=== PATIENT | female | born 1985 | race Caucasian/White ===

== ENCOUNTER 2021-02-06 12:02 | Outpatient (REF) | payer MEDICARE, SELFPAY ==
[2021-02-06 13:44] LABS: MANUAL DIFF FLAG NO
[2021-02-06 13:58] LABS: Basophils Absolute Auto 0.1 X10*3/uL (0.0-0.2); Basophils Percent Auto 0.7 % (0-2); Eosinophils Absolute Auto 0.1 X10*3/uL (0.0-0.4); Eosinophils Percent Auto 1.9 % (0-4); Hematocrit 29.6 % (37-47); Hemoglobin 8.5 g/dl (12.0-16.0); Imm Gran Abs Auto 0.01 X10*3/uL (0.00-0.03); Imm Gran Pct Auto 0.1 % (0.0-0.4); Lymphocytes Absolute Auto 1.8 X10*3/uL (1.2-4.9); Lymphocytes Percent Auto 26.2 % (20-40); Mean Corpuscular HGB Conc 28.7 g/dl (31.0-35.0); Mean Corpuscular Hemoglobin 19.5 pg (27.0-33.0); Mean Platelet Volume 10.1 fL (9.4-12.3); Monocytes Absolute Auto 0.6 X10*3/uL (0.1-1.2); Monocytes Percent Auto 8.4 % (2-11); Neutrophils Absolute Auto 4.2 X10*3/uL (2.0-8.3); Neutrophils Percent Auto 62.7 % (45-73); Platelet Count 289 X10*3/uL (160-400); Red Blood Count 4.35 X10*6/uL (4.20-5.50); Red Cell Distribution Width 17.2 % (11.0-16.0); White Blood Count 6.7 X10*3/uL (4.8-10.8)
[2021-02-06 14:09] LABS: Alanine Aminotransferase 13 U/L (0-31); Albumin Level 3.9 g/dL (3.5-5.0); Alkaline Phosphatase 87 U/L (39-117); Anion Gap 12 (12-20); Aspartate Amino Transferase 14 U/L (5-31); Bilirubin Total 0.4 mg/dL (0.0-1.0); Blood Urea Nitrogen 6 mg/dL (9-16); C Reactive Protein 0.17 mg/dL (< or = 0.50); Calcium 8.8 mg/dL (8.4-10.2); Carbon Dioxide 24 mmol/L (22-29); Chloride 104 mmol/L (96-108); Cholesterol 143 mg/dL; Estimated Glomerular Filt Rate > 60; Glucose Fasting 83 mg/dL (60-99); HDL Cholesterol 55 mg/dL; Iron 21 mcg/dL (30-160); LDL Cholesterol Calculated 78 mg/dl; Magnesium 1.9 mg/dL (1.6-2.6); Percent Iron Saturation 4 % (15-50); Potassium 3.9 mmol/L (3.3-5.1); Sodium 136 mmol/L (135-145); Total Iron Binding Capacity 487 mcg/dL (228-428); Total Protein 6.3 g/dL (6.5-8.0); Triglycerides 53 mg/dL; Unsaturated Iron Binding 466 ug/dL
[2021-02-06 14:33] LABS: Free T4 (Free Thyroxine) 1.03 ng/dL (0.71-1.85); Thyroid Stimulating Hormone 1.56 uIU/mL (0.32-4.0); Vitamin D 25-OH Total 15.2 ng/mL (>30)
[2021-02-06 14:50] LABS: Vitamin B12 < 146 pg/mL (200-900)
[2021-02-07 09:07] LABS: Follicle Stimulating Hormone 5.5 mIU/mL; Lutenizing Hormone 15.2 mIU/mL
== END 2021-02-06 12:03 | disposition home or self-care (01) ==
LOC: HO.10HDL 12:02
PROVIDERS: Visit Provider Internal Medicine
DX: Z00.00 Encounter for general adult medical examination without abnormal findings (principal); E55.9 Vitamin D deficiency, unspecified; D64.9 Anemia, unspecified; D51.9 Vitamin B12 deficiency anemia, unspecified
CPT/HCPCS: 36415; 80053; 80061; 82306; 82607; 83001; 83002; 83540; 83735; 84439; 84443; 85025; 86140

== ENCOUNTER 2021-07-24 14:56 | Outpatient (REF) | payer MEDICARE, SELFPAY ==
--- NOTE | ~2021-07-24 | CT_ITS ---
EXAMINATION: CT ABDOMEN AND PELVIS WITHOUT CONTRAST CLINICAL INFORMATION: Generalized abdominal pain. COMPARISON: CT abdomen and pelvis 07/04/2019 TECHNIQUE: Multidetector volumetric imaging was performed from the superior aspect of the liver through the pubic symphysis. Sagittal and coronal reformatted images were obtained on the technologist's workstation. This CT examination was performed using dose optimization techniques as appropriate, variously including the following: *Automated exposure control *Adjustment of mA and/or kV according to patient size (this includes techniques or standardized protocols for targeted exams where dose is matched to indication/reason for exam; i.e. extremities or head) *Use of iterative reconstruction technique DLP: DLP: 615 mGy-cm FINDINGS: LUNG BASES: There is ill-defined subpleural opacity of the left lung base likely scarring versus atelectasis. LIVER, GALLBLADDER, AND BILIARY TREE: The liver is normal in size, shape, and attenuation. No focal hepatic lesion or biliary ductal dilatation is present. The gallbladder is unremarkable with no evidence of radiopaque gallstones, gallbladder wall thickening, or obvious pericholecystic inflammatory changes. PANCREAS: Unremarkable. SPLEEN: There is a tiny accessory splenule. ADRENAL GLANDS: There is a 1.9 x 1.5 cm left adrenal nodule measuring 30 Hounsfield units. The right adrenal gland is normal.. KIDNEYS AND URETERS: Both kidneys are normal in size, contour and shape. No radiopaque renal calculi or hydronephrosis seen. There is no perinephric stranding. BLADDER: Unremarkable. GASTROINTESTINAL TRACT: There is moderate scattered stool in the colon without any significant distention. The small bowel loops are of normal caliber. The appendix is not visualized with certainty. No free air or free fluid is seen. The stomach is nondistended. ABDOMINAL WALL: No significant hernia is appreciated. LYMPH NODES: No abnormal sized lymph nodes are seen. VASCULAR: Unremarkable. PELVIC VISCERA: The uterus is anteverted with scattered calcifications in the right uterus likely fibroid disease. There is a López catheter within the bladder. There is no free fluid in the cul-de-sac. OSSEOUS STRUCTURES: There are moderate bridging osteophytes throughout the lumbar spine. No lytic or sclerotic process seen. CT/CT abdomen pelvis wo con IMPRESSION: Left adrenal mass measuring 1.9 x 1.5 cm. Previously it measured 1.8 x 1.9 x 1.10 cm. It is not a simple adenoma. Recommend further evaluation with MRI abdomen without and with contrast. Calcified lesion right uterus likely fibroid disease. Significant degenerative disease throughout the lumbar spine. Overall no change compared to last CT abdomen exam 07/04/2019.
== END 2021-07-24 14:57 | disposition home or self-care (01) ==
LOC: HO.CT 14:56
PROVIDERS: PCP Internal Medicine; Visit Provider Internal Medicine
DX: R10.84 Generalized abdominal pain (principal)
CPT/HCPCS: 74176

== ENCOUNTER 2021-11-16 11:50 | Inpatient (IN) | payer MEDICARE, SELFPAY ==
--- NOTE | ~2021-11-16 | CT_ITS ---
EXAMINATION: CT PELVIS WITH CONTRAST CLINICAL INFORMATION: Buttock wound COMPARISON: None TECHNIQUE: Helical scanning was performed with submillimeter collimation through the pelvis with the use of oral contrast and during bolus intravenous injection of 85 mL of Omnipaque 350 intravenous contrast. Sagittal and coronal multiplanar 2-D reconstructions were obtained. This CT examination was performed using dose optimization techniques as appropriate, variously including the following: *Automated exposure control *Adjustment of mA and/or kV according to patient size (this includes techniques or standardized protocols for targeted exams where dose is matched to indication/reason for exam; i.e. extremities or head) *Use of iterative reconstruction technique DLP: 315 mGy-cm FINDINGS: PELVIS: There is disc cubital ulcer along the posterior left upper thigh with underlying subcutaneous abscess measures 5 x 5.3 cm, the abscess is abutting the left ischio bone without CT evidence of bone destruction. The fluid does not involve the deep pelvic musculature or intrapelvic organs. There is a López catheter in the urinary bladder. There are uterine masses likely fibroids one of which is partially calcified. Included bowels unremarkable. No adenopathy. No free air or fluid in the pelvis. OSSEOUS STRUCTURES: There are degenerative osteoarthritic changes of hip joints and spine. No destructive bony changes. CT/CT pelvis w con IMPRESSION: *Left posterior upper thigh decubital ulcer with subcutaneous abscess directly open to the ulcer extends deep abutting the pelvic bone without CT evidence of bone destruction to suggest osteomyelitis at this time. *López catheter in place in the bladder. *There are uterine masses likely fibroids. *Arthritis.
--- NOTE | 2021-11-16 11:57 | ED_ITS ---
HPI - General Adult General Chief complaint: Wound/Laceration Stated complaint: L BUTTOCK WOUND PER EMS Time Seen by Provider: 11/16/21 11:52 Source: patient, family and EMS Mode of arrival: EMS Limitations: no limitations History of Present Illness HPI narrative: 36 yo female with history of spinal cord injury (subsequent para) here with complaints of buttocks wound noted to the left buttocks x 1 month. Initially during a transfer she had a abrasion described as rug burn which occurred one month ago, worsening over the last week. Seen by PCP yesterday and referred in to the ER for further eval. No fevers, chills. +nausea, diarrhea. Related Data Home Medications Medication Instructions Recorded Confirmed baclofen 20 mg tablet 1 tab PO BID 11/16/21 11/16/21 darifenacin 7.5 mg tablet,extended 1 tab PO DAILY 11/16/21 11/16/21 release 24 hr docusate sodium 100 mg capsule 100 mg PO DAILY 11/16/21 11/16/21 (Colace) gabapentin 300 mg capsule 1 cap PO TID 11/16/21 11/16/21 multivitamin 1 tab PO DAILY 11/16/21 11/16/21 sertraline 100 mg tablet 1.5 tab PO DAILY 11/16/21 11/16/21 Allergies Allergy/AdvReac Type Severity Reaction Status Date / Time cashew nut [CASHEW NUT] Allergy Unknown VOMITING Unverified 04/26/20 16:32 Iodinated Contrast Media Allergy Unknown HIVES Unverified 04/26/20 16:32 [IV CONTRAST] latex [LATEX] Allergy Unknown RASH Unverified 04/26/20 16:32 latix Allergy Unknown rash Uncoded 11/02/19 00:00 Review of Systems Review of Systems: Yes all other systems are reviewed and are negative Constitutional: Constitutional: Reports no additional constitutional complaints, Denies body ache(s), Denies chills, Denies fever(s), Denies headache(s) and Denies weakness Eyes: Eyes: Reports no additional eye complaints and Denies change in vision ENT: Reports system reviewed and no additional complaints, except as documented, Denies dizziness, Denies headache(s), Denies nasal congestion, Denies nasal discharge and Denies neck pain Cardiovascular: Cardiovascular: Reports no additional cardiovascular complaints, Denies chest pain, Denies leg edema and Denies dyspnea Respiratory: Respiratory: Reports no additional respiratory complaints, Denies cough and Denies dyspnea Gastrointestinal: Gastrointestinal: Reports no additional gastrointestinal complaints, Denies abdominal pain, Reports diarrhea, Reports nausea and Denies vomiting Genitourinary: Genitourinary: Reports no additional female genitourinary complaints and Denies urinary incontinence Musculoskeletal: Musculoskeletal: Reports no additional musculoskeletal complaints, Denies back pain, Denies arthralgias, Denies joint swelling, Denies neck pain, Denies numbness and Denies tingling Integumentary/Breasts: Skin/Breast: Reports system reviewed and no additional complaints, except as docu, Denies rash and Reports wounds Neurologic: Reports system reviewed and no additional complaints, except as documented, Denies dizziness, Denies headache(s), Denies numbness, Denies tingling and Denies weakness PMFSH Past Medical History Attestation statement: The following information was validated with the patient. Source: old records reviewed and nursing notes reviewed Medical History Hx of neck injury Spinal cord injury, C5-C7 Social History Social History Patient Tobacco Use Status: Never used Tobacco Use of substances other than those prescribed or required for medical reasons: No Advance Directives: No Advance Directives Information Provided: No Physical Exam ED Vital Signs: Vital Signs - 24 hr 11/16/21 11:58 11/16/21 14:40 Temperature 99.0 F Pulse Rate 84 89 Respiratory Rate 18 18 Blood Pressure 105/58 L 126/75 Pulse Oximetry 98 98 BMI result Body Mass Index 23.6 Const General: cooperative Orientation/consciousness: patient oriented x3 Limitations: wheelchair HENMT Head: Yes normal to inspection Ears: hearing grossly normal bilaterally and TM's normal bilaterally General nose exam: Normal external nose present Face and sinus: Yes normal facial exam Mouth: Normal oral and palatal mucosa present Throat: Yes posterior oropharynx normal, Yes tonsils normal and Yes uvula midline Eyes General: appearance normal, both eyes and all related structures Pupils: Equal, round and reactive pupils present Neck Neck: Yes normal visual inspection Chest Chest palpation & inspection: normal inspection of the chest Resp Effort & Inspection: normal respiratory effort Auscultation: clear to auscultation bilaterally Cardio Rate: regular rate Rhythm: regular rhythm Peripheral pulses: Peripheral pulses 2+ throughout GI Inspection: Yes normal to inspection Back/Spine/Pelvis Other: Neuro General: patient oriented x3 Cranial nerves: Yes Equal, round and reactive pupils present Course Course Course Narrative: 36 yo female here with wound to left buttocks x 1 month worsened over last week. Will need labs including blood cultures, lactic acid, CT w/ contrast (needs pre- medication with benadryl d/t having a single lesion on cheek from previous CT thought to be allergic reaction), COVID testing, urine . At this time i nfection is suspected. Antibiotics ordered. 1500-Labs show microcytic anemia (patient tells me she has BRITT and Vit B12 deficiency but has been noncompliant with medications)-denies current bleeding, elevated inflammatory markers. CT shows ulcer with SQ abscess extending to the pelvic bone with no evidence of osteomyelitis. I anticipate the wound will need debridement with surgical consult. Will admit to medicine d/t underlying medical conditions. 1550-Spoke to Dr Keller who will admit patient. Medical Decision Making Medical Records Medical records reviewed: Yes I reviewed the patient's medical records. Lab Data Lab results reviewed: Yes I reviewed the patient's lab results. Result diagrams: 11/16/21 12:46 11/16/21 12:46 Labs: Lab Results 11/16/21 11/16/21 11/16/21 Range/Units 12:46 12:46 12:46 WBC 7.3 (4.8-10.8) X10*3/uL RBC 4.17 L (4.20-5.50) X10*6/uL Hgb 7.8 L (12.0-16.0) g/dl Hct 27.4 L (37.0-47.0) % MCV 65.7 L (80.0-98.0) fL MCH 18.7 L (27.0-33.0) pg MCHC 28.5 L (31.0-35.0) g/dl RDW 17.5 H (11.0-16.0) % Plt Count 388 (160-400) X10*3/uL MPV 8.9 L (9.4-12.3) fL Immature Gran % (Auto) 0.3 (0.0-0.4) % Neut % (Auto) 62.7 (45-73) % Lymph % (Auto) 22.3 (20-40) % Schuyler % (Auto) 11.7 H (2-11) % Eos % (Auto) 2.2 (0-4) % Baso % (Auto) 0.8 (0-2) % Lymph # (Auto) 1.6 (1.2-4.9) X10*3/uL [place]uyler # (Auto) 0.9 (0.1-1.2) X10*3/uL Eos # (Auto) 0.2 (0.0-0.4) X10*3/uL Baso # (Auto) 0.1 (0.0-0.2) X10*3/uL Abs Immat Gran (auto) 0.02 (0.00-0.03) X10*3/uL Absolute Neuts (auto) 4.6 (2.0-8.3) x10*3/uL Absolute Nucleated RBC 0.000 (0.0-0.012) X10*3/uL Nucleated RBC % (auto) 0.0 (0.0-0.2) /100WBC ESR 20 (0-20) MM/HR Sodium 135 (135-145) mmol/L Potassium 4.3 (3.3-5.1) mmol/L Chloride 104 (96-108) mmol/L Carbon Dioxide 18 L (22-29) mmol/L Anion Gap 17 (12-20) BUN 5 L (9-16) mg/dL Creatinine 0.44 L (0.5-1.4) mg/dL Estim Creat Clear Calc 182.9 Estimated GFR > 60 Random Glucose 86 (60-115) mg/dL Lactic Acid (0.5-2.0) mmol/L Calcium 8.6 (8.4-10.2) mg/dL Total Bilirubin 0.3 (0.0-1.0) mg/dL Direct Bilirubin < 0.2 (0.0-0.5) mg/dL AST 24 D (5-31) U/L ALT 14 (0-31) U/L Alkaline Phosphatase 82 (39-117) U/L C-Reactive Protein 3.05 H (< or = 0.50) mg/dL Total Protein 6.0 L (6.5-8.0) g/dL Albumin 3.3 L (3.5-5.0) g/dL Urine Test (NEGATIVE) COVID-19 (KARYNA) (Negative) COVID-19 Clin Com 11/16/21 11/16/21 11/16/21 Range/Units 12:46 12:58 13:14 WBC (4.8-10.8) X10*3/uL RBC (4.20-5.50) X10*6/uL Hgb (12.0-16.0) g/dl Hct (37.0-47.0) % MCV (80.0-98.0) fL MCH (27.0-33.0) pg MCHC (31.0-35.0) g/dl RDW (11.0-16.0) % Plt Count (160-400) X10*3/uL MPV (9.4-12.3) fL Immature Gran % (Auto) (0.0-0.4) % Neut % (Auto) (45-73) % Lymph % (Auto) (20-40) % Schuyler % (Auto) (2-11) % Eos % (Auto) (0-4) % Baso % (Auto) (0-2) % Lymph # (Auto) (1.2-4.9) X10*3/uL Schuyler # (Auto) (0.1-1.2) X10*3/uL Eos # (Auto) (0.0-0.4) X10*3/uL Baso # (Auto) (0.0-0.2) X10*3/uL Abs Immat Gran (auto) (0.00-0.03) X10*3/uL Absolute Neuts (auto) (2.0-8.3) x10*3/uL Absolute Nucleated RBC (0.0-0.012) X10*3/uL Nucleated RBC % (auto) (0.0-0.2) /100WBC ESR (0-20) MM/HR Sodium (135-145) mmol/L Potassium (3.3-5.1) mmol/L Chloride (96-108) mmol/L Carbon Dioxide (22-29) mmol/L Anion Gap (12-20) BUN (9-16) mg/dL Creatinine (0.5-1.4) mg/dL Estim Creat Clear Calc Estimated GFR Random Glucose (60-115) mg/dL Lactic Acid 0.9 (0.5-2.0) mmol/L Calcium (8.4-10.2) mg/dL Total Bilirubin (0.0-1.0) mg/dL Direct Bilirubin (0.0-0.5) mg/dL AST (5-31) U/L ALT (0-31) U/L Alkaline Phosphatase (39-117) U/L C-Reactive Protein (< or = 0.50) mg/dL Total Protein (6.5-8.0) g/dL Albumin (3.5-5.0) g/dL Urine Test NEGATIVE (NEGATIVE) COVID-19 (KARYNA) Negative (Negative) COVID-19 Clin Com See Note Imaging Data CT pelvis w/ contrast: Attestation: I personally reviewed and interpreted this imaging study as follows: Radiologist's impression: FINDINGS: PELVIS: There is disc cubital ulcer along the posterior left upper thigh with underlying subcutaneous abscess measures 5 x 5.3 cm, the abscess is abutting the left ischio bone without CT evidence of bone destruction. The fluid does not involve the deep pelvic musculature or intrapelvic organs. There is a López catheter in the urinary bladder. There are uterine masses likely fibroids one of which is partially calcified. Included bowels unremarkable. No adenopathy. No free air or fluid in the pelvis. OSSEOUS STRUCTURES: There are degenerative osteoarthritic changes of hip joints and spine. No destructive bony changes.? CT/CT pelvis w con IMPRESSION: *Left posterior upper thigh decubital ulcer with subcutaneous abscess directly open to the ulcer extends deep abutting the pelvic bone without CT evidence of bone destruction to suggest osteomyelitis at this time. ? *López catheter in place in the bladder. ? Discharge Plan Discharge Clinical Impression: Abscess, Anemia Patient Disposition: Admitted As Inpatient
[2021-11-16 11:58] VITALS: BP 105/58; BP 98/60; PULSE 84; PULSE 88; RESP 18; TEMP 37.2; O2SAT 98; O2SAT 99; BMI 23.6
--- NOTE | 2021-11-16 12:25 | PC.NURSE ---
pt has a medium size wound on her left mid coccyx area, wound is open with possible tunneling/some slothing with yellowing and black areas with some foul odder present
[2021-11-16 12:53] LABS: MANUAL DIFF FLAG NO
[2021-11-16 13:03] LABS: Basophils Absolute Auto 0.1 X10*3/uL (0.0-0.2); Basophils Percent Auto 0.8 % (0-2); Eosinophils Absolute Auto 0.2 X10*3/uL (0.0-0.4); Eosinophils Percent Auto 2.2 % (0-4); Hematocrit 27.4 % (37.0-47.0); Hemoglobin 7.8 g/dl (12.0-16.0); Imm Gran Abs Auto 0.02 X10*3/uL (0.00-0.03); Imm Gran Pct Auto 0.3 % (0.0-0.4); Lymphocytes Absolute Auto 1.6 X10*3/uL (1.2-4.9); Lymphocytes Percent Auto 22.3 % (20-40); Mean Corpuscular HGB Conc 28.5 g/dl (31.0-35.0); Mean Corpuscular Hemoglobin 18.7 pg (27.0-33.0); Mean Corpuscular Volume 65.7 fL (80.0-98.0); Mean Platelet Volume 8.9 fL (9.4-12.3); Monocytes Absolute Auto 0.9 X10*3/uL (0.1-1.2); Monocytes Percent Auto 11.7 % (2-11); Neutrophils Absolute Auto 4.6 x10*3/uL (2.0-8.3); Neutrophils Percent Auto 62.7 % (45-73); Platelet Count 388 X10*3/uL (160-400); Red Blood Count 4.17 X10*6/uL (4.20-5.50); Red Cell Distribution Width 17.5 % (11.0-16.0); White Blood Count 7.3 X10*3/uL (4.8-10.8)
[2021-11-16 13:05] LABS: Lactic Acid 0.9 mmol/L (0.5-2.0)
[2021-11-16] MEDS: Ketorolac Tromethamine 30 MG/ML VIAL IVPUSH (13:15)
[2021-11-16] MEDS: Piperacillin Sodium/Tazobactam 3.375 GM in 0.9 % Sodium Chloride 50 ML IV (13:16)
[2021-11-16] MEDS: diphenhydrAMINE HCL 50 MG/ML VIAL IVPUSH (13:16)
[2021-11-16 13:18] LABS: Alanine Aminotransferase 14 U/L (0-31); Albumin Level 3.3 g/dL (3.5-5.0); Alkaline Phosphatase 82 U/L (39-117); Anion Gap 17 (12-20); Aspartate Amino Transferase 24 U/L (5-31); Bilirubin Direct < 0.2 mg/dL (0.0-0.5); Bilirubin Total 0.3 mg/dL (0.0-1.0); Blood Urea Nitrogen 5 mg/dL (9-16); C Reactive Protein 3.05 mg/dL (< or = 0.50); Calcium 8.6 mg/dL (8.4-10.2); Carbon Dioxide 18 mmol/L (22-29); Chloride 104 mmol/L (96-108); Creatinine Clr Calc Pharmacy 182.9; Estimated Glomerular Filt Rate > 60; Glucose Random 86 mg/dL (60-115); Potassium 4.3 mmol/L (3.3-5.1); Sodium 135 mmol/L (135-145)
[2021-11-16 13:18] LABS: COVID-19 Test Negative (Negative); IDNOW Serial# 16C4AD1C
--- NOTE | 2021-11-16 13:26 | PHA.MEDREC ---
Pharmacy Consult ? Medication Reconciliation Pharmacy has completed the medication reconciliation. Patient states that the baclofen dose decreased to 20mg BID. Gabapentin was increased to QID very recently, but patient is still doing TID. Thanks Ezequiel
[2021-11-16 13:38] LABS: UPreg QC Valid YES; Urine Pregnancy NEGATIVE (NEGATIVE)
[2021-11-16 13:45] LABS: Erythrocyte Sedimentation Rate 20 MM/HR (0-20)
[2021-11-16] MEDS: iohexoL 350 MG/ML 100 ML INFUS..BTL IV (14:22)
[2021-11-16 14:40] VITALS: BP 126/75; PULSE 89; RESP 18; O2SAT 98
[2021-11-16] MEDS: vancomycin HCL 1,500 MG in 0.9 % Sodium Chloride 500 ML 333.33 MG IV (14:42)
[2021-11-16 16:06] VITALS: BP 119/69; PULSE 83; RESP 16; O2SAT 98
--- NOTE | 2021-11-16 16:29 | P.HPHOSP_ITS ---
History of Present Illness Date of Service: 11/16/21 Chief Complaint: gluteal decubitus 36-year-old female with history of spinal cord injury at the age of 18 and subsequent paraplegia presents with a left buttock cheek decubitus. She was seen by her PCP yesterday and he felt that she should seek IV antibiotics/ER evaluation. When queried patient states about a month ago she developed an abrasion from a slide board. She states over the last week it has been worsening and now is painful. She denies fever and chills. She denies other injuries. In the ER, CT scan of the pelvis demonstrated a left posterior upper thigh decubital ulcer with subcutaneous abscess directly open to the ulcer extends deep to the buttock and pelvic bone without evidence of destruction to suggest osteomyelitis. She will be admitted for IV antibiotics and surgical consultation Review of Systems Review of Systems: Denies chest pain Denies shortness of breath Denies nausea vomiting diarrhea Denies fever chills PMFSH Medical History Hx of neck injury Spinal cord injury, C5-C7 Social History Patient Tobacco Use Status: Never used Tobacco Use of substances other than those prescribed or required for medical reasons: No Advance Directives: No Advance Directives Information Provided: No Meds Allergies Allergy/AdvReac Type Severity Reaction Status Date / Time cashew nut [CASHEW NUT] Allergy Unknown VOMITING Unverified 04/26/20 16:32 Iodinated Contrast Media Allergy Unknown HIVES Unverified 04/26/20 16:32 [IV CONTRAST] latex [LATEX] Allergy Unknown RASH Unverified 04/26/20 16:32 latix Allergy Unknown rash Uncoded 11/02/19 00:00 Active Medications: Current Medications Baclofen (Baclofen 20 Mg Tablet) 20 mg PO BID LYRIC Docusate Sodium (Docusate Sodium 100 Mg Capsule) 100 mg PO DAILY L[facility]IC Gabapentin (Gabapentin 300 Mg Capsule) 300 mg PO TID LYRIC Piperacillin Sod/Tazobactam (Sod 4.5 gm/ Sodium Chloride) 100 mls @ 200 mls/hr IV Q6H LYRIC Lorazepam (Lorazepam 0.5 Mg Tablet) 0.5 mg PO Q6H PRN PRN Reason: Anxiety Multivitamins/Vitamin C (Multivitamin Tablet) 1 tab PO DAILY [facility] Non-Formulary Medication (Darifenacin) 1 tab PO DAILY [facility] Oxycodone HCl (Oxycodone Hcl Immed Release 5 Mg Tablet) 5 mg PO Q6H PRN PRN Reason: Pain, Moderate (Pain Scale 4-6 Pharmacy Consult (Consult Rx Perform Med Rec) 1 each MISCELLANE ONCE PRN PRN Reason: Consult order Pharmacy Consult (Consult Rx Vancomycin Dosing) 1 each MISCELLANE DAILY PRN PRN Reason: Consult order Sertraline HCl (Sertraline Hcl 50 Mg Tablet) 150 mg PO DAILY [facility] Home Medications Medication Instructions Recorded Confirmed Last Taken Type baclofen 20 mg tablet 1 tab PO BID 11/16/21 11/16/21 11/16/21 History darifenacin 7.5 mg tablet,extended 1 tab PO DAILY 11/16/21 11/16/21 11/16/21 History release 24 hr docusate sodium 100 mg capsule 100 mg PO DAILY 11/16/21 11/16/21 11/16/21 History (Colace) gabapentin 300 mg capsule 1 cap PO TID 11/16/21 11/16/21 11/16/21 History multivitamin 1 tab PO DAILY 11/16/21 11/16/21 11/16/21 History sertraline 100 mg tablet 1.5 tab PO DAILY 11/16/21 11/16/21 11/16/21 History Physical Exam Vital Signs and Narrative: Vital Signs: Last Vital Signs Temp 99.0 F 11/16/21 11:58 Pulse 83 11/16/21 16:06 Resp 16 11/16/21 16:06 BP 119/69 11/16/21 16:06 Pulse Ox 98 11/16/21 16:06 BMI result Body Mass Index 23.6 Const: Other: Awake alert oriented x3 no acute distress Resp: Other: Clear to auscultation bilaterally no rales rhonchi or wheezes Cardio: Other: No S4; positive S1-S2; no S3 murmurs or gallops GI: Other: Soft nontender nondistended with normoactive bowel sounds Neuro: Other: C5 through C7 paraplegia; cranial nerves 2-12 grossly intact as tested. Cognition appropriate Extrem: Other: No edema bilaterally Results Labs CBC and Chem 7: 11/16/21 12:46 11/16/21 12:46 Labs: Laboratory Results - last 24 hr 11/16/21 11/16/21 11/16/21 12:46 12:46 12:46 MCV 65.7 L MCH 18.7 L MCHC 28.5 L RDW 17.5 H Plt Count 388 MPV 8.9 L Immature Gran % (Auto) 0.3 Neut % (Auto) 62.7 Lymph % (Auto) 22.3 [place] % (Auto) 11.7 H Eos % (Auto) 2.2 Baso % (Auto) 0.8 Lymph # (Auto) 1.6 [place] # (Auto) 0.9 Eos # (Auto) 0.2 Baso # (Auto) 0.1 Abs Immat Gran (auto) 0.02 Absolute Neuts (auto) 4.6 Absolute Nucleated RBC 0.000 Nucleated RBC % (auto) 0.0 ESR 20 Anion Gap 17 Estim Creat Clear Calc 182.9 Estimated GFR > 60 Random Glucose 86 Lactic Acid Calcium 8.6 Total Bilirubin 0.3 Direct Bilirubin < 0.2 AST 24 D ALT 14 Alkaline Phosphatase 82 C-Reactive Protein 3.05 H Total Protein 6.0 L Albumin 3.3 L Urine Test COVID-19 (KARYNA) COVID-19 [employer] Com 11/16/21 11/16/21 11/16/21 12:46 12:58 13:14 MCV MCH MCHC RDW Plt Count MPV Immature Gran % (Auto) Neut % (Auto) Lymph % (Auto) [place] % (Auto) Eos % (Auto) Baso % (Auto) Lymph # (Auto) [place] # (Auto) Eos # (Auto) Baso # (Auto) Abs Immat Gran (auto) Absolute Neuts (auto) Absolute Nucleated RBC Nucleated RBC % (auto) ESR Anion Gap Estim Creat Clear Calc Estimated GFR Random Glucose Lactic Acid 0.9 Calcium Total Bilirubin Direct Bilirubin AST ALT Alkaline Phosphatase C-Reactive Protein Total Protein Albumin Urine Test NEGATIVE COVID-19 (KARYNA) Negative COVID-19 Clin Com See Note Imaging Radiologist's Impressions: Impressions Pelvis CT 11/16/21 14:19 IMPRESSION: *Left posterior upper thigh decubital ulcer with subcutaneous abscess directly open to the ulcer extends deep abutting the pelvic bone without CT evidence of bone destruction to suggest osteomyelitis at this time. *López catheter in place in the bladder. *There are uterine masses likely fibroids. *Arthritis. Assessment and Plan (1) Paraplegia: Status: Acute (2) Abscess: Status: Acute (3) Stage IV decubitus ulcer: Status: Acute Plan 36-year-old female with cervical fracture and subsequent paraplegia presents with stage IV gluteal decubitus on left buttocks. Was seen by PCP and advised admission. She denies fever chills. She states this painful and has been worsening. 1. Decubitus ulcer left gluteus -IV vancomycin and Zosyn -pain management with oxycodone -blood cultures pending -surgical consult for possible debridement/drainage of abscess -continue all outpatient therapy 2. Anxiety -continue sertraline -p.r.n. Ativan Full code Lovenox Anticipated least 2 midnights going forward for surgical debridement and IV antibiotic therapy Quality Stroke Does the patient have a stroke diagnosis?: No VTE Prior VTE?: No VTE Risk Level:: Medical - moderate - high VTE Device Contraindication: Treatment Not Indicated VTE Drug Contraindication: N/A - Med Ordered
[2021-11-16] MEDS: Enoxaparin Sodium 40 MG/0.4 ML SYRINGE SUBCUT (18:08)
[2021-11-16] MEDS: Piperacillin Sodium/Tazobactam 4.5 GM in 0.9 % Sodium Chloride 100 ML IV (19:14)
[2021-11-16] MEDS: oxyCODONE HCl Immed Release 5 MG TABLET PO (19:41)
[2021-11-16] MEDS: Gabapentin 300 MG CAPSULE PO (22:05)
[2021-11-16] MEDS: Baclofen 20 MG TABLET PO (22:05)
[2021-11-17] MEDS: Piperacillin Sodium/Tazobactam 4.5 GM in 0.9 % Sodium Chloride 100 ML IV ×4 (01:06→18:44)
[2021-11-17 01:46] VITALS: BP 119/77; PULSE 87; RESP 16; TEMP 36.7; O2SAT 98
[2021-11-17] MEDS: vancomycin HCL 1,250 MG in 0.9 % Sodium Chloride 250 ML 166.67 MG IV ×2 (02:20→16:01)
[2021-11-17] MEDS: LORazepam 0.5 MG TABLET PO ×2 (02:21→19:36)
[2021-11-17 04:11] LABS: MANUAL DIFF FLAG NO
[2021-11-17 04:21] LABS: Basophils Percent Auto 0.6 % (0-2); Eosinophils Absolute Auto 0.2 X10*3/uL (0.0-0.4); Eosinophils Percent Auto 2.9 % (0-4); Hematocrit 27.5 % (37.0-47.0); Hemoglobin 7.8 g/dl (12.0-16.0); Imm Gran Abs Auto 0.02 X10*3/uL (0.00-0.03); Imm Gran Pct Auto 0.3 % (0.0-0.4); Lymphocytes Absolute Auto 1.7 X10*3/uL (1.2-4.9); Lymphocytes Percent Auto 26.5 % (20-40); Mean Corpuscular HGB Conc 28.4 g/dl (31.0-35.0); Mean Corpuscular Hemoglobin 18.9 pg (27.0-33.0); Mean Corpuscular Volume 66.7 fL (80.0-98.0); Mean Platelet Volume 9.4 fL (9.4-12.3); Monocytes Absolute Auto 0.8 X10*3/uL (0.1-1.2); Monocytes Percent Auto 12.5 % (2-11); Neutrophils Absolute Auto 3.7 x10*3/uL (2.0-8.3); Neutrophils Percent Auto 57.2 % (45-73); Platelet Count 413 X10*3/uL (160-400); Red Blood Count 4.12 X10*6/uL (4.20-5.50); Red Cell Distribution Width 17.6 % (11.0-16.0); White Blood Count 6.5 X10*3/uL (4.8-10.8)
[2021-11-17 04:55] LABS: Anion Gap 15 (12-20); Blood Urea Nitrogen 5 mg/dL (9-16); Calcium 8.7 mg/dL (8.4-10.2); Carbon Dioxide 19 mmol/L (22-29); Chloride 106 mmol/L (96-108); Creatinine Clr Calc Pharmacy 182.9; Estimated Glomerular Filt Rate > 60; Glucose Random 79 mg/dL (60-115); Potassium 3.9 mmol/L (3.3-5.1); Sodium 136 mmol/L (135-145)
--- NOTE | 2021-11-17 06:24 | PC.NURSE ---
Pt sleeping, chest rise and fall observed, Pt given Ativan for rest,Pt remained complaint free throughout the night, safety maintained, call light in reach, this RN continues to monitor.
[2021-11-17] MEDS: 0.9 % Sodium Chloride Flush 3 ML SYRINGE IVFLUSH ×3 (07:30→21:08)
[2021-11-17] MEDS: Baclofen 20 MG TABLET PO ×2 (09:54→21:08)
[2021-11-17] MEDS: Docusate Sodium 100 MG CAPSULE PO (09:55)
[2021-11-17] MEDS: Sertraline HCL 50 MG TABLET 150 MG PO (09:55)
[2021-11-17] MEDS: Gabapentin 300 MG CAPSULE PO ×3 (09:55→21:08)
[2021-11-17] MEDS: oxyCODONE HCl Immed Release 5 MG TABLET PO (09:55)
[2021-11-17 11:26] VITALS: BP 132/73; PULSE 87; TEMP 36.6; O2SAT 98
--- NOTE | 2021-11-17 14:00 | MHC.CM.PN ---
IMM 11/17/21 FEMALE 36 DX ULCER SHE LIVES ALONE WITH PAID HELP. PRIVATE DUTY AMATA 5-9 AND 10-6AM. SHE STATES THAT SHE MAY NEED MORE HOURS. VAX X3 PFIZER. REQUESTED A COPY OF THE PTS HCP. PREFERENCES FOR FACILITIES AND HOME CARE AGENCIES, WERE NOT OBTAINED. THE PT WANTS TO PLAN AFTER THE WOUND DEBRIDEMENT. SHE DECLINED DC PLANNING AT THIS TIME. DP HOME WITH SERVICES FOR WOUND CARE AND ASSESSMENT. SHE WILL NEED BLS R/T STAGE 4 PRESSURE ULCER.
--- NOTE | 2021-11-17 15:42 | PM.HPGS ---
History of Present Illness History of Present Illness Date of Service: 11/17/21 Chief complaint: ulcer Narrative: Day Vazquez is a 36 year old female PARAPLEGIC FOR 25 YRS NOW WITH FIRST DECUBITUS ULCER - has progressed over the last month adn now sent to [facility] ER and CT schowing deeper wound near ischial bone but no evidence of osteo. surgical consult obtained Review of Systems Review of Systems: Yes all other systems are reviewed and are negative PMFSH Past Medical History Medical History Hx of neck injury Spinal cord injury, C5-C7 Social History Social History Patient Tobacco Use Status: Never used Tobacco Use of substances other than those prescribed or required for medical reasons: No Advance Directives: No Advance Directives Information Provided: No service: No Current occupational status: disabled Meds Allergies Allergy/AdvReac Type Severity Reaction Status Date / Time cashew nut [CASHEW NUT] Allergy Unknown VOMITING Unverified 04/26/20 16:32 Iodinated Contrast Media Allergy Unknown HIVES Unverified 04/26/20 16:32 [IV CONTRAST] latex [LATEX] Allergy Unknown RASH Unverified 04/26/20 16:32 latix Allergy Unknown rash Uncoded 11/02/19 00:00 Active Medications: Current Medications Baclofen (Baclofen 20 Mg Tablet) 20 mg PO BID [facility] Last Admin: 11/17/21 09:54 Dose: 20 mg Documented by: Docusate Sodium (Docusate Sodium 100 Mg Capsule) 100 mg PO DAILY [facility] Last Admin: 11/17/21 09:55 Dose: 100 mg Documented by: Enoxaparin Sodium (Enoxaparin Sodium 40 Mg/0.4 Ml Syringe) 40 mg SUBCUT Q24H [facility] Last Admin: 11/16/21 18:08 Dose: 40 mg Documented by: Gabapentin (Gabapentin 300 Mg Capsule) 300 mg PO TID [facility] Last Admin: 11/17/21 09:55 Dose: 300 mg Documented by: Piperacillin Sod/Tazobactam (Sod 4.5 gm/ Sodium Chloride) 100 mls @ 200 mls/hr IV Q6H [facility] Last Infusion: 11/17/21 14:37 Dose: Infused Documented by: Vancomycin HCl 1,250 mg/ (Sodium Chloride) 250 mls @ 166.667 mls/hr IV Q12H [facility] Last Infusion: 11/17/21 03:50 Dose: Infused Documented by: Lorazepam (Lorazepam 0.5 Mg Tablet) 0.5 mg PO Q6H PRN PRN Reason: Anxiety Last Admin: 11/17/21 02:21 Dose: 0.5 mg Documented by: Multivitamins/Vitamin C (Multivitamin Tablet) 1 tab PO DAILY [facility] Last Admin: 11/17/21 09:56 Dose: Not Given Documented by: Non-Formulary Medication (Darifenacin) 1 tab PO DAILY [facility] Oxycodone HCl (Oxycodone Hcl Immed Release 5 Mg Tablet) 5 mg PO Q6H PRN PRN Reason: Pain, Moderate (Pain Scale 4-6 Last Admin: 11/17/21 09:55 Dose: 5 mg Documented by: Pharmacy Consult (Consult Rx Perform Med Rec) 1 each MISCELLANE ONCE PRN PRN Reason: Consult order Pharmacy Consult (Consult Rx Vancomycin Dosing) 1 each MISCELLANE DAILY PRN PRN Reason: Consult order Sertraline HCl (Sertraline Hcl 50 Mg Tablet) 150 mg PO DAILY [facility] Last Admin: 11/17/21 09:55 Dose: 150 mg Documented by: Sodium Chloride (0.9 % Sodium Chloride Flush 3 Ml Syringe) 3 ml IVFLUSH QSHIFT [facility] Last Admin: 11/17/21 07:30 Dose: 3 ml Documented by: Home Medications Medication Instructions Recorded Confirmed Last Taken Type baclofen 20 mg tablet 1 tab PO BID 11/16/21 11/16/21 11/16/21 History darifenacin 7.5 mg tablet,extended 1 tab PO DAILY 11/16/21 11/16/21 11/16/21 History release 24 hr docusate sodium 100 mg capsule 100 mg PO DAILY 11/16/21 11/16/21 11/16/21 History (Colace) gabapentin 300 mg capsule 1 cap PO TID 11/16/21 11/16/21 11/16/21 History multivitamin 1 tab PO DAILY 11/16/21 11/16/21 11/16/21 History sertraline 100 mg tablet 1.5 tab PO DAILY 11/16/21 11/16/21 11/16/21 History Physical Exam Vital Signs: Vital Signs: Last Vital Signs Temp 97.8 F 11/17/21 11:26 Pulse 87 11/17/21 11:26 Resp 16 11/17/21 01:46 BP 132/73 11/17/21 11:26 Pulse Ox 98 11/17/21 11:26 BMI result Body Mass Index 23.6 Skin: Other: large left ischial wound with necrotic gangrenous fat tissue debrided at bedside and probes deep to near bone but not directly exposed. murky fluid but no undrained pus . Results Results Labs: Short CBC 11/17/21 Range/Units 03:46 WBC 6.5 (4.8-10.8) X10*3/uL Hgb 7.8 L (12.0-16.0) g/dl Hct 27.5 L (37.0-47.0) % Plt Count 413 H (160-400) X10*3/uL BMP 11/17/21 03:46 Sodium 136 Potassium 3.9 Chloride 106 Carbon Dioxide 19 L BUN 5 L Creatinine 0.44 L Calcium 8.7 Urine 11/16/21 Range/Units 13:14 Urine Test NEGATIVE (NEGATIVE) Assessment and Plan (1) Stage IV decubitus ulcer: Status: Acute Plan stage 4 decubitus ulcer - debrided and cleaned plan -bid saline dressings and then get a wound vac in. she can eventually be followed in wound care with vna to do the vac dressing other days - tid. iv antibx for now - if no osteo wont need [facility] antibiotics nutrition consult - to increase protein intake for wound healing offload - pt is pretty good with shifting and moving and goal to stay off wound - this location is probably due to sitting pressure on ischial bones vs lying in bed. Quality Stroke Does the patient have a stroke diagnosis?: No VTE Prior VTE?: No VTE Risk Level:: Medical - moderate - high VTE Device Contraindication: Treatment Not Indicated VTE Drug Contraindication: N/A - Med Ordered Procedures Date of Service Date of Service: 11/17/21
[2021-11-17] MEDS: Ibuprofen 600 MG TABLET PO (16:02)
--- NOTE | 2021-11-17 16:52 | P.PNIM_ITS ---
Subjective Subjective Date of Service: 11/17/21 Interval History: No acute issues overnight remains afebrile Review of Systems Denies chest pain Denies shortness of breath Denies nausea vomiting diarrhea Denies fever chills Physical Exam Vital Signs: Vital Signs: Last Vital Signs Temp 97.8 F 11/17/21 11:26 Pulse 87 11/17/21 11:26 Resp 16 11/17/21 01:46 BP 132/73 11/17/21 11:26 Pulse Ox 98 11/17/21 11:26 BMI result Body Mass Index 23.6 Const: Other: Awake alert oriented x3 no acute distress Resp: Other: Clear to auscultation bilaterally no rales rhonchi or wheezes Cardio: Other: No S4; positive S1-S2; no S3 murmurs or gallops GI: Other: Soft nontender nondistended with normoactive bowel sounds Neuro: Other: C5 through C7 paraplegia; cranial nerves 2-12 grossly intact as tested. Cognition appropriate Extrem: Other: No edema bilaterally Objective Data Active Medications Baclofen (Baclofen 20 Mg Tablet) 20 mg PO BID [facility] Last Admin: 11/17/21 09:54 Dose: 20 mg Documented by: FRANCES Docusate Sodium (Docusate Sodium 100 Mg Capsule) 100 mg PO DAILY [facility] Last Admin: 11/17/21 09:55 Dose: 100 mg Documented by: FRANCES Enoxaparin Sodium (Enoxaparin Sodium 40 Mg/0.4 Ml Syringe) 40 mg SUBCUT Q24H [facility] Last Admin: 11/16/21 18:08 Dose: 40 mg Documented by: BARRY Gabapentin (Gabapentin 300 Mg Capsule) 300 mg PO TID [facility] Last Admin: 11/17/21 16:01 Dose: 300 mg Documented by: FRANCES Piperacillin Sod/Tazobactam (Sod 4.5 gm/ Sodium Chloride) 100 mls @ 200 mls/hr IV Q6H [facility] Last Infusion: 11/17/21 14:37 Dose: 0 mls/hr Documented by: FRANCES Vancomycin HCl 1,250 mg/ (Sodium Chloride) 250 mls @ 166.667 mls/hr IV Q12H [facility] Last Admin: 11/17/21 16:01 Dose: 166.67 mls/hr Documented by: FRANCES Lorazepam (Lorazepam 0.5 Mg Tablet) 0.5 mg PO Q6H PRN PRN Reason: Anxiety Last Admin: 11/17/21 02:21 Dose: 0.5 mg Documented by: CARLO Multivitamins/Vitamin C (Multivitamin Tablet) 1 tab PO DAILY [facility] Last Admin: 11/17/21 09:56 Dose: Not Given Documented by: FRANCES Non-Admin Reason: Patient Refused Non-Formulary Medication (Darifenacin) 1 tab PO DAILY [facility] Oxycodone HCl (Oxycodone Hcl Immed Release 5 Mg Tablet) 5 mg PO Q6H PRN PRN Reason: Pain, Moderate (Pain Scale 4-6 Last Admin: 11/17/21 09:55 Dose: 5 mg Documented by: FRANCES Pharmacy Consult (Consult Rx Perform Med Rec) 1 each MISCELLANE ONCE PRN PRN Reason: Consult order Pharmacy Consult (Consult Rx Vancomycin Dosing) 1 each MISCELLANE DAILY PRN PRN Reason: Consult order Sertraline HCl (Sertraline Hcl 50 Mg Tablet) 150 mg PO DAILY [facility] Last Admin: 11/17/21 09:55 Dose: 150 mg Documented by: FRANCES Sodium Chloride (0.9 % Sodium Chloride Flush 3 Ml Syringe) 3 ml IVFLUSH QSHIFT [facility] Last Admin: 11/17/21 16:05 Dose: 3 ml Documented by: FRANCES Labs CBC & Chem 7: 11/17/21 03:46 11/17/21 03:46 Labs: Laboratory Results - last 24 hr 11/17/21 11/17/21 03:46 03:46 MCV 66.7 L MCH 18.9 L MCHC 28.4 L RDW 17.6 H Plt Count 413 H MPV 9.4 Immature Gran % (Auto) 0.3 Neut % (Auto) 57.2 Lymph % (Auto) 26.5 [place] % (Auto) 12.5 H Eos % (Auto) 2.9 Baso % (Auto) 0.6 Lymph # (Auto) 1.7 [place] # (Auto) 0.8 Eos # (Auto) 0.2 Baso # (Auto) 0.0 Abs Immat Gran (auto) 0.02 Absolute Neuts (auto) 3.7 Absolute Nucleated RBC 0.000 Nucleated RBC % (auto) 0.0 Anion Gap 15 Estim Creat Clear Calc 182.9 Estimated GFR > 60 Random Glucose 79 Calcium 8.7 Microbiology Microbiology Results: Microbiology 11/16/21 12:58 Blood Culture - Preliminary Blood - Venous No growth after 24 hours. 11/16/21 12:46 Blood Culture - Preliminary Blood - Venous No growth after 24 hours. Assessment and Plan (1) Stage IV decubitus ulcer: Status: Acute (2) Abscess: Status: Acute Plan 36-year-old female with cervical fracture and subsequent paraplegia presents with stage IV gluteal decubitus on left buttocks. Was seen by PCP and advised admission. She denies fever chills. She states this painful and has been worsening. 1. Decubitus ulcer left gluteus -IV vancomycin and Zosyn -pain management with oxycodone -blood cultures negative thus far -debrided by surgery 2. Anxiety -continue sertraline -p.r.n. Ativan Full code Lovenox Anticipated least 2 midnights going forward for surgical debridement and IV antibiotic therapy Quality Stroke Does the patient have a stroke diagnosis?: No VTE Prior VTE?: No VTE Risk Level:: Medical - moderate - high VTE Device Contraindication: Treatment Not Indicated VTE Drug Contraindication: N/A - Med Ordered
[2021-11-17 17:16] VITALS: BP 127/88; PULSE 85; O2SAT 99
[2021-11-17 17:33] VITALS: BP 136/88; PULSE 84; RESP 18; TEMP 36.7; O2SAT 98
[2021-11-17] MEDS: Enoxaparin Sodium 40 MG/0.4 ML SYRINGE SUBCUT (18:08)
[2021-11-17 23:39] VITALS: BP 133/83; PULSE 90; RESP 18; TEMP 36.6; O2SAT 97
[2021-11-18 00:45] LABS: Vancomycin Trough 19.1 mcg/mL (10.0-20.0)
[2021-11-18] MEDS: Piperacillin Sodium/Tazobactam 4.5 GM in 0.9 % Sodium Chloride 100 ML IV ×4 (01:12→18:25)
--- NOTE | 2021-11-18 02:22 | PC.NURSE ---
Vanco trough 19.1 notified.ordered to hold 0200 dose.
[2021-11-18 03:27] VITALS: BP 119/76; PULSE 85; RESP 18; TEMP 36.3; O2SAT 98
--- NOTE | 2021-11-18 05:51 | PC.NURSE ---
Left buttock dsg changed for moderate amt of serosanguineous drainage.Wound packed with NS wet to dry dsg.pt tolerate well.Repositioned to right side.
[2021-11-18 07:37] VITALS: BP 124/80; PULSE 78; RESP 19; TEMP 37.3; O2SAT 98
--- NOTE | 2021-11-18 08:06 | HE.PHANOTE ---
vancomycin addendum: level after 3 doses was 19.1, 2 am dose was not given, restarted at 1 gram q12 hours, this morning at 8 am, will get another level after 3 more doses
--- NOTE | 2021-11-18 08:42 | MHC.CM.PN ---
CM met with Patient at bedside and addressed IMM with her, providing her with the original and placing a copy on the chart. Patient lives alone in a house and is independent most of the time (paraplegia)but does have a [employer] N[employer]SE that assist with dinner prep, showering and some overnights. Patient indicates that she may require a wound vac and/or LT IVABT, that she does not feel she could manage at home. Home with new [facility]NA VS STR is the goal and CM has initiated and will follow for dc planning. Patient has received [employer] vax X3 and PCP is Dr. Sherman Marquez.
[2021-11-18 08:44] LABS: Creatinine Clr Calc Pharmacy 110.2; Estimated Glomerular Filt Rate > 60
[2021-11-18] MEDS: Gabapentin 300 MG CAPSULE PO ×3 (09:31→21:43)
[2021-11-18] MEDS: Baclofen 20 MG TABLET PO ×2 (09:31→21:43)
[2021-11-18] MEDS: vancomycin HCL 1,000 MG in 0.9 % Sodium Chloride 250 ML 270 MG IV ×2 (09:31→19:49)
[2021-11-18] MEDS: Sertraline HCL 50 MG TABLET 150 MG PO (09:31)
[2021-11-18] MEDS: Docusate Sodium 100 MG CAPSULE PO (09:31)
[2021-11-18] MEDS: 0.9 % Sodium Chloride Flush 3 ML SYRINGE IVFLUSH ×3 (09:32→21:43)
[2021-11-18 11:22] VITALS: BP 125/83; PULSE 88; RESP 17; TEMP 37.6; O2SAT 98
--- NOTE | 2021-11-18 13:51 | MHC.CLN ---
NUTRITION PATIENT WITH STAGE IV PRESSURE INJURY TO LEFT BUTTOCKS. AWARE OF INCREASED PROTEIN NEEDS FOR WOUND HEALING. DISCUSSED WITH PATIENT AND ORDERING ENSURE MAX PROTEIN TID (450 KCAL, 90 G PROTEIN). REPORTS GOOD APPETITE AND INTAKE. FOLLOW FOR WOUND HEALING AND INTAKE.
[2021-11-18 13:56] VITALS: BMI 23.6
--- NOTE | 2021-11-18 14:59 | P.PNIM_ITS ---
Subjective Subjective Date of Service: 11/18/21 Interval History: No acute issues overnight remains afebrile Review of Systems Denies chest pain Denies shortness of breath Denies nausea vomiting diarrhea Denies fever chills Physical Exam Vital Signs: Vital Signs: Last Vital Signs Temp 99.7 F 11/18/21 11:22 Pulse 88 11/18/21 11:22 Resp 17 11/18/21 11:22 BP 125/83 11/18/21 11:22 Pulse Ox 98 11/18/21 11:22 BMI result Body Mass Index 23.6 Const: Other: Awake alert oriented x3 no acute distress Resp: Other: Clear to auscultation bilaterally no rales rhonchi or wheezes Cardio: Other: No S4; positive S1-S2; no S3 murmurs or gallops GI: Other: Soft nontender nondistended with normoactive bowel sounds Neuro: Other: C5 through C7 paraplegia; cranial nerves 2-12 grossly intact as tested. Cognition appropriate Extrem: Other: No edema bilaterally Objective Data Active Medications Baclofen (Baclofen 20 Mg Tablet) 20 mg PO BID [facility] Last Admin: 11/18/21 09:31 Dose: 20 mg Documented by: LEROY Docusate Sodium (Docusate Sodium 100 Mg Capsule) 100 mg PO DAILY [facility] Last Admin: 11/18/21 09:31 Dose: 100 mg Documented by: LEROY Enoxaparin Sodium (Enoxaparin Sodium 40 Mg/0.4 Ml Syringe) 40 mg SUBCUT Q24H [facility] Last Admin: 11/17/21 18:08 Dose: 40 mg Documented by: JUANCARLOS Gabapentin (Gabapentin 300 Mg Capsule) 300 mg PO TID [facility] Last Admin: 11/18/21 13:55 Dose: 300 mg Documented by: LEROY Piperacillin Sod/Tazobactam (Sod 4.5 gm/ Sodium Chloride) 100 mls @ 200 mls/hr IV Q6H [facility] Last Admin: 11/18/21 13:56 Dose: 200 mls/hr Documented by: LEROY Vancomycin HCl 1,000 mg/ (Sodium Chloride) 270 mls @ 270 mls/hr IV Q12H [facility] Last Infusion: 11/18/21 10:44 Dose: 0 mls/hr Documented by: LEROY Lorazepam (Lorazepam 0.5 Mg Tablet) 0.5 mg PO Q6H PRN PRN Reason: Anxiety Last Admin: 11/17/21 19:36 Dose: 0.5 mg Documented by: DELILAH Multivitamins/Vitamin C (Multivitamin Tablet) 1 tab PO DAILY [facility] Last Admin: 11/18/21 09:32 Dose: Not Given Documented by: LEROY Non-Admin Reason: Patient Refused Non-Formulary Medication (Darifenacin) 1 tab PO DAILY [facility] Oxycodone HCl (Oxycodone Hcl Immed Release 5 Mg Tablet) 5 mg PO Q6H PRN PRN Reason: Pain, Moderate (Pain Scale 4-6 Last Admin: 11/17/21 09:55 Dose: 5 mg Documented by: FRANCES Pharmacy Consult (Consult Rx Perform Med Rec) 1 each MISCELLANE ONCE PRN PRN Reason: Consult order Pharmacy Consult (Consult Rx Vancomycin Dosing) 1 each MISCELLANE DAILY PRN PRN Reason: Consult order Sertraline HCl (Sertraline Hcl 50 Mg Tablet) 150 mg PO DAILY [facility] Last Admin: 11/18/21 09:31 Dose: 150 mg Documented by: LEROY Sodium Chloride (0.9 % Sodium Chloride Flush 3 Ml Syringe) 3 ml IVFLUSH QSHIFT [facility] Last Admin: 11/18/21 13:56 Dose: 3 ml Documented by: LEROY Labs CBC & Chem 7: 11/17/21 03:46 11/18/21 08:20 Labs: Laboratory Results - last 24 hr 11/18/21 11/18/21 00:14 08:20 Estim Creat Clear Calc 110.2 Estimated GFR > 60 Vancomycin Trough 19.1 Microbiology Microbiology Results: Microbiology 11/16/21 12:46 Blood Culture - Preliminary Blood - Venous No growth after 48 hours. 11/16/21 12:58 Blood Culture - Preliminary Blood - Venous No growth after 24 hours. Assessment and Plan (1) Stage IV decubitus ulcer: Status: Acute (2) Abscess: Status: Acute (3) Anemia: Status: Acute Plan 36-year-old female with cervical fracture and subsequent paraplegia presents with stage IV gluteal decubitus on left buttocks. Was seen by PCP and advised admission. She denies fever chills. She states this painful and has been worsening. 1. Decubitus ulcer left gluteus -IV vancomycin and Zosyn -pain management with oxycodone -blood cultures negative thus far -question placement -ID consult 2. Anxiety -continue sertraline -p.r.n. Ativan Full code Lovenox Anticipated least 2 midnights going forward for surgical debridement and IV an tibiotic therapy Quality Stroke Does the patient have a stroke diagnosis?: No VTE Prior VTE?: No VTE Risk Level:: Medical - moderate - high VTE Device Contraindication: Treatment Not Indicated VTE Drug Contraindication: N/A - Med Ordered
[2021-11-18 15:45] VITALS: BP 125/81; PULSE 91; RESP 18; TEMP 37.1; O2SAT 98
[2021-11-18] MEDS: Enoxaparin Sodium 40 MG/0.4 ML SYRINGE SUBCUT (18:24)
[2021-11-18 19:41] VITALS: BP 128/88; PULSE 91; RESP 18; TEMP 37; O2SAT 97
[2021-11-18 23:22] VITALS: BP 122/85; PULSE 90; RESP 18; TEMP 37; O2SAT 97
[2021-11-19] MEDS: Piperacillin Sodium/Tazobactam 4.5 GM in 0.9 % Sodium Chloride 100 ML IV ×4 (00:43→18:31)
[2021-11-19 04:00] VITALS: BP 124/90; PULSE 83; RESP 18; TEMP 37.2; O2SAT 97
[2021-11-19 07:33] VITALS: BP 115/65; PULSE 80; RESP 20; TEMP 36.4; O2SAT 100
[2021-11-19] MEDS: vancomycin HCL 1,000 MG in 0.9 % Sodium Chloride 250 ML 270 MG IV (09:03)
[2021-11-19] MEDS: 0.9 % Sodium Chloride Flush 3 ML SYRINGE IVFLUSH ×3 (09:04→20:41)
[2021-11-19] MEDS: Baclofen 20 MG TABLET PO ×2 (09:14→20:40)
[2021-11-19] MEDS: Docusate Sodium 100 MG CAPSULE PO (09:16)
[2021-11-19] MEDS: Gabapentin 300 MG CAPSULE PO ×3 (09:16→20:40)
[2021-11-19] MEDS: Sertraline HCL 50 MG TABLET 150 MG PO (09:16)
[2021-11-19] MEDS: Multivitamin TABLET 1 TAB PO (09:23)
--- NOTE | 2021-11-19 10:10 | HE.PHANOTE ---
Addendum entered by Toan Seals [facility] 11/19/21 19:19: Vanco trough 25.7. Vanco held and d/c'd to prevent 8pm dose from being given. New random level added for 11/20/2021@0600. Original Note: Vancomycin Dosing Addendum Vancomycin trough and Cr ordered for 1800. Continue with current regimen for now.
[2021-11-19 11:06] VITALS: BP 137/67; PULSE 80; RESP 20; TEMP 37.3; O2SAT 98
--- NOTE | 2021-11-19 12:42 | P.PNGS_ITS ---
Subjective Subjective Date of Service: 11/19/21 Interval history: denies new complaints denies pain on ulcer says she feels well Physical Exam Vital Signs: Vital Signs: Last Vital Signs Temp 99.2 F 11/19/21 11:06 Pulse 80 11/19/21 11:06 Resp 20 11/19/21 11:06 BP 137/67 11/19/21 11:06 Pulse Ox 98 11/19/21 11:06 BMI result Body Mass Index 23.6 Const: General: comfortable and no acute distress Resp: Effort & Inspection: normal respiratory effort Cardio: Rate: regular rate GI: Palpation (GI): Soft to palpation Back/Spine/Pelvis: Other: large left gluteal ulcer, [id number] cm, extending deep into muscular layer abotu 3.5 cm deep, thick fibrinous tissue in base otherwise rest of wound appears to have good granulation tisse Objective Data Active Medications Baclofen (Baclofen 20 Mg Tablet) 20 mg PO BID [facility] Last Admin: 11/19/21 09:14 Dose: 20 mg Documented by: TWAN Docusate Sodium (Docusate Sodium 100 Mg Capsule) 100 mg PO DAILY [facility] Last Admin: 11/19/21 09:16 Dose: 100 mg Documented by: TWAN Enoxaparin Sodium (Enoxaparin Sodium 40 Mg/0.4 Ml Syringe) 40 mg SUBCUT Q24H [facility] Last Admin: 11/18/21 18:24 Dose: 40 mg Documented by: LEROY Gabapentin (Gabapentin 300 Mg Capsule) 300 mg PO TID [facility] Last Admin: 11/19/21 09:16 Dose: 300 mg Documented by: TWAN Piperacillin Sod/Tazobactam (Sod 4.5 gm/ Sodium Chloride) 100 mls @ 200 mls/hr IV Q6H [facility] Last Infusion: 11/19/21 07:18 Dose: 0 mls/hr Documented by: LEROY Vancomycin HCl 1,000 mg/ (Sodium Chloride) 270 mls @ 270 mls/hr IV Q12H [facility] Last Infusion: 11/19/21 10:45 Dose: 0 mls/hr Documented by: LEROY Lorazepam (Lorazepam 0.5 Mg Tablet) 0.5 mg PO Q6H PRN PRN Reason: Anxiety Last Admin: 11/17/21 19:36 Dose: 0.5 mg Documented by: DELILAH Multivitamins/Vitamin C (Multivitamin Tablet) 1 tab PO DAILY [facility] Last Admin: 11/19/21 09:23 Dose: 1 tab Documented by: TWAN Non-Formulary Medication (Darifenacin) 1 tab PO DAILY [facility] Oxycodone HCl (Oxycodone Hcl Immed Release 5 Mg Tablet) 5 mg PO Q6H PRN PRN Reason: Pain, Moderate (Pain Scale 4-6 Last Admin: 11/17/21 09:55 Dose: 5 mg Documented by: FRANCES Pharmacy Consult (Consult Rx Perform Med Rec) 1 each MISCELLANE ONCE PRN PRN Reason: Consult order Pharmacy Consult (Consult Rx Vancomycin Dosing) 1 each MISCELLANE DAILY PRN PRN Reason: Consult order Sertraline HCl (Sertraline Hcl 50 Mg Tablet) 150 mg PO DAILY [facility] Last Admin: 11/19/21 09:16 Dose: 150 mg Documented by: TWAN Sodium Chloride (0.9 % Sodium Chloride Flush 3 Ml Syringe) 3 ml IVFLUSH QSHIFT [facility] Last Admin: 11/19/21 09:04 Dose: 3 ml Documented by: TWAN Labs CBC & Chem 7: 11/17/21 03:46 11/18/21 08:20 Microbiology Microbiology Results: Microbiology 11/16/21 12:58 Blood Culture - Preliminary Blood - Venous No growth after 48 hours. 11/16/21 12:46 Blood Culture - Preliminary Blood - Venous No growth after 48 hours. Procedures Date of Service Date of Service: 11/19/21 Progress Note: A&P Assessment and plan (1) Stage IV decubitus ulcer: Status: Acute Assessment and Plan: I did sharp excisional debridement of the ulcer at bedside she was in right laeral decub position sharp debridement done using scissors to remove nonviable tissue at base wet to dry dressing applied may be ready for woundvac tomorrow will reevaluate with Niyah Dalal of Wound Care tomorrow Fall Risk Details Current Medications: Current Medications Baclofen (Baclofen 20 Mg Tablet) 20 mg PO BID [facility] Last Admin: 11/19/21 09:14 Dose: 20 mg Documented by: Docusate Sodium (Docusate Sodium 100 Mg Capsule) 100 mg PO DAILY [facility] Last Admin: 11/19/21 09:16 Dose: 100 mg Documented by: Enoxaparin Sodium (Enoxaparin Sodium 40 Mg/0.4 Ml Syringe) 40 mg SUBCUT Q24H [facility] Last Admin: 11/18/21 18:24 Dose: 40 mg Documented by: Gabapentin (Gabapentin 300 Mg Capsule) 300 mg PO TID [facility] Last Admin: 11/19/21 09:16 Dose: 300 mg Documented by: Piperacillin Sod/Tazobactam (Sod 4.5 gm/ Sodium Chloride) 100 mls @ 200 mls/hr IV Q6H [facility] Last Infusion: 11/19/21 07:18 Dose: Infused Documented by: Vancomycin HCl 1,000 mg/ (Sodium Chloride) 270 mls @ 270 mls/hr IV Q12H [facility] Last Infusion: 11/19/21 10:45 Dose: Infused Documented by: Lorazepam (Lorazepam 0.5 Mg Tablet) 0.5 mg PO Q6H PRN PRN Reason: Anxiety Last Admin: 11/17/21 19:36 Dose: 0.5 mg Documented by: Multivitamins/Vitamin C (Multivitamin Tablet) 1 tab PO DAILY [facility] Last Admin: 11/19/21 09:23 Dose: 1 tab Documented by: Non-Formulary Medication (Darifenacin) 1 tab PO DAILY [facility] Oxycodone HCl (Oxycodone Hcl Immed Release 5 Mg Tablet) 5 mg PO Q6H PRN PRN Reason: Pain, Moderate (Pain Scale 4-6 Last Admin: 11/17/21 09:55 Dose: 5 mg Documented by: Pharmacy Consult (Consult Rx Perform Med Rec) 1 each MISCELLANE ONCE PRN PRN Reason: Consult order Pharmacy Consult (Consult Rx Vancomycin Dosing) 1 each MISCELLANE DAILY PRN PRN Reason: Consult order Sertraline HCl (Sertraline Hcl 50 Mg Tablet) 150 mg PO DAILY [facility] Last Admin: 11/19/21 09:16 Dose: 150 mg Documented by: Sodium Chloride (0.9 % Sodium Chloride Flush 3 Ml Syringe) 3 ml IVFLUSH QSHIFT [facility] Last Admin: 11/19/21 09:04 Dose: 3 ml Documented by: Time Spent With Patient Time: Total time spent is greater than 50% in coordination of care (as documented) at patient's floor/unit and/or counseling patient: Quality Stroke Does the patient have a stroke diagnosis?: No VTE Prior VTE?: No VTE Risk Level:: Medical - moderate - high VTE Device Contraindication: Treatment Not Indicated VTE Drug Contraindication: N/A - Med Ordered
[2021-11-19] MEDS: Ibuprofen 600 MG TABLET PO (13:46)
--- NOTE | 2021-11-19 14:30 | MHC.CM.PN ---
Goal for dc has been SNF for wound care with wound vac (to be applied 11/20/21). MD feels that Patient may be able to go home with wound vac and VNA for weekly wound vac changes. CM will continue to follow.
--- NOTE | 2021-11-19 14:58 | HO.PM.IMPN ---
Subjective Subjective Date of Service: 11/19/21 Interval History: No acute issues overnight remains afebrile Review of Systems Denies chest pain Denies shortness of breath Denies nausea vomiting diarrhea Denies fever chills Physical Exam Vital Signs: Vital Signs: Last Vital Signs Temp 99.2 F 11/19/21 11:06 Pulse 80 11/19/21 11:06 Resp 20 11/19/21 11:06 BP 137/67 11/19/21 11:06 Pulse Ox 98 11/19/21 11:06 BMI result Body Mass Index 23.6 Const: Other: Awake alert oriented x3 no acute distress Resp: Other: Clear to auscultation bilaterally no rales rhonchi or wheezes Cardio: Other: No S4; positive S1-S2; no S3 murmurs or gallops GI: Other: Soft nontender nondistended with normoactive bowel sounds Neuro: Other: C5 through C7 paraplegia; cranial nerves 2-12 grossly intact as tested. Cognition appropriate Extrem: Other: No edema bilaterally Objective Data Active Medications Baclofen (Baclofen 20 Mg Tablet) 20 mg PO BID [facility] Last Admin: 11/19/21 09:14 Dose: 20 mg Documented by: TWAN Docusate Sodium (Docusate Sodium 100 Mg Capsule) 100 mg PO DAILY [facility] Last Admin: 11/19/21 09:16 Dose: 100 mg Documented by: TWAN Enoxaparin Sodium (Enoxaparin Sodium 40 Mg/0.4 Ml Syringe) 40 mg SUBCUT Q24H [facility] Last Admin: 11/18/21 18:24 Dose: 40 mg Documented by: LEROY Gabapentin (Gabapentin 300 Mg Capsule) 300 mg PO TID [facility] Last Admin: 11/19/21 13:46 Dose: 300 mg Documented by: LEROY Piperacillin Sod/Tazobactam (Sod 4.5 gm/ Sodium Chloride) 100 mls @ 200 mls/hr IV Q6H [facility] Last Infusion: 11/19/21 14:30 Dose: 0 mls/hr Documented by: LEROY Vancomycin HCl 1,000 mg/ (Sodium Chloride) 270 mls @ 270 mls/hr IV Q12H [facility] Last Infusion: 11/19/21 10:45 Dose: 0 mls/hr Documented by: LEROY Ibuprofen (Ibuprofen 600 Mg Tablet) 600 mg PO Q6H PRN PRN Reason: Pain, Moderate (Pain Scale 4-6 Last Admin: 11/19/21 13:46 Dose: 600 mg Documented by: LEROY Lorazepam (Lorazepam 0.5 Mg Tablet) 0.5 mg PO Q6H PRN PRN Reason: Anxiety Last Admin: 11/17/21 19:36 Dose: 0.5 mg Documented by: DELILAH Multivitamins/Vitamin C (Multivitamin Tablet) 1 tab PO DAILY [facility] Last Admin: 11/19/21 09:23 Dose: 1 tab Documented by: TWAN Non-Formulary Medication (Darifenacin) 1 tab PO DAILY [facility] Oxycodone HCl (Oxycodone Hcl Immed Release 5 Mg Tablet) 5 mg PO Q6H PRN PRN Reason: Pain, Moderate (Pain Scale 4-6 Last Admin: 11/17/21 09:55 Dose: 5 mg Documented by: FRANCES Pharmacy Consult (Consult Rx Perform Med Rec) 1 each MISCELLANE ONCE PRN PRN Reason: Consult order Pharmacy Consult (Consult Rx Vancomycin Dosing) 1 each MISCELLANE DAILY PRN PRN Reason: Consult order Sertraline HCl (Sertraline Hcl 50 Mg Tablet) 150 mg PO DAILY [facility] Last Admin: 11/19/21 09:16 Dose: 150 mg Documented by: TWAN Sodium Chloride (0.9 % Sodium Chloride Flush 3 Ml Syringe) 3 ml IVFLUSH QSHIFT [facility] Last Admin: 11/19/21 13:47 Dose: 3 ml Documented by: LEROY Labs CBC & Chem 7: 11/17/21 03:46 11/18/21 08:20 Microbiology Microbiology Results: Microbiology 11/16/21 12:58 Blood Culture - Preliminary Blood - Venous No growth after 48 hours. 11/16/21 12:46 Blood Culture - Preliminary Blood - Venous No growth after 48 hours. Assessment and Plan (1) Stage IV decubitus ulcer: Status: Acute (2) Anxiety: Status: Acute Plan 36-year-old female with cervical fracture and subsequent paraplegia presents with stage IV gluteal decubitus on left buttocks. Was seen by PCP and advised admission. She denies fever chills. She states this painful and has been worsening. 1. Decubitus ulcer left gluteus -IV vancomycin(3)/Zosyn(3) -pain management with oxycodone -blood cultures negative thus far -Likely wound vac in am -wishes home with services 2. Anxiety -continue sertraline -p.r.n. Ativan Full code Lovenox Anticipated least 2 midnights going forward for surgical debridement and IV antibiotic therapy and wound vac application Quality Stroke Does the patient have a stroke diagnosis?: No VTE Prior VTE?: No VTE Risk Level:: Medical - moderate - high VTE Device Contraindication: Treatment Not Indicated VTE Drug Contraindication: N/A - Med Ordered
[2021-11-19 15:23] VITALS: BP 136/77; PULSE 88; RESP 17; TEMP 36.7; O2SAT 98
[2021-11-19] MEDS: Enoxaparin Sodium 40 MG/0.4 ML SYRINGE SUBCUT (18:31)
[2021-11-19] MEDS: ondansetron HCL 4 MG/2 ML VIAL IVPUSH (18:31)
[2021-11-19 18:35] LABS: Creatinine Clr Calc Pharmacy 95.8; Estimated Glomerular Filt Rate > 60
[2021-11-19 19:01] LABS: Vancomycin Trough 25.7 mcg/mL (10.0-20.0)
[2021-11-19 19:42] VITALS: BP 138/86; PULSE 82; RESP 18; TEMP 37.2; O2SAT 97
[2021-11-19 23:50] VITALS: BP 132/89; PULSE 77; RESP 18; TEMP 36.9; O2SAT 98
[2021-11-20] MEDS: Piperacillin Sodium/Tazobactam 4.5 GM in 0.9 % Sodium Chloride 100 ML IV ×3 (02:32→13:38)
[2021-11-20 03:20] VITALS: BP 118/79; PULSE 75; RESP 18; TEMP 36.9; O2SAT 98
[2021-11-20 06:00] LABS: MANUAL DIFF FLAG NO
[2021-11-20 06:06] LABS: Basophils Percent Auto 0.5 % (0-2); Eosinophils Absolute Auto 0.3 X10*3/uL (0.0-0.4); Hematocrit 27.1 % (37.0-47.0); Hemoglobin 7.5 g/dl (12.0-16.0); Imm Gran Abs Auto 0.02 X10*3/uL (0.00-0.03); Imm Gran Pct Auto 0.3 % (0.0-0.4); Lymphocytes Absolute Auto 1.1 X10*3/uL (1.2-4.9); Mean Corpuscular HGB Conc 27.7 g/dl (31.0-35.0); Mean Corpuscular Hemoglobin 18.7 pg (27.0-33.0); Mean Corpuscular Volume 67.4 fL (80.0-98.0); Mean Platelet Volume 9.3 fL (9.4-12.3); Monocytes Absolute Auto 0.6 X10*3/uL (0.1-1.2); Monocytes Percent Auto 10.2 % (2-11); Neutrophils Absolute Auto 4.1 x10*3/uL (2.0-8.3); Platelet Count 356 X10*3/uL (160-400); Red Blood Count 4.02 X10*6/uL (4.20-5.50); Red Cell Distribution Width 18.3 % (11.0-16.0); White Blood Count 6.2 X10*3/uL (4.8-10.8)
[2021-11-20 06:28] LABS: Alanine Aminotransferase 227 U/L (0-31); Alkaline Phosphatase 243 U/L (39-117); Anion Gap 13 (12-20); Aspartate Amino Transferase 296 U/L (5-31); Bilirubin Total 0.3 mg/dL (0.0-1.0); Blood Urea Nitrogen 8 mg/dL (9-16); Calcium 8.9 mg/dL (8.4-10.2); Carbon Dioxide 21 mmol/L (22-29); Chloride 113 mmol/L (96-108); Creatinine Clr Calc Pharmacy 101.8; Estimated Glomerular Filt Rate > 60; Glucose Fasting 97 mg/dL (60-99); Potassium 3.2 mmol/L (3.3-5.1); Sodium 144 mmol/L (135-145); Total Protein 5.5 g/dL (6.5-8.0)
[2021-11-20 07:16] VITALS: BP 115/80; PULSE 73; RESP 16; TEMP 36.7; O2SAT 99
--- NOTE | 2021-11-20 08:52 | HE.PHANOTE ---
Vancomycin Dosing Addendum Vancomycin Course: 11/16 1500 x 1 dose Cr:0.44 11/17 1250 q12h Cr 0.44 11/18 decreased to 1000 q12h even with Jump in SCR to 0.73 and trough 19.1 11/19 follow up trough ordered as well as SCR in evening. dose was already given in AM . follow up trough 25.7 and cr 0.84 and vancomycin dc'ed 11/[address] Gunn to see if she wanted Vancomycin continued and she said the patient will transistion to PO later today and will discuss with surgery.
[2021-11-20] MEDS: Docusate Sodium 100 MG CAPSULE PO (09:32)
[2021-11-20] MEDS: Baclofen 20 MG TABLET PO ×2 (09:32→20:20)
[2021-11-20] MEDS: Gabapentin 300 MG CAPSULE PO ×3 (09:32→20:20)
[2021-11-20] MEDS: Sertraline HCL 50 MG TABLET 150 MG PO (09:32)
[2021-11-20] MEDS: Multivitamin TABLET 1 TAB PO (09:32)
[2021-11-20 11:38] VITALS: BP 105/66; PULSE 80; RESP 17; TEMP 36.6; O2SAT 96
--- NOTE | 2021-11-20 12:29 | MHC.CLN ---
F/U PATIENT TAKING AND LIKES ENSURE MAX PROTEIN. TID PROVIDES 450 KCAL, 90 G PROTEIN. PATIENT WITH STAGE IV PRESSURE INJURY TO LEFT BUTTOCKS. AWARE OF INCREASED PROTEIN NEEDS FOR WOUND HEALING. CONTINUES WITH GOOD APPETITE AND INTAKE. FOLLOW FOR WOUND HEALING AND INTAKE.
--- NOTE | 2021-11-20 12:54 | MHC.CM.PN ---
Per ROUNDS discussion, Wound vac is being placed today. Home with services VS SNF with vac is the goal for dc and CM will continue to follow .CM has been inn touch with [facility]) for vac.
--- NOTE | 2021-11-20 13:23 | PM.PNGS ---
Subjective Subjective Date of Service: 11/20/21 Interval history: Denies any complaints Feels well Physical Exam Vital Signs: Vital Signs: Last Vital Signs Temp 97.8 F 11/20/21 11:38 Pulse 80 11/20/21 11:38 Resp 17 11/20/21 11:38 BP 105/66 11/20/21 11:38 Pulse Ox 96 11/20/21 11:38 BMI result Body Mass Index 23.6 Const: General: comfortable and no acute distress Resp: Effort & Inspection: normal respiratory effort GI: Palpation (GI): Soft to palpation and nontender Back/Spine/Pelvis: Other: Large this ulcer, left buttock, deep, with good granulation tissue now, debridement was done yesterday at bedside, no pus, no cellulitis Objective Data Active Medications Baclofen (Baclofen 20 Mg Tablet) 20 mg PO BID [facility] Last Admin: 11/20/21 09:32 Dose: 20 mg Documented by: TWAN Docusate Sodium (Docusate Sodium 100 Mg Capsule) 100 mg PO DAILY [facility] Last Admin: 11/20/21 09:32 Dose: 100 mg Documented by: TWAN Enoxaparin Sodium (Enoxaparin Sodium 40 Mg/0.4 Ml Syringe) 40 mg SUBCUT Q24H [facility] Last Admin: 11/19/21 18:31 Dose: 40 mg Documented by: LEROY Gabapentin (Gabapentin 300 Mg Capsule) 300 mg PO TID [facility] Last Admin: 11/20/21 09:32 Dose: 300 mg Documented by: TWAN Piperacillin Sod/Tazobactam (Sod 4.5 gm/ Sodium Chloride) 100 mls @ 200 mls/hr IV Q6H [facility] Last Infusion: 11/20/21 07:00 Dose: 0 mls/hr Documented by: DOUGLAS Ibuprofen (Ibuprofen 600 Mg Tablet) 600 mg PO Q6H PRN PRN Reason: Pain, Moderate (Pain Scale 4-6 Last Admin: 11/19/21 13:46 Dose: 600 mg Documented by: LEROY Lorazepam (Lorazepam 0.5 Mg Tablet) 0.5 mg PO Q6H PRN PRN Reason: Anxiety Last Admin: 11/17/21 19:36 Dose: 0.5 mg Documented by: DELILAH Multivitamins/Vitamin C (Multivitamin Tablet) 1 tab PO DAILY [facility] Last Admin: 11/20/21 09:32 Dose: 1 tab Documented by: TWAN Non-Formulary Medication (Darifenacin) 1 tab PO DAILY [facility] Ondansetron HCl (Ondansetron Hcl 4 Mg/2 Ml Vial) 4 mg IVPUSH Q8H PRN PRN Reason: Nausea Last Admin: 11/19/21 18:31 Dose: 4 mg Documented by: LEROY Oxycodone HCl (Oxycodone Hcl Immed Release 5 Mg Tablet) 5 mg PO Q6H PRN PRN Reason: Pain, Moderate (Pain Scale 4-6 Last Admin: 11/17/21 09:55 Dose: 5 mg Documented by: FRANCES Pharmacy Consult (Consult Rx Perform Med Rec) 1 each MISCELLANE ONCE PRN PRN Reason: Consult order Pharmacy Consult (Consult Rx Vancomycin Dosing) 1 each MISCELLANE DAILY PRN PRN Reason: Consult order Sertraline HCl (Sertraline Hcl 50 Mg Tablet) 150 mg PO DAILY [facility] Last Admin: 11/20/21 09:32 Dose: 150 mg Documented by: TWAN Sodium Chloride (0.9 % Sodium Chloride Flush 3 Ml Syringe) 3 ml IVFLUSH QSHIFT [facility] Last Admin: 11/20/21 09:10 Dose: Not Given Documented by: LEROY Non-Admin Reason: flushed with med earlier Labs CBC & Chem 7: 11/20/21 05:48 11/20/21 05:48 Labs: Laboratory Results - last 24 hr 11/19/21 11/19/21 11/20/21 17:59 17:59 05:48 MCV MCH MCHC RDW Plt Count MPV Immature Gran % (Auto) Neut % (Auto) Lymph % (Auto) [place] % (Auto) Eos % (Auto) Baso % (Auto) Lymph # (Auto) [place] # (Auto) Eos # (Auto) Baso # (Auto) Abs Immat Gran (auto) Absolute Neuts (auto) Absolute Nucleated RBC Nucleated RBC % (auto) Anion Gap Estim Creat Clear Calc 95.8 Estimated GFR > 60 Fasting Glucose Calcium Total Bilirubin AST ALT Alkaline Phosphatase Total Protein Albumin Vancomycin Trough 25.7 H* Random Vancomycin 16.0 11/20/21 11/20/21 05:48 05:48 MCV 67.4 L MCH 18.7 L MCHC 27.7 L RDW 18.3 H Plt Count 356 MPV 9.3 L Immature Gran % (Auto) 0.3 Neut % (Auto) 67.0 Lymph % (Auto) 18.0 L [place] % (Auto) 10.2 Eos % (Auto) 4.0 Baso % (Auto) 0.5 Lymph # (Auto) 1.1 L [place] # (Auto) 0.6 Eos # (Auto) 0.3 Baso # (Auto) 0.0 Abs Immat Gran (auto) 0.02 Absolute Neuts (auto) 4.1 Absolute Nucleated RBC 0.000 Nucleated RBC % (auto) 0.0 Anion Gap 13 Estim Creat Clear Calc 101.8 Estimated GFR > 60 Fasting Glucose 97 Calcium 8.9 Total Bilirubin 0.3 AST 296 H ALT 227 H Alkaline Phosphatase 243 H D Total Protein 5.5 L Albumin 3.0 L Vancomycin Trough Random Vancomycin Procedures Date of Service Date of Service: 11/20/21 Progress Note: A&P Assessment and plan (1) Stage IV decubitus ulcer: Status: Acute Assessment and Plan: I changed her dressings and applied to dry packing The ulcer looks clean with good granulation tissue She may be ready for wound VAC Plan to apply the wound VAC tomorrow She understands the plan Fall Risk Details Current Medications: Current Medications Baclofen (Baclofen 20 Mg Tablet) 20 mg PO BID [facility] Last Admin: 11/20/21 09:32 Dose: 20 mg Documented by: Docusate Sodium (Docusate Sodium 100 Mg Capsule) 100 mg PO DAILY [facility] Last Admin: 11/20/21 09:32 Dose: 100 mg Documented by: Enoxaparin Sodium (Enoxaparin Sodium 40 Mg/0.4 Ml Syringe) 40 mg SUBCUT Q24H [facility] Last Admin: 11/19/21 18:31 Dose: 40 mg Documented by: Gabapentin (Gabapentin 300 Mg Capsule) 300 mg PO TID [facility] Last Admin: 11/20/21 09:32 Dose: 300 mg Documented by: Piperacillin Sod/Tazobactam (Sod 4.5 gm/ Sodium Chloride) 100 mls @ 200 mls/hr IV Q6H [facility] Last Infusion: 11/20/21 07:00 Dose: Infused Documented by: Ibuprofen (Ibuprofen 600 Mg Tablet) 600 mg PO Q6H PRN PRN Reason: Pain, Moderate (Pain Scale 4-6 Last Admin: 11/19/21 13:46 Dose: 600 mg Documented by: Lorazepam (Lorazepam 0.5 Mg Tablet) 0.5 mg PO Q6H PRN PRN Reason: Anxiety Last Admin: 11/17/21 19:36 Dose: 0.5 mg Documented by: Multivitamins/Vitamin C (Multivitamin Tablet) 1 tab PO DAILY [facility] Last Admin: 11/20/21 09:32 Dose: 1 tab Documented by: Non-Formulary Medication (Darifenacin) 1 tab PO DAILY [facility] Ondansetron HCl (Ondansetron Hcl 4 Mg/2 Ml Vial) 4 mg IVPUSH Q8H PRN PRN Reason: Nausea Last Admin: 11/19/21 18:31 Dose: 4 mg Documented by: Oxycodone HCl (Oxycodone Hcl Immed Release 5 Mg Tablet) 5 mg PO Q6H PRN PRN Reason: Pain, Moderate (Pain Scale 4-6 Last Admin: 11/17/21 09:55 Dose: 5 mg Documented by: Pharmacy Consult (Consult Rx Perform Med Rec) 1 each MISCELLANE ONCE PRN PRN Reason: Consult order Pharmacy Consult (Consult Rx Vancomycin Dosing) 1 each MISCELLANE DAILY PRN PRN Reason: Consult order Sertraline HCl (Sertraline Hcl 50 Mg Tablet) 150 mg PO DAILY [facility] Last Admin: 11/20/21 09:32 Dose: 150 mg Documented by: Sodium Chloride (0.9 % Sodium Chloride Flush 3 Ml Syringe) 3 ml IVFLUSH QSHIFT [facility] Last Admin: 11/20/21 09:10 Dose: Not Given Documented by: Time Spent With Patient Time: Total time spent is greater than 50% in coordination of care (as documented) at patient's floor/unit and/or counseling patient: Quality Stroke Does the patient have a stroke diagnosis?: No VTE Prior VTE?: No VTE Risk Level:: Medical - moderate - high VTE Device Contraindication: Treatment Not Indicated VTE Drug Contraindication: N/A - Med Ordered
[2021-11-20] MEDS: Ibuprofen 600 MG TABLET PO (13:38)
[2021-11-20] MEDS: 0.9 % Sodium Chloride Flush 3 ML SYRINGE IVFLUSH ×2 (13:39→20:21)
--- NOTE | 2021-11-20 14:16 | HO.PM.IMPN ---
Subjective Subjective Date of Service: 11/20/21 Interval History: denies left buttock pain while lying on the right side but complain of pain when she rest on left buttock, denies fever chills no other issues requesting for oxycodone upon discharge, denies nausea vomiting, use suppository every 3 days at home. Review of Systems [employer] no headache no dizziness CVS no chest pain, no palpitation GI no nausea no vomiting, no abdominal. Review of Systems: Yes all other systems are reviewed and are negative Physical Exam Vital Signs: Vital Signs: Last Vital Signs Temp 97.8 F 11/20/21 11:38 Pulse 80 11/20/21 11:38 Resp 17 11/20/21 11:38 BP 105/66 11/20/21 11:38 Pulse Ox 96 11/20/21 11:38 BMI result Body Mass Index 23.6 Const: Other: General resting comfortably ,no acute distress. Neck supple CVS regular rate rhythm, Respiratory lungs clear to auscultation, no respiratory distress, no wheeze, no rhonchi. Gastrointestinal abdomen soft, nontender, bowel sounds audible Extremities no edema. Neuro C5 through C7 paraplegia, speech clear. Skin large left buttock ulcer deep with good granulation tissue, no drainage no surrounding redness. Objective Data Active Medications Baclofen (Baclofen 20 Mg Tablet) 20 mg PO BID [facility] Last Admin: 11/20/21 09:32 Dose: 20 mg Documented by: TWAN Docusate Sodium (Docusate Sodium 100 Mg Capsule) 100 mg PO DAILY [facility] Last Admin: 11/20/21 09:32 Dose: 100 mg Documented by: TWAN Enoxaparin Sodium (Enoxaparin Sodium 40 Mg/0.4 Ml Syringe) 40 mg SUBCUT Q24H [facility] Last Admin: 11/19/21 18:31 Dose: 40 mg Documented by: LEROY Gabapentin (Gabapentin 300 Mg Capsule) 300 mg PO TID [facility] Last Admin: 11/20/21 13:38 Dose: 300 mg Documented by: LEROY Piperacillin Sod/Tazobactam (Sod 4.5 gm/ Sodium Chloride) 100 mls @ 200 mls/hr IV Q6H [facility] Last Admin: 11/20/21 13:38 Dose: 200 mls/hr Documented by: LEROY Ibuprofen (Ibuprofen 600 Mg Tablet) 600 mg PO Q6H PRN PRN Reason: Pain, Moderate (Pain Scale 4-6 Last Admin: 11/20/21 13:38 Dose: 600 mg Documented by: LEROY Lorazepam (Lorazepam 0.5 Mg Tablet) 0.5 mg PO Q6H PRN PRN Reason: Anxiety Last Admin: 11/17/21 19:36 Dose: 0.5 mg Documented by: DELILAH Multivitamins/Vitamin C (Multivitamin Tablet) 1 tab PO DAILY [facility] Last Admin: 11/20/21 09:32 Dose: 1 tab Documented by: TWAN Non-Formulary Medication (Darifenacin) 1 tab PO DAILY [facility] Ondansetron HCl (Ondansetron Hcl 4 Mg/2 Ml Vial) 4 mg IVPUSH Q8H PRN PRN Reason: Nausea Last Admin: 11/19/21 18:31 Dose: 4 mg Documented by: LEROY Oxycodone HCl (Oxycodone Hcl Immed Release 5 Mg Tablet) 5 mg PO Q6H PRN PRN Reason: Pain, Moderate (Pain Scale 4-6 Last Admin: 11/17/21 09:55 Dose: 5 mg Documented by: FRANCES Pharmacy Consult (Consult Rx Perform Med Rec) 1 each MISCELLANE ONCE PRN PRN Reason: Consult order Pharmacy Consult (Consult Rx Vancomycin Dosing) 1 each MISCELLANE DAILY PRN PRN Reason: Consult order Sertraline HCl (Sertraline Hcl 50 Mg Tablet) 150 mg PO DAILY [facility] Last Admin: 11/20/21 09:32 Dose: 150 mg Documented by: TWAN Sodium Chloride (0.9 % Sodium Chloride Flush 3 Ml Syringe) 3 ml IVFLUSH QSHIFT [facility] Last Admin: 11/20/21 13:39 Dose: 3 ml Documented by: LEROY Labs CBC & Chem 7: 11/20/21 05:48 11/20/21 05:48 Labs: Laboratory Results - last 24 hr 11/19/21 11/19/21 11/20/21 17:59 17:59 05:48 MCV MCH MCHC RDW Plt Count MPV Immature Gran % (Auto) Neut % (Auto) Lymph % (Auto) [place] % (Auto) Eos % (Auto) Baso % (Auto) Lymph # (Auto) [place] # (Auto) Eos # (Auto) Baso # (Auto) Abs Immat Gran (auto) Absolute Neuts (auto) Absolute Nucleated RBC Nucleated RBC % (auto) Anion Gap Estim Creat Clear Calc 95.8 Estimated GFR > 60 Fasting Glucose Calcium Total Bilirubin AST ALT Alkaline Phosphatase Total Protein Albumin Vancomycin Trough 25.7 H* Random Vancomycin 16.0 11/20/21 11/20/21 05:48 05:48 MCV 67.4 L MCH 18.7 L MCHC 27.7 L RDW 18.3 H Plt Count 356 MPV 9.3 L Immature Gran % (Auto) 0.3 Neut % (Auto) 67.0 Lymph % (Auto) 18.0 L [place] % (Auto) 10.2 Eos % (Auto) 4.0 Baso % (Auto) 0.5 Lymph # (Auto) 1.1 L [place] # (Auto) 0.6 Eos # (Auto) 0.3 Baso # (Auto) 0.0 Abs Immat Gran (auto) 0.02 Absolute Neuts (auto) 4.1 Absolute Nucleated RBC 0.000 Nucleated RBC % (auto) 0.0 Anion Gap 13 Estim Creat Clear Calc 101.8 Estimated GFR > 60 Fasting Glucose 97 Calcium 8.9 Total Bilirubin 0.3 AST 296 H ALT 227 H Alkaline Phosphatase 243 H D Total Protein 5.5 L Albumin 3.0 L Vancomycin Trough Random Vancomycin Assessment and Plan (1) Stage IV decubitus ulcer: Status: Acute (2) Anxiety: Status: Acute Plan 36-year-old female with cervical fracture and subsequent paraplegia presents with stage IV gluteal decubitus on left buttocks. Was seen by PCP and advised admission. She denies fever chills. She states this painful and has been worsening. 1. Decubitus ulcer left gluteus On IV vancomycin and iv Zosyn day 4, ulcer base and margins looks clear will DC IV antibiotics continue pain management with oxycodone blood cultures negative , being followed by General surgery underwent bedside debridement yesterday will have wound vac in am wishes home with services upon dc 2. Anxiety continue sertraline, p.r.n. Ativan Full code Lovenox will need continued inpatient hospitalization for wound VAC placement by General surgery at a.m. Quality Stroke Does the patient have a stroke diagnosis?: No VTE Prior VTE?: No VTE Risk Level:: Medical - moderate - high VTE Device Contraindication: Treatment Not Indicated VTE Drug Contraindication: N/A - Med Ordered
[2021-11-20 15:13] VITALS: BP 98/67; PULSE 82; RESP 18; TEMP 37.1; O2SAT 98
[2021-11-20] MEDS: Enoxaparin Sodium 40 MG/0.4 ML SYRINGE SUBCUT (18:12)
[2021-11-20] MEDS: Lactulose 20 GM/30 ML SOLUTION 10 GM PO (18:39)
[2021-11-20 19:25] VITALS: BP 112/79; PULSE 86; RESP 18; TEMP 36.9; O2SAT 99
[2021-11-20 23:19] VITALS: BP 117/72; PULSE 91; RESP 14; TEMP 37.2; O2SAT 97
[2021-11-21 03:49] VITALS: BP 132/91; PULSE 82; RESP 16; TEMP 37.6; O2SAT 97
[2021-11-21 06:06] LABS: MANUAL DIFF FLAG NO
[2021-11-21 06:15] LABS: Basophils Percent Auto 0.5 % (0-2); Eosinophils Absolute Auto 0.4 X10*3/uL (0.0-0.4); Eosinophils Percent Auto 4.9 % (0-4); Hematocrit 26.3 % (37.0-47.0); Hemoglobin 7.4 g/dl (12.0-16.0); Imm Gran Abs Auto 0.03 X10*3/uL (0.00-0.03); Imm Gran Pct Auto 0.4 % (0.0-0.4); Lymphocytes Absolute Auto 1.2 X10*3/uL (1.2-4.9); Lymphocytes Percent Auto 14.5 % (20-40); Mean Corpuscular HGB Conc 28.1 g/dl (31.0-35.0); Mean Corpuscular Hemoglobin 18.9 pg (27.0-33.0); Mean Corpuscular Volume 67.1 fL (80.0-98.0); Monocytes Absolute Auto 0.8 X10*3/uL (0.1-1.2); Monocytes Percent Auto 9.1 % (2-11); Neutrophils Absolute Auto 5.9 x10*3/uL (2.0-8.3); Neutrophils Percent Auto 70.6 % (45-73); Platelet Count 404 X10*3/uL (160-400); Red Blood Count 3.92 X10*6/uL (4.20-5.50); Red Cell Distribution Width 18.6 % (11.0-16.0); White Blood Count 8.4 X10*3/uL (4.8-10.8)
[2021-11-21 06:33] LABS: Alanine Aminotransferase 130 U/L (0-31); Albumin Level 3.1 g/dL (3.5-5.0); Alkaline Phosphatase 189 U/L (39-117); Anion Gap 14 (12-20); Aspartate Amino Transferase 61 U/L (5-31); Bilirubin Total 0.2 mg/dL (0.0-1.0); Blood Urea Nitrogen 10 mg/dL (9-16); Calcium 9.1 mg/dL (8.4-10.2); Carbon Dioxide 22 mmol/L (22-29); Chloride 110 mmol/L (96-108); Creatinine Clr Calc Pharmacy 113.3; Estimated Glomerular Filt Rate > 60; Glucose Fasting 93 mg/dL (60-99); Potassium 3.3 mmol/L (3.3-5.1); Sodium 143 mmol/L (135-145); Total Protein 5.5 g/dL (6.5-8.0)
[2021-11-21 07:39] VITALS: BP 137/96; PULSE 83; RESP 20; TEMP 36.6; O2SAT 98
[2021-11-21] MEDS: 0.9 % Sodium Chloride Flush 3 ML SYRINGE IVFLUSH ×3 (08:14→19:58)
--- NOTE | 2021-11-21 08:39 | PM.PNGS ---
Subjective Subjective Date of Service: 11/21/21 <Samantha Olson PA-C - Last Filed: 11/21/21 08:43> 11/21/21 <Sherman Lewis MD - Last Filed: 11/21/21 12:40> Interval history: Worried about pain with wound vac. <Samantha Olson PA-C - Last Filed: 11/21/21 08:43> Physical Exam Vital Signs: Vital Signs: Last Vital Signs Temp 97.9 F 11/21/21 07:39 Pulse 83 11/21/21 07:39 Resp 20 11/21/21 07:39 BP 137/96 H 11/21/21 07:39 Pulse Ox 98 11/21/21 07:39 BMI result Body Mass Index 23.6 <Samantha Olson PA-C - Last Filed: 11/21/21 08:43> Const: General: comfortable, no acute distress and alert <Samantha Olson PA-C - Last Filed: 11/21/21 08:43> Back/Spine/Pelvis: Other: sacral decubitus ulcer clean and base granulating well, wound vac placed <Samantha Olson PA-C - Last Filed: 11/21/21 08:43> Sacrum: no erythema and No sacral edema <Samantha Olson PA-C - Last Filed: 11/21/21 08:43> Skin: General skin exam: no rashes or lesions noted <Samantha Olson PA-C - Last Filed: 11/21/21 08:43> Objective Data Active Medications Baclofen (Baclofen 20 Mg Tablet) 20 mg PO BID [facility] Last Admin: 11/20/21 20:20 Dose: 20 mg Documented by: DOUGLAS Docusate Sodium (Docusate Sodium 100 Mg Capsule) 100 mg PO BID [facility] Enoxaparin Sodium (Enoxaparin Sodium 40 Mg/0.4 Ml Syringe) 40 mg SUBCUT Q24H [facility] Last Admin: 11/20/21 18:12 Dose: 40 mg Documented by: LEROY Gabapentin (Gabapentin 300 Mg Capsule) 300 mg PO TID [facility] Last Admin: 11/20/21 20:20 Dose: 300 mg Documented by: DOUGLAS Ibuprofen (Ibuprofen 600 Mg Tablet) 600 mg PO Q6H PRN PRN Reason: Pain, Moderate (Pain Scale 4-6 Last Admin: 11/20/21 13:38 Dose: 600 mg Documented by: LEROY Lactulose (Lactulose 20 Gm/30 Ml Solution) 20 gm PO BID [facility] Lorazepam (Lorazepam 0.5 Mg Tablet) 0.5 mg PO Q6H PRN PRN Reason: Anxiety Last Admin: 11/17/21 19:36 Dose: 0.5 mg Documented by: DELILAH Multivitamins/Vitamin C (Multivitamin Tablet) 1 tab PO DAILY [facility] Last Admin: 11/20/21 09:32 Dose: 1 tab Documented by: TWAN Non-Formulary Medication (Darifenacin) 1 tab PO DAILY [facility] Ondansetron HCl (Ondansetron Hcl 4 Mg/2 Ml Vial) 4 mg IVPUSH Q8H PRN PRN Reason: Nausea Last Admin: 11/19/21 18:31 Dose: 4 mg Documented by: LEROY Oxycodone HCl (Oxycodone Hcl Immed Release 5 Mg Tablet) 5 mg PO Q6H PRN PRN Reason: Pain, Moderate (Pain Scale 4-6 Last Admin: 11/17/21 09:55 Dose: 5 mg Documented by: FRANCES Pharmacy Consult (Consult Rx Perform Med Rec) 1 each MISCELLANE ONCE PRN PRN Reason: Consult order Pharmacy Consult (Consult Rx Vancomycin Dosing) 1 each MISCELLANE DAILY PRN PRN Reason: Consult order Polyethylene Glycol (Polyethylene Glycol 3350 17 Gm Powd.Pack) 17 gm PO DAILY [facility] Sertraline HCl (Sertraline Hcl 50 Mg Tablet) 150 mg PO DAILY [facility] Last Admin: 11/20/21 09:32 Dose: 150 mg Documented by: TWAN Sodium Chloride (0.9 % Sodium Chloride Flush 3 Ml Syringe) 3 ml IVFLUSH QSHIFT [facility] Last Admin: 11/21/21 08:14 Dose: 3 ml Documented by: CHARISSE <Samantha Olson PA-C - Last Filed: 11/21/21 08:43> Labs CBC & Chem 7: : 11/21/21 05:50 11/21/21 05:50 <Samantha Olson PA-C - Last Filed: 11/21/21 08:43> Labs: Laboratory Results - last 24 hr 11/21/21 11/21/21 05:50 05:50 MCV 67.1 L MCH 18.9 L MCHC 28.1 L RDW 18.6 H Plt Count 404 H MPV 10.0 Immature Gran % (Auto) 0.4 Neut % (Auto) 70.6 Lymph % (Auto) 14.5 L [place] % (Auto) 9.1 Eos % (Auto) 4.9 H Baso % (Auto) 0.5 Lymph # (Auto) 1.2 [place] # (Auto) 0.8 Eos # (Auto) 0.4 Baso # (Auto) 0.0 Abs Immat Gran (auto) 0.03 Absolute Neuts (auto) 5.9 Absolute Nucleated RBC 0.000 Nucleated RBC % (auto) 0.0 Anion Gap 14 Estim Creat Clear Calc 113.3 Estimated GFR > 60 Fasting Glucose 93 Calcium 9.1 Total Bilirubin 0.2 AST 61 H ALT 130 H Alkaline Phosphatase 189 H D Total Protein 5.5 L Albumin 3.1 L <Samantha Olson PA-C - Last Filed: 11/21/21 08:43> Procedures Date of Service Date of Service: 11/21/21 <Samantha Olson PA-C - Last Filed: 11/21/21 08:43> Progress Note: A&P Assessment and plan (1) Stage IV decubitus ulcer: Status: Acute <Samantha Olson PA-C - Last Filed: 11/21/21 08:43> Assessment and Plan: Left buttock ulcer looks clean Wound VAC applied without difficulty She can be discharged with VNA I can see her in the office for wound checks down the line Seen and examined with EDMUNDO Olson - agree with note <Sherman Lewis MD - Last Filed: 11/21/21 12:40> (2) Paraplegia: Status: Acute <Samantha Olson PA-C - Last Filed: 11/21/21 08:43> Plan 36 year old paraplegic female admitted with stage IV decubitus ulcer and abscess. Wound now clean and beginning to granulate well, measuring 5.5 x 4.5 x 3 cm. Small granuFOAM wound vac placed today, continuous suction. Patient tolerated this well. Ready for dc when wound vac secured for home, will need VNA services. Pain control as needed. <Samantha Olson PA-C - Last Filed: 11/21/21 08:43> Fall Risk Details Current Medications: Current Medications Baclofen (Baclofen 20 Mg Tablet) 20 mg PO BID [facility] Last Admin: 11/20/21 20:20 Dose: 20 mg Documented by: Docusate Sodium (Docusate Sodium 100 Mg Capsule) 100 mg PO BID [facility] Enoxaparin Sodium (Enoxaparin Sodium 40 Mg/0.4 Ml Syringe) 40 mg SUBCUT Q24H [facility] Last Admin: 11/20/21 18:12 Dose: 40 mg Documented by: Gabapentin (Gabapentin 300 Mg Capsule) 300 mg PO TID [facility] Last Admin: 11/20/21 20:20 Dose: 300 mg Documented by: Ibuprofen (Ibuprofen 600 Mg Tablet) 600 mg PO Q6H PRN PRN Reason: Pain, Moderate (Pain Scale 4-6 Last Admin: 11/20/21 13:38 Dose: 600 mg Documented by: Lactulose (Lactulose 20 Gm/30 Ml Solution) 20 gm PO BID [facility] Lorazepam (Lorazepam 0.5 Mg Tablet) 0.5 mg PO Q6H PRN PRN Reason: Anxiety Last Admin: 11/17/21 19:36 Dose: 0.5 mg Documented by: Multivitamins/Vitamin C (Multivitamin Tablet) 1 tab PO DAILY [facility] Last Admin: 11/20/21 09:32 Dose: 1 tab Documented by: Non-Formulary Medication (Darifenacin) 1 tab PO DAILY [facility] Ondansetron HCl (Ondansetron Hcl 4 Mg/2 Ml Vial) 4 mg IVPUSH Q8H PRN PRN Reason: Nausea Last Admin: 11/19/21 18:31 Dose: 4 mg Documented by: Oxycodone HCl (Oxycodone Hcl Immed Release 5 Mg Tablet) 5 mg PO Q6H PRN PRN Reason: Pain, Moderate (Pain Scale 4-6 Last Admin: 11/17/21 09:55 Dose: 5 mg Documented by: Pharmacy Consult (Consult Rx Perform Med Rec) 1 each MISCELLANE ONCE PRN PRN Reason: Consult order Pharmacy Consult (Consult Rx Vancomycin Dosing) 1 each MISCELLANE DAILY PRN PRN Reason: Consult order Polyethylene Glycol (Polyethylene Glycol 3350 17 Gm Powd.Pack) 17 gm PO DAILY [facility] Sertraline HCl (Sertraline Hcl 50 Mg Tablet) 150 mg PO DAILY [facility] Last Admin: 11/20/21 09:32 Dose: 150 mg Documented by: Sodium Chloride (0.9 % Sodium Chloride Flush 3 Ml Syringe) 3 ml IVFLUSH QSHIFT [facility] Last Admin: 11/21/21 08:14 Dose: 3 ml Documented by: <Samantha Olson PA-C - Last Filed: 11/21/21 08:43> Time Spent With Patient Time: Total time spent is greater than 50% in coordination of care (as documented) at patient's floor/unit and/or counseling patient: <Samantha Olson PA-C - Last Filed: 11/21/21 08:43> Quality Stroke Does the patient have a stroke diagnosis?: No <Samantha Olson PA-C - Last Filed: 11/21/21 08:43> VTE Prior VTE?: No <Samantha Olson PA-C - Last Filed: 11/21/21 08:43> VTE Risk Level:: Medical - moderate - high <Samantha Olson PA-C - Last Filed: 11/21/21 08:43> VTE Device Contraindication: Treatment Not Indicated <Samantha Olson PA-C - Last Filed: 11/21/21 08:43> VTE Drug Contraindication: N/A - Med Ordered <ANTHONY Abdi Last Filed: 11/21/21 08:43>
[2021-11-21] MEDS: Docusate Sodium 100 MG CAPSULE PO (08:52)
[2021-11-21] MEDS: Multivitamin TABLET 1 TAB PO (08:53)
[2021-11-21] MEDS: Gabapentin 300 MG CAPSULE PO ×3 (08:53→19:58)
[2021-11-21] MEDS: Baclofen 20 MG TABLET PO ×2 (08:53→19:58)
[2021-11-21] MEDS: Sertraline HCL 50 MG TABLET 150 MG PO (08:53)
[2021-11-21] MEDS: Ibuprofen 600 MG TABLET PO (08:53)
[2021-11-21] MEDS: Lactulose 20 GM/30 ML SOLUTION PO (08:59)
[2021-11-21] MEDS: polyethylene glycoL 3350 17 GM POWD.PACK PO (08:59)
[2021-11-21 12:00] VITALS: BP 126/76; PULSE 84; RESP 18; TEMP 36.4; O2SAT 98
[2021-11-21 15:52] VITALS: BP 121/80; PULSE 79; RESP 18; TEMP 37; O2SAT 96
--- NOTE | 2021-11-21 16:08 | P.PNIM_ITS ---
Subjective Subjective Date of Service: 11/21/21 Interval History: Offers no acute complaints, had no bowel movement in last several days, denies nausea, no abdominal pain, wound VAC placed by General surgery today patient is debating about going home versus going to rehab, no acute issues overnight. Review of Systems Review of Systems: Yes all other systems are reviewed and are negative Physical Exam Vital Signs: Vital Signs: Last Vital Signs Temp 98.6 F 11/21/21 15:52 Pulse 79 11/21/21 15:52 Resp 18 11/21/21 15:52 BP 121/80 11/21/21 15:52 Pulse Ox 96 11/21/21 15:52 BMI result Body Mass Index 23.6 Const: Other: General resting co mfortably ,no acut e distress.? Neck supple CVS? regula r rate rhythm, Res piratory lungs osvaldo ar to auscultation , no respiratory d istress, no wheeze , no rhonchi. Jamie rointestinal abdom en soft, nontender , bowel sounds aud ible Extremities n o edema. Neuro ? C 5 through C7 parap legia, speech grace r. Skin? large lef t buttock ulcer de ep with good granu lation tissue, no drainage no surrou nding redness. Objective Data Active Medications Baclofen (Baclofen 20 Mg Tablet) 20 mg PO BID [facility] Last Admin: 11/21/21 08:53 Dose: 20 mg Documented by: JOE Docusate Sodium (Docusate Sodium 100 Mg Capsule) 100 mg PO BID [facility] Last Admin: 11/21/21 08:52 Dose: 100 mg Documented by: JOE Enoxaparin Sodium (Enoxaparin Sodium 40 Mg/0.4 Ml Syringe) 40 mg SUBCUT Q24H [facility] Last Admin: 11/20/21 18:12 Dose: 40 mg Documented by: LEROY Gabapentin (Gabapentin 300 Mg Capsule) 300 mg PO TID [facility] Last Admin: 11/21/21 08:53 Dose: 300 mg Documented by: JOE Ibuprofen (Ibuprofen 600 Mg Tablet) 600 mg PO Q6H PRN PRN Reason: Pain, Moderate (Pain Scale 4-6 Last Admin: 11/21/21 08:53 Dose: 600 mg Documented by: JOE Lactulose (Lactulose 20 Gm/30 Ml Solution) 20 gm PO BID [facility] Last Admin: 11/21/21 08:59 Dose: 20 gm Documented by: JOE Lorazepam (Lorazepam 0.5 Mg Tablet) 0.5 mg PO Q6H PRN PRN Reason: Anxiety Last Admin: 11/17/21 19:36 Dose: 0.5 mg Documented by: DELILAH Multivitamins/Vitamin C (Multivitamin Tablet) 1 tab PO DAILY [facility] Last Admin: 11/21/21 08:53 Dose: 1 tab Documented by: JOE Non-Formulary Medication (Darifenacin) 1 tab PO DAILY [facility] Ondansetron HCl (Ondansetron Hcl 4 Mg/2 Ml Vial) 4 mg IVPUSH Q8H PRN PRN Reason: Nausea Last Admin: 11/19/21 18:31 Dose: 4 mg Documented by: LEROY Oxycodone HCl (Oxycodone Hcl Immed Release 5 Mg Tablet) 5 mg PO Q6H PRN PRN Reason: Pain, Moderate (Pain Scale 4-6 Last Admin: 11/17/21 09:55 Dose: 5 mg Documented by: FRANCES Pharmacy Consult (Consult Rx Perform Med Rec) 1 each MISCELLANE ONCE PRN PRN Reason: Consult order Pharmacy Consult (Consult Rx Vancomycin Dosing) 1 each MISCELLANE DAILY PRN PRN Reason: Consult order Polyethylene Glycol (Polyethylene Glycol 3350 17 Gm Powd.Pack) 17 gm PO DAILY [facility] Last Admin: 11/21/21 08:59 Dose: 17 gm Documented by: JOE Sertraline HCl (Sertraline Hcl 50 Mg Tablet) 150 mg PO DAILY [facility] Last Admin: 11/21/21 08:53 Dose: 150 mg Documented by: JOE Sodium Chloride (0.9 % Sodium Chloride Flush 3 Ml Syringe) 3 ml IVFLUSH QSHIFT [facility] Last Admin: 11/21/21 08:14 Dose: 3 ml Documented by: CHARISSE Labs CBC & Chem 7: 11/21/21 05:50 11/21/21 05:50 Labs: Laboratory Results - last 24 hr 11/21/21 11/21/21 05:50 05:50 MCV 67.1 L MCH 18.9 L MCHC 28.1 L RDW 18.6 H Plt Count 404 H MPV 10.0 Immature Gran % (Auto) 0.4 Neut % (Auto) 70.6 Lymph % (Auto) 14.5 L [place] % (Auto) 9.1 Eos % (Auto) 4.9 H Baso % (Auto) 0.5 Lymph # (Auto) 1.2 [place] # (Auto) 0.8 Eos # (Auto) 0.4 Baso # (Auto) 0.0 Abs Immat Gran (auto) 0.03 Absolute Neuts (auto) 5.9 Absolute Nucleated RBC 0.000 Nucleated RBC % (auto) 0.0 Anion Gap 14 Estim Creat Clear Calc 113.3 Estimated GFR > 60 Fasting Glucose 93 Calcium 9.1 Total Bilirubin 0.2 AST 61 H ALT 130 H Alkaline Phosphatase 189 H D Total Protein 5.5 L Albumin 3.1 L Microbiology Microbiology Results: Microbiology 11/16/21 12:58 Blood Culture - Final Blood - Venous No growth after 5 days. 11/16/21 12:46 Blood Culture - Final Blood - Venous No growth after 5 days. Assessment and Plan (1) Stage IV decubitus ulcer: Status: Acute (2) Anxiety: Status: Acute Plan 36-year-old female with cervical fracture and subsequent paraplegia presents with stage IV gluteal decubitus on left buttocks. Was seen by PCP and advised admission. She denies fever chills. She states this painful and has been worsening. 1. Decubitus ulcer left gluteus status post IV vancomycin and iv Zosyn x 4 days, antibiotic discontinued s ursula margins and base looks clear continue pain management with Motrin/oxycodone, encouraged to use Motrin blood cultures negative , being followed by General surgery underwent bedside debridement on 11/19 and wound vac placed today. 2. Anxiety continue sertraline, p.r.n. Ativan 3. Constipation given MiraLax, Colace and lactulose if no bowel movement will give enema. Full code Lovenox will need continued inpatient hospitalization since patient need safe discharge since to rehab since new to wound VAC/ CM looking for bed also patient with no bowel movement x6 days, given bowel regimen. Quality Stroke Does the patient have a stroke diagnosis?: No VTE Prior VTE?: No VTE Risk Level:: Medical - moderate - high VTE Device Contraindication: Treatment Not Indicated VTE Drug Contraindication: N/A - Med Ordered
[2021-11-21] MEDS: Enoxaparin Sodium 40 MG/0.4 ML SYRINGE SUBCUT (16:15)
[2021-11-21 23:30] VITALS: BP 140/93; PULSE 78; RESP 18; TEMP 36.4; O2SAT 98
[2021-11-22 04:00] VITALS: BP 130/88; PULSE 88; RESP 18; TEMP 36.4; O2SAT 96
[2021-11-22 06:23] LABS: MANUAL DIFF FLAG NO
[2021-11-22 06:28] LABS: Basophils Percent Auto 0.5 % (0-2); Eosinophils Absolute Auto 0.4 X10*3/uL (0.0-0.4); Eosinophils Percent Auto 4.7 % (0-4); Hematocrit 26.2 % (37.0-47.0); Hemoglobin 7.4 g/dl (12.0-16.0); Imm Gran Abs Auto 0.03 X10*3/uL (0.00-0.03); Imm Gran Pct Auto 0.4 % (0.0-0.4); Lymphocytes Absolute Auto 1.1 X10*3/uL (1.2-4.9); Lymphocytes Percent Auto 13.5 % (20-40); Mean Corpuscular HGB Conc 28.2 g/dl (31.0-35.0); Mean Corpuscular Volume 67.4 fL (80.0-98.0); Mean Platelet Volume 9.4 fL (9.4-12.3); Monocytes Absolute Auto 0.8 X10*3/uL (0.1-1.2); Monocytes Percent Auto 9.7 % (2-11); Neutrophils Percent Auto 71.2 % (45-73); Platelet Count 383 X10*3/uL (160-400); Red Blood Count 3.89 X10*6/uL (4.20-5.50); Red Cell Distribution Width 18.5 % (11.0-16.0); White Blood Count 8.5 X10*3/uL (4.8-10.8)
[2021-11-22 07:01] LABS: Alanine Aminotransferase 77 U/L (0-31); Albumin Level 3.1 g/dL (3.5-5.0); Alkaline Phosphatase 153 U/L (39-117); Anion Gap 12 (12-20); Aspartate Amino Transferase 23 U/L (5-31); Bilirubin Total < 0.2 mg/dL (0.0-1.0); Blood Urea Nitrogen 9 mg/dL (9-16); Calcium 9.4 mg/dL (8.4-10.2); Carbon Dioxide 25 mmol/L (22-29); Chloride 109 mmol/L (96-108); Creatinine Clr Calc Pharmacy 120.1; Estimated Glomerular Filt Rate > 60; Glucose Fasting 90 mg/dL (60-99); Potassium 3.3 mmol/L (3.3-5.1); Sodium 143 mmol/L (135-145); Total Protein 5.6 g/dL (6.5-8.0)
[2021-11-22 07:13] VITALS: BP 132/88; PULSE 76; RESP 18; TEMP 36.4; O2SAT 97
--- NOTE | 2021-11-22 07:54 | PM.PNGS ---
Subjective Subjective Date of Service: 11/22/21 Interval history: Says she is comfortable Wound VAC in place Physical Exam Vital Signs: Vital Signs: Last Vital Signs Temp 97.5 F 11/22/21 07:13 Pulse 76 11/22/21 07:13 Resp 18 11/22/21 07:13 BP 132/88 11/22/21 07:13 Pulse Ox 97 11/22/21 07:13 BMI result Body Mass Index 23.6 Const: General: comfortable and no acute distress Resp: Effort & Inspection: normal respiratory effort Back/Spine/Pelvis: Other: Wound VAC in place, functioning well, no leak Objective Data Active Medications Baclofen (Baclofen 20 Mg Tablet) 20 mg PO BID [facility] Last Admin: 11/21/21 19:58 Dose: 20 mg Documented by: TERRIE Docusate Sodium (Docusate Sodium 100 Mg Capsule) 100 mg PO BID [facility] Last Admin: 11/21/21 19:57 Dose: Not Given Documented by: TERRIE Non-Admin Reason: Loose stools Enoxaparin Sodium (Enoxaparin Sodium 40 Mg/0.4 Ml Syringe) 40 mg SUBCUT Q24H [facility] Last Admin: 11/21/21 16:15 Dose: 40 mg Documented by: CHARISSE Gabapentin (Gabapentin 300 Mg Capsule) 300 mg PO TID [facility] Last Admin: 11/21/21 19:58 Dose: 300 mg Documented by: TERRIE Ibuprofen (Ibuprofen 600 Mg Tablet) 600 mg PO Q6H PRN PRN Reason: Pain, Moderate (Pain Scale 4-6 Last Admin: 11/21/21 08:53 Dose: 600 mg Documented by: JOE Lactulose (Lactulose 20 Gm/30 Ml Solution) 20 gm PO BID [facility] Last Admin: 11/21/21 19:57 Dose: Not Given Documented by: ANTJENISE Non-Admin Reason: loose stools Multivitamins/Vitamin C (Multivitamin Tablet) 1 tab PO DAILY [facility] Last Admin: 11/21/21 08:53 Dose: 1 tab Documented by: JOE Non-Formulary Medication (Darifenacin) 1 tab PO DAILY [facility] Ondansetron HCl (Ondansetron Hcl 4 Mg/2 Ml Vial) 4 mg IVPUSH Q8H PRN PRN Reason: Nausea Last Admin: 11/19/21 18:31 Dose: 4 mg Documented by: LEROY Oxycodone HCl (Oxycodone Hcl Immed Release 5 Mg Tablet) 5 mg PO Q6H PRN PRN Reason: Pain, Moderate (Pain Scale 4-6 Last Admin: 11/17/21 09:55 Dose: 5 mg Documented by: FRANCES Pharmacy Consult (Consult Rx Perform Med Rec) 1 each MISCELLANE ONCE PRN PRN Reason: Consult order Pharmacy Consult (Consult Rx Vancomycin Dosing) 1 each MISCELLANE DAILY PRN PRN Reason: Consult order Polyethylene Glycol (Polyethylene Glycol 3350 17 Gm Powd.Pack) 17 gm PO DAILY [facility] Last Admin: 11/21/21 08:59 Dose: 17 gm Documented by: JOE Sertraline HCl (Sertraline Hcl 50 Mg Tablet) 150 mg PO DAILY [facility] Last Admin: 11/21/21 08:53 Dose: 150 mg Documented by: JOE Sodium Chloride (0.9 % Sodium Chloride Flush 3 Ml Syringe) 3 ml IVFLUSH QSHIFT [facility] Last Admin: 11/21/21 19:58 Dose: 3 ml Documented by: TERRIE Labs CBC & Chem 7: 11/22/21 06:05 11/22/21 06:05 Labs: Laboratory Results - last 24 hr 11/22/21 11/22/21 06:05 06:05 MCV 67.4 L MCH 19.0 L MCHC 28.2 L RDW 18.5 H Plt Count 383 MPV 9.4 Immature Gran % (Auto) 0.4 Neut % (Auto) 71.2 Lymph % (Auto) 13.5 L [place] % (Auto) 9.7 Eos % (Auto) 4.7 H Baso % (Auto) 0.5 Lymph # (Auto) 1.1 L [place] # (Auto) 0.8 Eos # (Auto) 0.4 Baso # (Auto) 0.0 Abs Immat Gran (auto) 0.03 Absolute Neuts (auto) 6.0 Absolute Nucleated RBC 0.000 Nucleated RBC % (auto) 0.0 Anion Gap 12 Estim Creat Clear Calc 120.1 Estimated GFR > 60 Fasting Glucose 90 Calcium 9.4 Total Bilirubin < 0.2 AST 23 D ALT 77 H Alkaline Phosphatase 153 H Total Protein 5.6 L Albumin 3.1 L Microbiology Microbiology Results: Microbiology 11/16/21 12:58 Blood Culture - Final Blood - Venous No growth after 5 days. 11/16/21 12:46 Blood Culture - Final Blood - Venous No growth after 5 days. Procedures Date of Service Date of Service: 11/22/21 Progress Note: A&P Assessment and plan (1) Stage IV decubitus ulcer: Status: Acute Assessment and Plan: Wound VAC placed yesterday functioning well Okay to DC with appropriate care for wound VAC Okay to see me in the office in next 2 weeks Fall Risk Details Current Medications: Current Medications Baclofen (Baclofen 20 Mg Tablet) 20 mg PO BID [facility] Last Admin: 11/21/21 19:58 Dose: 20 mg Documented by: Docusate Sodium (Docusate Sodium 100 Mg Capsule) 100 mg PO BID [facility] Last Admin: 11/21/21 19:57 Dose: Not Given Documented by: Enoxaparin Sodium (Enoxaparin Sodium 40 Mg/0.4 Ml Syringe) 40 mg SUBCUT Q24H [facility] Last Admin: 11/21/21 16:15 Dose: 40 mg Documented by: Gabapentin (Gabapentin 300 Mg Capsule) 300 mg PO TID [facility] Last Admin: 11/21/21 19:58 Dose: 300 mg Documented by: Ibuprofen (Ibuprofen 600 Mg Tablet) 600 mg PO Q6H PRN PRN Reason: Pain, Moderate (Pain Scale 4-6 Last Admin: 11/21/21 08:53 Dose: 600 mg Documented by: Lactulose (Lactulose 20 Gm/30 Ml Solution) 20 gm PO BID [facility] Last Admin: 11/21/21 19:57 Dose: Not Given Documented by: Multivitamins/Vitamin C (Multivitamin Tablet) 1 tab PO DAILY [facility] Last Admin: 11/21/21 08:53 Dose: 1 tab Documented by: Non-Formulary Medication (Darifenacin) 1 tab PO DAILY [facility] Ondansetron HCl (Ondansetron Hcl 4 Mg/2 Ml Vial) 4 mg IVPUSH Q8H PRN PRN Reason: Nausea Last Admin: 11/19/21 18:31 Dose: 4 mg Documented by: Oxycodone HCl (Oxycodone Hcl Immed Release 5 Mg Tablet) 5 mg PO Q6H PRN PRN Reason: Pain, Moderate (Pain Scale 4-6 Last Admin: 11/17/21 09:55 Dose: 5 mg Documented by: Pharmacy Consult (Consult Rx Perform Med Rec) 1 each MISCELLANE ONCE PRN PRN Reason: Consult order Pharmacy Consult (Consult Rx Vancomycin Dosing) 1 each MISCELLANE DAILY PRN PRN Reason: Consult order Polyethylene Glycol (Polyethylene Glycol 3350 17 Gm Powd.Pack) 17 gm PO DAILY [facility] Last Admin: 11/21/21 08:59 Dose: 17 gm Documented by: Sertraline HCl (Sertraline Hcl 50 Mg Tablet) 150 mg PO DAILY [facility] Last Admin: 11/21/21 08:53 Dose: 150 mg Documented by: Sodium Chloride (0.9 % Sodium Chloride Flush 3 Ml Syringe) 3 ml IVFLUSH QSHIFT [facility] Last Admin: 11/21/21 19:58 Dose: 3 ml Documented by: Time Spent With Patient Time: Total time spent is greater than 50% in coordination of care (as documented) at patient's floor/unit and/or counseling patient: Quality Stroke Does the patient have a stroke diagnosis?: No VTE Prior VTE?: No VTE Risk Level:: Medical - moderate - high VTE Device Contraindication: Treatment Not Indicated VTE Drug Contraindication: N/A - Med Ordered
[2021-11-22] MEDS: Multivitamin TABLET 1 TAB PO (08:30)
[2021-11-22] MEDS: Sertraline HCL 50 MG TABLET 150 MG PO (08:30)
[2021-11-22] MEDS: Gabapentin 300 MG CAPSULE PO ×3 (08:30→20:11)
[2021-11-22] MEDS: 0.9 % Sodium Chloride Flush 3 ML SYRINGE IVFLUSH ×3 (08:30→20:17)
[2021-11-22] MEDS: Docusate Sodium 100 MG CAPSULE PO ×2 (08:30→20:12)
[2021-11-22] MEDS: Baclofen 20 MG TABLET PO ×2 (08:30→20:11)
[2021-11-22 11:33] VITALS: BP 106/63; PULSE 81; RESP 18; TEMP 36.1; O2SAT 97
--- NOTE | 2021-11-22 12:38 | MHC.CLN ---
F/U DIET=REGULAR. PATIENT TAKING ENSURE MAX PROTEIN TID (450 KCAL, 90 G PROTEIN). PATIENT WITH STAGE IV PRESSURE INJURY TO LEFT BUTTOCKS. WOUND VAC OF 11/21. VARIABLE INTAKE, BUT USUALLY GOOD. FOLLOW FOR WOUND HEALING AND INTAKE.
--- NOTE | 2021-11-22 15:58 | P.PNIM_ITS ---
Subjective Subjective Date of Service: 11/22/21 Interval History: Offers no acute complaints, had a bowel movement, denies nausea vomiting abdominal pain, concern about going home and requesting for rehab for 1 week to get use to with wound VAC. Review of Systems General resting comfortably ,no acute distress.? Neck supple CVS? regular rate rhythm, Respiratory lungs clear to auscultation, no respiratory distress, no wheeze, no rhonchi. Gastrointestinal abdomen soft, nontender, bowel sounds audible Extremities no edema. Neuro ? C5 through C7 paraplegia, speech clear. Skin? large left buttock ulcer wound VAC in place Review of Systems: Yes all other systems are reviewed and are negative Physical Exam Vital Signs: Vital Signs: Last Vital Signs Temp 97.0 F 11/22/21 11:33 Pulse 81 11/22/21 11:33 Resp 18 11/22/21 11:33 BP 106/63 11/22/21 11:33 Pulse Ox 97 11/22/21 11:33 BMI result Body Mass Index 23.6 Objective Data Active Medications Baclofen (Baclofen 20 Mg Tablet) 20 mg PO BID [facility] Last Admin: 11/22/21 08:30 Dose: 20 mg Documented by: CLAY Docusate Sodium (Docusate Sodium 100 Mg Capsule) 100 mg PO BID [facility] Last Admin: 11/22/21 08:30 Dose: 100 mg Documented by: CLAY Enoxaparin Sodium (Enoxaparin Sodium 40 Mg/0.4 Ml Syringe) 40 mg SUBCUT Q24H [facility] Last Admin: 11/21/21 16:15 Dose: 40 mg Documented by: CHARISSE Gabapentin (Gabapentin 300 Mg Capsule) 300 mg PO TID [facility] Last Admin: 11/22/21 15:19 Dose: 300 mg Documented by: CLAY Ibuprofen (Ibuprofen 600 Mg Tablet) 600 mg PO Q6H PRN PRN Reason: Pain, Moderate (Pain Scale 4-6 Last Admin: 11/21/21 08:53 Dose: 600 mg Documented by: JOE Lactulose (Lactulose 20 Gm/30 Ml Solution) 20 gm PO BID [facility] Last Admin: 11/22/21 08:31 Dose: Not Given Documented by: CLAY Non-Admin Reason: Patient Refused Multivitamins/Vitamin C (Multivitamin Tablet) 1 tab PO DAILY [facility] Last Admin: 11/22/21 08:30 Dose: 1 tab Documented by: CLAY Ondansetron HCl (Ondansetron Hcl 4 Mg/2 Ml Vial) 4 mg IVPUSH Q8H PRN PRN Reason: Nausea Last Admin: 11/19/21 18:31 Dose: 4 mg Documented by: LEROY Oxycodone HCl (Oxycodone Hcl Immed Release 5 Mg Tablet) 5 mg PO Q6H PRN PRN Reason: Pain, Moderate (Pain Scale 4-6 Last Admin: 11/17/21 09:55 Dose: 5 mg Documented by: FRANCES Pharmacy Consult (Consult Rx Perform Med Rec) 1 each MISCELLANE ONCE PRN PRN Reason: Consult order Polyethylene Glycol (Polyethylene Glycol 3350 17 Gm Powd.Pack) 17 gm PO DAILY [facility] Last Admin: 11/22/21 08:31 Dose: Not Given Documented by: CLAY Non-Admin Reason: Patient Refused Sertraline HCl (Sertraline Hcl 50 Mg Tablet) 150 mg PO DAILY [facility] Last Admin: 11/22/21 08:30 Dose: 150 mg Documented by: CLAY Sodium Chloride (0.9 % Sodium Chloride Flush 3 Ml Syringe) 3 ml IVFLUSH QSHIFT [facility] Last Admin: 11/22/21 15:20 Dose: 3 ml Documented by: CLAY Labs CBC & Chem 7: 11/22/21 06:05 11/22/21 06:05 Labs: Laboratory Results - last 24 hr 11/22/21 11/22/21 06:05 06:05 MCV 67.4 L MCH 19.0 L MCHC 28.2 L RDW 18.5 H Plt Count 383 MPV 9.4 Immature Gran % (Auto) 0.4 Neut % (Auto) 71.2 Lymph % (Auto) 13.5 L [place] % (Auto) 9.7 Eos % (Auto) 4.7 H Baso % (Auto) 0.5 Lymph # (Auto) 1.1 L [place] # (Auto) 0.8 Eos # (Auto) 0.4 Baso # (Auto) 0.0 Abs Immat Gran (auto) 0.03 Absolute Neuts (auto) 6.0 Absolute Nucleated RBC 0.000 Nucleated RBC % (auto) 0.0 Anion Gap 12 Estim Creat Clear Calc 120.1 Estimated GFR > 60 Fasting Glucose 90 Calcium 9.4 Total Bilirubin < 0.2 AST 23 D ALT 77 H Alkaline Phosphatase 153 H Total Protein 5.6 L Albumin 3.1 L Microbiology Microbiology Results: Microbiology 11/16/21 12:58 Blood Culture - Final Blood - Venous No growth after 5 days. 11/16/21 12:46 Blood Culture - Final Blood - Venous No growth after 5 days. Assessment and Plan (1) Stage IV decubitus ulcer: Status: Acute (2) Anxiety: Status: Acute Plan 36-year-old female with cervical fracture and subsequent paraplegia presents with stage IV gluteal decubitus on left buttocks. Was seen by PCP and advised admission. She denies fever chills. She states this painful and has been worsening. 1. Decubitus ulcer left gluteus status post IV vancomycin and iv Zosyn x 4 days, antibiotic discontinued since margins and base looks clear continue pain management with Motrin/oxycodone, encouraged to use Motrin blood cultures negative , being followed by General surgery underwent bedside debridement on 11/19 and wound vac placed 11/21 2. Anxiety continue sertraline, p.r.n. Ativan 3. Constipation resolved 4. Elevated LFTs trending down likely due to antibiotics, no abdominal pain no nausea no vomiting. 5. Chronic microcytic anemia, hematocrit 26.2 with an MCV of [address] on iron supplement Full code Lovenox will need continued inpatient hospitalization since patient need safe discharge since new to wound VAC is paraplegic, insurance declined rehab bed, patient appealing insurance decision. Quality Stroke Does the patient have a stroke diagnosis?: No VTE Prior VTE?: No VTE Risk Level:: Medical - moderate - high VTE Device Contraindication: Treatment Not Indicated VTE Drug Contraindication: N/A - Med Ordered
[2021-11-22] MEDS: Potassium Chloride ER 20 MEQ TAB.ER.PRT 40 MEQ PO (17:11)
[2021-11-22] MEDS: Throat Lozenge, Medicated LOZENGE 1 LOZENGE MUCOUS MEM ×2 (17:12→23:46)
[2021-11-22] MEDS: Ferrous Sulfate 324 MG TABLET.DR PO (17:12)
[2021-11-22] MEDS: Enoxaparin Sodium 40 MG/0.4 ML SYRINGE SUBCUT (17:12)
[2021-11-22 20:00] VITALS: BP 136/84; PULSE 78; RESP 18; TEMP 36.6; O2SAT 97
[2021-11-22 23:22] VITALS: BP 121/78; PULSE 82; RESP 18; TEMP 36.9; O2SAT 97
[2021-11-22] MEDS: Ibuprofen 600 MG TABLET PO (23:49)
[2021-11-23 03:37] VITALS: BP 128/85; PULSE 71; RESP 18; TEMP 36.6; O2SAT 95
[2021-11-23 07:18] VITALS: BP 115/72; PULSE 85; RESP 18; TEMP 36.6; O2SAT 95
[2021-11-23] MEDS: 0.9 % Sodium Chloride Flush 3 ML SYRINGE IVFLUSH ×2 (07:49→15:19)
[2021-11-23] MEDS: Gabapentin 300 MG CAPSULE PO ×3 (07:50→20:34)
[2021-11-23] MEDS: Sertraline HCL 50 MG TABLET 150 MG PO (07:50)
[2021-11-23] MEDS: Docusate Sodium 100 MG CAPSULE PO ×2 (07:50→20:34)
[2021-11-23] MEDS: Multivitamin TABLET 1 TAB PO (07:51)
[2021-11-23] MEDS: Ferrous Sulfate 324 MG TABLET.DR PO (07:51)
[2021-11-23] MEDS: Baclofen 20 MG TABLET PO ×2 (07:52→20:34)
--- NOTE | 2021-11-23 10:18 | P.PNIM_ITS ---
Subjective Subjective Date of Service: 11/23/21 Interval History: No acute complaints, wants to know her lab work result, sore throat has improved, requesting for B12 short since has history of B12 deficiency and was receiving Q monthly injection. Review of Systems [employer] no headache no dizziness CVS no chest pain Respiratory no shortness of breath, no cough Review of Systems: Yes all other systems are reviewed and are negative Physical Exam Vital Signs: Vital Signs: Last Vital Signs Temp 97.9 F 11/23/21 07:18 Pulse 85 11/23/21 07:18 Resp 18 11/23/21 07:18 BP 115/72 11/23/21 07:18 Pulse Ox 95 11/23/21 07:18 BMI result Body Mass Index 23.6 Const: Other: General resting comfortably ,no acute distress.? Neck supple CVS? regular rate rhythm, Respiratory lungs clear to auscultation, no respiratory distress, no wheeze, no rhonchi. Gastrointestinal abdomen soft, nontender, bowel sounds audible Extremities no edema. Neuro ? C5 through C7 paraplegia, speech clear. Skin? large left buttock ulcer wound VAC in place with serosanguineous drainage small amount Objective Data Active Medications Baclofen (Baclofen 20 Mg Tablet) 20 mg PO BID [facility] Last Admin: 11/23/21 07:52 Dose: 20 mg Documented by: CLAY Benzocaine (Throat Lozenge, Medicated Lozenge) 1 lozenge MUCOUS MEM Q2H PRN PRN Reason: Sore Throat Last Admin: 11/22/21 23:46 Dose: 1 lozenge Documented by: PAULO Docusate Sodium (Docusate Sodium 100 Mg Capsule) 100 mg PO BID [facility] Last Admin: 11/23/21 07:50 Dose: 100 mg Documented by: CLAY Enoxaparin Sodium (Enoxaparin Sodium 40 Mg/0.4 Ml Syringe) 40 mg SUBCUT Q24H [facility] Last Admin: 11/22/21 17:12 Dose: 40 mg Documented by: CLAY Ferrous Sulfate (Ferrous Sulfate 324 Mg Tablet.) 324 mg PO BIDWM [facility] Last Admin: 11/23/21 07:51 Dose: 324 mg Documented by: CLAY Gabapentin (Gabapentin 300 Mg Capsule) 300 mg PO TID [facility] Last Admin: 11/23/21 07:50 Dose: 300 mg Documented by: CLAY Ibuprofen (Ibuprofen 600 Mg Tablet) 600 mg PO Q6H PRN PRN Reason: Pain, Moderate (Pain Scale 4-6 Last Admin: 11/22/21 23:49 Dose: 600 mg Documented by: PAULO Lactulose (Lactulose 20 Gm/30 Ml Solution) 20 gm PO BID [facility] Last Admin: 11/23/21 07:51 Dose: Not Given Documented by: CLAY Non-Admin Reason: Patient Refused Multivitamins/Vitamin C (Multivitamin Tablet) 1 tab PO DAILY [facility] Last Admin: 11/23/21 07:51 Dose: 1 tab Documented by: CLAY Ondansetron HCl (Ondansetron Hcl 4 Mg/2 Ml Vial) 4 mg IVPUSH Q8H PRN PRN Reason: Nausea Last Admin: 11/19/21 18:31 Dose: 4 mg Documented by: LEROY Oxycodone HCl (Oxycodone Hcl Immed Release 5 Mg Tablet) 5 mg PO Q6H PRN PRN Reason: Pain, Moderate (Pain Scale 4-6 Last Admin: 11/17/21 09:55 Dose: 5 mg Documented by: FRANCES Pharmacy Consult (Consult Rx Perform Med Rec) 1 each MISCELLANE ONCE PRN PRN Reason: Consult order Polyethylene Glycol (Polyethylene Glycol 3350 17 Gm Powd.Pack) 17 gm PO DAILY [facility] Last Admin: 11/23/21 07:51 Dose: Not Given Documented by: CLAY Non-Admin Reason: Patient Refused Sertraline HCl (Sertraline Hcl 50 Mg Tablet) 150 mg PO DAILY [facility] Last Admin: 11/23/21 07:50 Dose: 150 mg Documented by: CLAY Sodium Chloride (0.9 % Sodium Chloride Flush 3 Ml Syringe) 3 ml IVFLUSH QSHIFT [facility] Last Admin: 11/23/21 07:49 Dose: 3 ml Documented by: CLAY Labs CBC & Chem 7: 11/22/21 06:05 11/22/21 06:05 Assessment and Plan (1) Stage IV decubitus ulcer: Status: Acute (2) Anxiety: Status: Acute Plan 36-year-old female with cervical fracture and subsequent paraplegia presents with stage IV gluteal decubitus on left buttocks. Was seen by PCP and advised admission. She denies fever chills. She states this painful and has been worsening. 1. Decubitus ulcer left gluteus status post IV vancomycin and iv Zosyn x 4 days, antibiotic discontinued since margins and base looks clear, no need for further antibiotics. continue pain management with Motrin/oxycodone, encouraged to use Motrin blood cultures negative , being followed by General surgery underwent bedside debridement on 11/19 and wound vac placed 11/21 2. Anxiety continue sertraline, p.r.n. Ativan, no anxiety symptoms 3. Constipation resolved , continue stool softeners MiraLax Colace and lactulose 4. Elevated LFTs trending down likely due to antibiotics, no abdominal pain no nausea no vomiting, no further workup warranted 5. Chronic microcytic anemia, hematocrit 26.2 with an MCV of 67, history of significant iron deficiency anemia, will check iron profile, if loose saturation will give IV iron, not having periods using control pills, likely poor dietary intake, will check stool guaiac 6. History of B12 deficiency will check B12 level 7. Sore throat resolved continue as needed lozenges Full code Lovenox will need continued inpatient hospitalization since patient need safe discharge since new to wound VAC is paraplegic, insurance declined rehab bed, patient appealing insurance decision, cm following case. Quality Stroke Does the patient have a stroke diagnosis?: No VTE Prior VTE?: No VTE Risk Level:: Medical - moderate - high VTE Device Contraindication: Treatment Not Indicated VTE Drug Contraindication: N/A - Med Ordered
[2021-11-23 11:15] LABS: Iron 24 mcg/dL (30-160); Percent Iron Saturation 7 % (15-50); Total Iron Binding Capacity 341 mcg/dL (228-428); Unsaturated Iron Binding 317 ug/dL
[2021-11-23 11:28] VITALS: BP 148/96; PULSE 81; RESP 18; TEMP 36.8; O2SAT 96
--- NOTE | 2021-11-23 12:23 | MHC.CM.PN ---
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 PT EXPECTS TO DC HOME THURSDAY WHEN SHE WILL HAVE ASSISTANCE AT HOME. JOSE ANTONIO OWENS NOTIFIED
[2021-11-23] MEDS: Sodium Ferric Gluconat/Sucrose 125 MG in 0.9 % Sodium Chloride 100 ML 100 MG IV (15:18)
[2021-11-23 15:19] VITALS: BP 139/97; PULSE 81; RESP 18; TEMP 36.3; O2SAT 97
[2021-11-23] MEDS: Enoxaparin Sodium 40 MG/0.4 ML SYRINGE SUBCUT (17:48)
[2021-11-23] MEDS: Ibuprofen 600 MG TABLET PO (17:48)
[2021-11-23 19:43] VITALS: BP 134/84; PULSE 84; RESP 18; TEMP 37.3; O2SAT 97
[2021-11-23] MEDS: Lactulose 20 GM/30 ML SOLUTION PO (20:35)
[2021-11-24] VITALS (7 sets, daily range): BP systolic 105–149; BP diastolic 64–99; PULSE 72–85; RESP 17–18; TEMP 36.1–36.9; O2SAT 94–98
[2021-11-24] MEDS: 0.9 % Sodium Chloride Flush 3 ML SYRINGE IVFLUSH ×3 (01:22→15:54)
[2021-11-24] MEDS: Multivitamin TABLET 1 TAB PO (09:17)
[2021-11-24] MEDS: Gabapentin 300 MG CAPSULE PO ×3 (09:17→20:52)
[2021-11-24] MEDS: Sertraline HCL 50 MG TABLET 150 MG PO (09:17)
[2021-11-24] MEDS: Docusate Sodium 100 MG CAPSULE PO ×2 (09:17→20:52)
[2021-11-24] MEDS: Baclofen 20 MG TABLET PO ×2 (09:17→20:52)
[2021-11-24] MEDS: Sodium Ferric Gluconat/Sucrose 125 MG in 0.9 % Sodium Chloride 100 ML 100 MG IV (09:24)
--- NOTE | 2021-11-24 12:07 | P.PNIM_ITS ---
Subjective Subjective Date of Service: 11/24/21 Interval History: [place] a little anxious yesterday, today feeling better, denies pain, no fever, no chills, no acute issues overnight, tolerating IV iron infusion. Review of Systems Review of Systems: Yes all other systems are reviewed and are negative Physical Exam Vital Signs: Vital Signs: Last Vital Signs Temp 96.9 F 11/24/21 11:21 Pulse 80 11/24/21 11:21 Resp 18 11/24/21 11:21 BP 149/97 H 11/24/21 11:21 Pulse Ox 98 11/24/21 11:21 BMI result Body Mass Index 23.6 Const: Other: General resting co mfortably ,no acut e distress.? Neck supple CVS? regula r rate rhythm, Res piratory lungs osvaldo ar to auscultation , no respiratory d istress, no wheeze , no rhonchi. Jamie rointestinal abdom en soft, nontender , bowel sounds aud ible Extremities n o edema. Neuro ? C 5 through C7 parap legia, speech grace r. Skin?pallor/ le ft buttock wound V AC in place with s erosanguineous migdalia inage small amount Objective Data Active Medications Baclofen (Baclofen 20 Mg Tablet) 20 mg PO BID [facility] Last Admin: 11/24/21 09:17 Dose: 20 mg Documented by: CLAY Benzocaine (Throat Lozenge, Medicated Lozenge) 1 lozenge MUCOUS MEM Q2H PRN PRN Reason: Sore Throat Last Admin: 11/22/21 23:46 Dose: 1 lozenge Documented by: PAULO Docusate Sodium (Docusate Sodium 100 Mg Capsule) 100 mg PO BID [facility] Last Admin: 11/24/21 09:17 Dose: 100 mg Documented by: CLAY Enoxaparin Sodium (Enoxaparin Sodium 40 Mg/0.4 Ml Syringe) 40 mg SUBCUT Q24H [facility] Last Admin: 11/23/21 17:48 Dose: 40 mg Documented by: CLAY Gabapentin (Gabapentin 300 Mg Capsule) 300 mg PO TID [facility] Last Admin: 11/24/21 09:17 Dose: 300 mg Documented by: CLAY Ferric Sodium Gluconate Complex 125 mg/ Sodium Chloride 110 mls @ 100 mls/hr IV DAILY [facility] Stop: 11/25/21 10:05 Last Infusion: 11/24/21 10:38 Dose: 0 mls/hr Documented by: CLAY Ibuprofen (Ibuprofen 600 Mg Tablet) 600 mg PO Q6H PRN PRN Reason: Pain, Moderate (Pain Scale 4-6 Last Admin: 11/23/21 17:48 Dose: 600 mg Documented by: CLAY Lactulose (Lactulose 20 Gm/30 Ml Solution) 20 gm PO BID [facility] Last Admin: 11/24/21 11:34 Dose: Not Given Documented by: CLAY Non-Admin Reason: Patient Refused Multivitamins/Vitamin C (Multivitamin Tablet) 1 tab PO DAILY [facility] Last Admin: 11/24/21 09:17 Dose: 1 tab Documented by: CLAY Ondansetron HCl (Ondansetron Hcl 4 Mg/2 Ml Vial) 4 mg IVPUSH Q8H PRN PRN Reason: Nausea Last Admin: 11/19/21 18:31 Dose: 4 mg Documented by: LEROY Oxycodone HCl (Oxycodone Hcl Immed Release 5 Mg Tablet) 5 mg PO Q6H PRN PRN Reason: Pain, Moderate (Pain Scale 4-6 Last Admin: 11/17/21 09:55 Dose: 5 mg Documented by: FRANCES Pharmacy Consult (Consult Rx Perform Med Rec) 1 each MISCELLANE ONCE PRN PRN Reason: Consult order Polyethylene Glycol (Polyethylene Glycol 3350 17 Gm Powd.Pack) 17 gm PO DAILY [facility] Last Admin: 11/24/21 11:34 Dose: Not Given Documented by: CLAY Non-Admin Reason: Patient Refused Sertraline HCl (Sertraline Hcl 50 Mg Tablet) 150 mg PO DAILY [facility] Last Admin: 11/24/21 09:17 Dose: 150 mg Documented by: CLAY Sodium Chloride (0.9 % Sodium Chloride Flush 3 Ml Syringe) 3 ml IVFLUSH QSHIFT [facility] Last Admin: 11/24/21 09:16 Dose: 3 ml Documented by: CLAY Labs CBC & Chem 7: 11/22/21 06:05 11/22/21 06:05 Assessment and Plan (1) Stage IV decubitus ulcer: Status: Acute (2) Anxiety: Status: Acute Plan 36-year-old female with cervical fracture and subsequent paraplegia presents with stage IV gluteal decubitus on left buttocks. Was seen by PCP and advised admission. She denies fever chills. She states this painful and has been worsening. 1. Decubitus ulcer left gluteus status post IV vancomycin and iv Zosyn x 4 days, antibiotic discontinued since margins and base looks clear, no need for further antibiotics. continue pain management with Motrin/oxycodone blood cultures negative , being followed by General surgery underwent bedside debridement on 11/19 and wound vac placed 11/21 2. Anxiety continue sertraline, no anxiety symptoms today. 3. Constipation resolved , continue stool softeners MiraLax Colace and lactulose, had bowel movement last night 4. Elevated LFTs trending down likely due to antibiotics, no abdominal pain no nausea, no vomiting, no further workup warranted. 5. Chronic microcytic anemia, hematocrit 26.2 with an MCV of 67, history of si gnificant iron deficiency anemia, iron saturation 7 and total iron 24, receiving IV iron, not having periods using control pills, likely poor dietary intake, follow stool guaiac 6. History of B12 deficiency, B12 level pending 7. Sore throat resolved continue as needed lozenges Full code Lovenox will need continued inpatient hospitalization since patient need safe discharge since new to wound VAC is paraplegic, also receiving IV iron infusion, insurance declined rehab bed, patient appealing insurance decision, cm following case. Quality Stroke Does the patient have a stroke diagnosis?: No VTE Prior VTE?: No VTE Risk Level:: Medical - moderate - high VTE Device Contraindication: Treatment Not Indicated VTE Drug Contraindication: N/A - Med Ordered
[2021-11-24] MEDS: LORazepam 0.5 MG TABLET PO ×2 (14:39→22:29)
[2021-11-24] MEDS: Enoxaparin Sodium 40 MG/0.4 ML SYRINGE SUBCUT (17:37)
--- NOTE | 2021-11-24 18:32 | PC.NURSE ---
Surgery to change wound vac dressing. This RN messaged Dr Peraza about change. Dr Peraza responded stating that he didnt know the patient and he will see tomorrow.
[2021-11-24] MEDS: polyethylene glycoL 3350 17 GM POWD.PACK PO (22:29)
[2021-11-25] MEDS: 0.9 % Sodium Chloride Flush 3 ML SYRINGE IVFLUSH ×2 (00:43→08:15)
[2021-11-25 03:48] VITALS: BP 132/89; PULSE 76; RESP 18; TEMP 36.2; O2SAT 96
[2021-11-25 07:31] VITALS: BP 119/76; PULSE 79; RESP 18; TEMP 36.3; O2SAT 99
[2021-11-25 07:58] LABS: Vitamin B12 251 pg/mL (200-900)
[2021-11-25] MEDS: Sertraline HCL 50 MG TABLET 150 MG PO (08:13)
[2021-11-25] MEDS: Gabapentin 300 MG CAPSULE PO ×2 (08:14→14:40)
[2021-11-25] MEDS: Multivitamin TABLET 1 TAB PO (08:14)
[2021-11-25] MEDS: Ibuprofen 600 MG TABLET PO (08:14)
[2021-11-25] MEDS: Docusate Sodium 100 MG CAPSULE PO (08:14)
[2021-11-25] MEDS: Baclofen 20 MG TABLET PO (08:15)
--- NOTE | 2021-11-25 09:20 | PM.PNGS ---
Subjective Subjective Date of Service: 11/25/21 Interval history: Patient with no new complaints, looking for to being discharged to home. Physical Exam Vital Signs: Vital Signs: Last Vital Signs Temp 97.3 F 11/25/21 07:31 Pulse 79 11/25/21 07:31 Resp 18 11/25/21 07:31 BP 119/76 11/25/21 07:31 Pulse Ox 99 11/25/21 07:31 BMI result Body Mass Index 23.6 Const: General: comfortable and no acute distress Nutritional Appearance: well nourished Orientation/consciousness: patient oriented x3 Limitations: wheelchair Resp: Effort & Inspection: normal respiratory effort Skin: Other: Left buttock wound dressings changed. Current wound measures 3 x 1.5 x 1 cm deep. The base of the wound is granulating with no evidence of necrotic skin or tunneling. Edges of the wound are very shallow. Wound VAC replaced using a elliptical shaped 3 x 1.5 x 1 cm Granulex foam dressing. Patient tolerated the dressing very well. Outpatient VAC device applied. Full body images: 1. Site of wound in left buttock 3 x 1.5 x 1 cm deep, granulated base, no skin necrosis or new ulceration. Neuro: General: patient oriented x3 Objective Data Active Medications Baclofen (Baclofen 20 Mg Tablet) 20 mg PO BID ON LICENSE OF [facility] Last Admin: 11/25/21 08:15 Dose: 20 mg Documented by: MAXIMILIANO Benzocaine (Throat Lozenge, Medicated Lozenge) 1 lozenge MUCOUS MEM Q2H PRN PRN Reason: Sore Throat Last Admin: 11/22/21 23:46 Dose: 1 lozenge Documented by: PAULO Docusate Sodium (Docusate Sodium 100 Mg Capsule) 100 mg PO BID ON LICENSE OF [facility] Last Admin: 11/25/21 08:14 Dose: 100 mg Documented by: MAXIMILIANO Enoxaparin Sodium (Enoxaparin Sodium 40 Mg/0.4 Ml Syringe) 40 mg SUBCUT Q24H ON LICENSE OF [facility] Last Admin: 11/24/21 17:37 Dose: 40 mg Documented by: CLAY Gabapentin (Gabapentin 300 Mg Capsule) 300 mg PO TID ON LICENSE OF [facility] Last Admin: 11/25/21 08:14 Dose: 300 mg Documented by: MAXIMILIANO Ferric Sodium Gluconate Complex 125 mg/ Sodium Chloride 110 mls @ 100 mls/hr IV DAILY ON LICENSE OF [facility] Stop: 11/25/21 10:05 Last Infusion: 11/24/21 10:38 Dose: 0 mls/hr Documented by: CLAY Ibuprofen (Ibuprofen 600 Mg Tablet) 600 mg PO Q6H PRN PRN Reason: Pain, Moderate (Pain Scale 4-6 Last Admin: 11/25/21 08:14 Dose: 600 mg Documented by: MAXIMILIANO Lactulose (Lactulose 20 Gm/30 Ml Solution) 20 gm PO BID ON LICENSE OF [facility] Last Admin: 11/24/21 22:40 Dose: Not Given Documented by: PAULO Non-Admin Reason: Patient Refused Lorazepam (Lorazepam 0.5 Mg Tablet) 0.5 mg PO Q8H PRN PRN Reason: Anxiety Last Admin: 11/24/21 22:29 Dose: 0.5 mg Documented by: PAULO Multivitamins/Vitamin C (Multivitamin Tablet) 1 tab PO DAILY ON LICENSE OF [facility] Last Admin: 11/25/21 08:14 Dose: 1 tab Documented by: MAXIMILIANO Ondansetron HCl (Ondansetron Hcl 4 Mg/2 Ml Vial) 4 mg IVPUSH Q8H PRN PRN Reason: Nausea Last Admin: 11/19/21 18:31 Dose: 4 mg Documented by: LEROY Oxycodone HCl (Oxycodone Hcl Immed Release 5 Mg Tablet) 5 mg PO Q6H PRN PRN Reason: Pain, Moderate (Pain Scale 4-6 Last Admin: 11/17/21 09:55 Dose: 5 mg Documented by: FRANCES Pharmacy Consult (Consult Rx Perform Med Rec) 1 each MISCELLANE ONCE PRN PRN Reason: Consult order Polyethylene Glycol (Polyethylene Glycol 3350 17 Gm Powd.Pack) 17 gm PO DAILY ON LICENSE OF [facility] Last Admin: 11/24/21 22:29 Dose: 17 gm Documented by: PAULO Comments: pt requested med she didnt take in this morning Sertraline HCl (Sertraline Hcl 50 Mg Tablet) 150 mg PO DAILY ON LICENSE OF [facility] Last Admin: 11/25/21 08:13 Dose: 150 mg Documented by: MAXIMILIANO Sodium Chloride (0.9 % Sodium Chloride Flush 3 Ml Syringe) 3 ml IVFLUSH QSHIFT ON LICENSE OF [facility] Last Admin: 11/25/21 08:15 Dose: 3 ml Documented by: MAXIMILIANO Labs CBC & Chem 7: 11/22/21 06:05 11/22/21 06:05 Labs: Laboratory Results - last 24 hr 11/23/21 10:28 Vitamin B12 251 Procedures Date of Service Date of Service: 11/25/21 Progress Note: A&P Assessment and plan (1) Stage IV decubitus ulcer: Status: Acute Plan Wound VAC dressing applied today as noted above. Patient ready for discharge from surgical standpoint. She should follow up with Dr. Lewis in 1-2 weeks. Fall Risk Details Current Medications: Current Medications Baclofen (Baclofen 20 Mg Tablet) 20 mg PO BID ON LICENSE OF [facility] Last Admin: 11/25/21 08:15 Dose: 20 mg Documented by: Benzocaine (Throat Lozenge, Medicated Lozenge) 1 lozenge MUCOUS MEM Q2H PRN PRN Reason: Sore Throat Last Admin: 11/22/21 23:46 Dose: 1 lozenge Documented by: Docusate Sodium (Docusate Sodium 100 Mg Capsule) 100 mg PO BID ON LICENSE OF [facility] Last Admin: 11/25/21 08:14 Dose: 100 mg Documented by: Enoxaparin Sodium (Enoxaparin Sodium 40 Mg/0.4 Ml Syringe) 40 mg SUBCUT Q24H ON LICENSE OF [facility] Last Admin: 11/24/21 17:37 Dose: 40 mg Documented by: Gabapentin (Gabapentin 300 Mg Capsule) 300 mg PO TID ON LICENSE OF [facility] Last Admin: 11/25/21 08:14 Dose: 300 mg Documented by: Ferric Sodium Gluconate Complex 125 mg/ Sodium Chloride 110 mls @ 100 mls/hr IV DAILY ON LICENSE OF [facility] Stop: 11/25/21 10:05 Last Infusion: 11/24/21 10:38 Dose: Infused Documented by: Ibuprofen (Ibuprofen 600 Mg Tablet) 600 mg PO Q6H PRN PRN Reason: Pain, Moderate (Pain Scale 4-6 Last Admin: 11/25/21 08:14 Dose: 600 mg Documented by: Lactulose (Lactulose 20 Gm/30 Ml Solution) 20 gm PO BID ON LICENSE OF [facility] Last Admin: 11/24/21 22:40 Dose: Not Given Documented by: Lorazepam (Lorazepam 0.5 Mg Tablet) 0.5 mg PO Q8H PRN PRN Reason: Anxiety Last Admin: 11/24/21 22:29 Dose: 0.5 mg Documented by: Multivitamins/Vitamin C (Multivitamin Tablet) 1 tab PO DAILY ON LICENSE OF [facility] Last Admin: 11/25/21 08:14 Dose: 1 tab Documented by: Ondansetron HCl (Ondansetron Hcl 4 Mg/2 Ml Vial) 4 mg IVPUSH Q8H PRN PRN Reason: Nausea Last Admin: 11/19/21 18:31 Dose: 4 mg Documented by: Oxycodone HCl (Oxycodone Hcl Immed Release 5 Mg Tablet) 5 mg PO Q6H PRN PRN Reason: Pain, Moderate (Pain Scale 4-6 Last Admin: 11/17/21 09:55 Dose: 5 mg Documented by: Pharmacy Consult (Consult Rx Perform Med Rec) 1 each MISCELLANE ONCE PRN PRN Reason: Consult order Polyethylene Glycol (Polyethylene Glycol 3350 17 Gm Powd.Pack) 17 gm PO DAILY ON LICENSE OF [facility] Last Admin: 11/24/21 22:29 Dose: 17 gm Documented by: Sertraline HCl (Sertraline Hcl 50 Mg Tablet) 150 mg PO DAILY ON LICENSE OF [facility] Last Admin: 11/25/21 08:13 Dose: 150 mg Documented by: Sodium Chloride (0.9 % Sodium Chloride Flush 3 Ml Syringe) 3 ml IVFLUSH QSHIFT ON LICENSE OF [facility] Last Admin: 11/25/21 08:15 Dose: 3 ml Documented by: Time Spent With Patient Time: Total time spent is greater than 50% in coordination of care (as documented) at patient's floor/unit and/or counseling patient: No Severe Sepsis: No Severe Sepsis Quality Stroke Does the patient have a stroke diagnosis?: No VTE Prior VTE?: No VTE Risk Level:: Medical - moderate - high VTE Device Contraindication: Treatment Not Indicated VTE Drug Contraindication: N/A - Med Ordered
[2021-11-25] MEDS: Sodium Ferric Gluconat/Sucrose 125 MG in 0.9 % Sodium Chloride 100 ML 100 MG IV (09:31)
--- NOTE | 2021-11-25 10:02 | P.DS_ITS ---
DS: Providers Provider Date of Service: 11/25/21 Date of admission: 11/16/21 20:38 Primary care physician: Sherman Marquez MD Consults: 11/16/21 16:28 Consult to General Surgery Routine Consulting Provider: Glenda Jett Reason for consultation: gluteal decub Has provider been notified: No DS: Diagnosis Discharge Diagnosis (1) Stage IV decubitus ulcer: Status: Acute DS: Summary Hospital Course Hospital Course: Chief Complaint: gluteal decubitus 36-year-old female with history of spinal cord injury at the age of 18 and subsequent paraplegia presents with a left buttock cheek decubitus.? She was seen by her PCP yesterday and he felt that she should seek IV antibiotics/ER evaluation.? When queried patient states about a month ago she developed an abrasion from a slide board.? She states over the last week it has been worsening and now is painful.? She denies fever and chills.? She denies other injuries. In the ER, CT scan of the pelvis demonstrated a left posterior upper thigh decu bital ulcer with subcutaneous abscess directly open to the ulcer extends deep to the buttock and pelvic bone without evidence of destruction to suggest osteomyelitis.? She will be admitted for IV antibiotics and surgical consultation Hospital course 36-year-old female with cervical fracture and subsequent paraplegia presents with stage IV gluteal decubitus on left buttocks,was seen by PCP and advised admission, patient denied associated fever chills but complained of Worseing pain patient admitted to medical floor with a diagnosis of left gluteal stage IV decubiti ulcer patient was initially treated with IV vancomycin and iv Zosyn but antibiotic were discontinued since margins and base looked clear, therefore antibiotic discontinued after 4 days, blood cultures were negative, patient was seen by General surgery patient underwent bedside debridement on November 19 and a wound VAC was placed and 11/21, wound VAC is functioning well patient had a dressing change today prior to discharge and has been recommended dressing change Thursday and Thursday by VNA services and outpatient follow-up with Dr. Lewis in next 1-2 weeks For pain control patient has been given oxycodone 5 mg q.4 hours total lumbar 12 dispensed. ?? In regard to paraplegia with history of anxiety and constipation patient was continued on sertraline and due to significant constipation patient was placed on MiraLax, Colace and lactulose, with good result patient is now being discharged home with lactulose and MiraLax and has Colace at home. Transaminitis, LFTs trending down likely due to antibiotics, no abdominal pain no nausea, no vomiting, no further workup warranted. Acute on Chronic microcytic anemia, hematocrit 26.2 with an MCV of 67, history of significant iron deficiency anemia, iron? saturation 7 and total iron 24, received IV iron x3 days and has been recommended to continue iron supplement as outpatient , likely due to poor dietary intake, recommend to follow stool guaiac History of B12 deficiency, B12 level low normal recommend to continue B12 shots. Time Spent with Patient Time attestation: Total time spent providing and/or coordinating discharge services: Discharge coordination time: Greater than 30 minutes Quality: Safe Use of Opioids Does Pt have an Active Cancer Diagnosis on the Problem List?: No Quality: Stroke Does the patient have a stroke diagnosis?: No Physical Exam Vital Signs: Vital Signs: Last Vital Signs Temp 97.3 F 11/25/21 07:31 Pulse 79 11/25/21 07:31 Resp 18 11/25/21 07:31 BP 119/76 11/25/21 07:31 Pulse Ox 99 11/25/21 07:31 BMI result Body Mass Index 23.6 Const: Other: General resting co mfortably ,no acut e distress.? Neck supple CVS? regula r rate rhythm, Res piratory lungs osvaldo ar to auscultation , no respiratory d istress, no wheeze , no rhonchi. Jamie rointestinal abdom en soft, nontender , bowel sounds aud ible Extremities n o edema. Neuro ? C 5 through C7 parap legia, speech grace r. Skin? large lef t buttock ulcer wo und VAC in place w ith serosanguineou s drainage small a mount DS: Data Data Completed and Pending Labs on day of discharge: Laboratory Results - last 24 hr 11/23/21 10:28 Vitamin B12 251 Discharge Plan Discharge Patient Disposition: Home Health Service Discharge Diagnosis: Left gluteus decub ulcer Acute on chronic iron deficieny anemia Transaminitis Referrals: Richard OWENS [Outside] - 1 Day Sherman Marquez MD [Primary Care Provider] - 1 Week Glenda Jett MD [Physician] - 1 Week Discharge Medications: New polyethylene glycol 3350 17 gram Powder In Packet 17 g PO DAILY Qty: 30 0RF lactulose 20 gram/30 mL Solution 20 g PO BID Qty: 3000 0RF oxycodone 5 mg Tablet 5 mg PO Q6H PRN (Reason: Pain, Moderate (Pain Scale 4-6) Qty: 12 0RF Continued multivitamin Tablet 1 tab PO DAILY 0RF sertraline 100 mg tablet 1.5 tab PO DAILY 0RF baclofen 20 mg tablet 1 tab PO BID 0RF docusate sodium [Colace] 100 mg Capsule 100 mg PO DAILY 0RF gabapentin 300 mg capsule 1 cap PO TID 0RF darifenacin 7.5 mg tablet extended release 24 hr 1 tab PO DAILY 0RF Discharge Orders: Discharge Order (Routine); Ordered 11/25/21 Ordered By: Perry Gunn Diet: advance to usual diet Activity on Discharge: As tolerated Stand Alone Forms: Patient Portal Discharge page Activity Restrictions/Additional Instructions: GRANUFOAM Small sponge Wound vac 125mmHg continuous Change q3-4d and PRN F[facility] Care Plan Goals: Change wound VAC every Thursday and Thursday/take stool softeners to avoid constipation/use oxycodone for severe pain/take iron supplements for iron deficiency anemia and continue B12 shots Q monthly Health Concerns: Decubiti ulcer continue wound vac you are being discharged home with VNA services for wound VAC dressing change 3 times per week, follow-up with Dr. Lewis in 1-2 weeks Take pain medications as indicated Plan of Treatment: Outpatient follow-up with primary care physician call for an appointment Assessment: As per discharge summary
[2021-11-25] MEDS: Cyanocobalamin (Vitamin B-12) 1,000 MCG/ML VIAL 1000 MCG IM (10:31)
[2021-11-25 12:00] VITALS: BP 129/87; PULSE 79; RESP 18; TEMP 37.1; O2SAT 96
--- NOTE | 2021-11-25 12:01 | W.MHC.F2F ---
Service Date Service Date: 11/25/21 Encounter Date of encounter: 11/25/21 Reasons for Services Signs and symptoms assessed: Left gluteal ulcer/paraplegia/anemia Reason for chcf: wound care and medication treatment Reason for physical therapy: home safety and mobility Reason for occupational therapy: home safety and mobility Homebound: Leaving the home is medically contraindicated at this time without the asist of a device and/or another person due th the listed conditions above and below. Reason homebound: other Homebound supporting statement: Paraplegia/decub ulcer Certification: Based on the above findings, I certify that this patient is confined to the home and needs intermittent chcf care, physical therapy and/or speech therapy, or continues to need occupational therapy. The patient is under my care, and I have initiated the establishment of the plan of care. The patient will be followed by a physician who will periodically review the plan of care.
[2021-11-25 16:00] VITALS: BP 147/74; PULSE 75; RESP 18; TEMP 37; O2SAT 96
--- NOTE | 2021-12-04 06:47 | P.CDIR_ITS ---
Retrospective Query PHYSICIAN'S DOCUMENTATION REQUEST Date of Query: 12/04/21 0647 Patient Name: Day Vazquez Admit Date: 11/16/21 Dear Doctor, A review of the medical record indicates additional documentation may be needed. Please review below and update the documentation accordingly. Clinical Indicators: Risk Factors/Clinical Indicators/Treatments Per H&P 11/17/21: stage 4 decubitus ulcer debrided and cleaned large left ischial wound with necrotic gangrenous fat tissue debrided at bedside and probes deep to near bone but not directly exposed Could you provide further clarification regarding the debridement? Please specify the type of debridement performed: * Excisional debridement - defined as removal by excision of: devitalized tissue, necrosis, or slough * Non-excisional debridement - defined as removal of devitalized tissue, necrosis, or slough by such methods as: irrigation, brushing, scrubbing, or washing. If the debridement was excisional please also include: * Type of instrument used (#11 blade, #15 blade, etc.) Use of terms such as suspected, likely, concern for, or probable (associated with a specific diagnosis that is being evaluated, monitored, or treated as if it exists) are acceptable and can be coded in the inpatient setting, when documented at the time of discharge. Thank you, Isa Hensley RN Extension: [phone] Please use your independent medical judgment in providing your response. THIS QUERY IS PART OF THE PERMANENT MEDICAL RECORD
--- NOTE | 2021-12-04 06:55 | P.CDIR_ITS ---
Documented by User: Isa Hensley RN 12/04/21 07:00 Retrospective Query PHYSICIAN'S DOCUMENTATION REQUEST Date of Query: 12/04/21 0656 Patient Name: Day Vazquez Admit Date: 11/16/21 Dear Doctor, A review of the medical record indicates additional documentation may be needed. Please review below and update the documentation accordingly. Clinical Indicators: Risk Factors/Clinical Indicators/Treatments Per MD progress note 11/19/21: large gluteal ulcer, about 5 x 4 cm, extending deep into muscle layer about 3.5 cm deep, thick fibrinous tissue in base sharp excisional debridement of the ulcer at bedside sharp debridement done using scissors to remove nonviable tissue at base Could you provide further clarification regarding the debridement? For excisional please also include: * Depth of debridement (skin, subcutaneous tissue, muscle, fascia, bone, etc.) Use of terms such as suspected, likely, concern for, or probable (associated with a specific diagnosis that is being evaluated, monitored, or treated as if it exists) are acceptable and can be coded in the inpatient setting, when documented at the time of discharge. Thank you, Isa Hensley RN Extension: [phone] Please use your independent medical judgment in providing your response. THIS QUERY IS PART OF THE PERMANENT MEDICAL RECORD Documented by User: Sherman Lewis MD 12/04/21 13:43 Retrospective Query Provider Response: Other (debridement of skin, and subcutaneous fat done sharply at bedside)
== END 2021-11-25 18:47 | disposition home health service (06) | DRG 571 ==
LOC: HO.ED 15:05 → HO.EDOVER 20:48 → HO.S3 11-17 15:17
PROVIDERS: Hospitalist; Nurse Practitioner Family; Admitting Provider Internal Medicine; Emergency Provider Emergency Medicine; PCP Internal Medicine; Visit Provider Hospitalist
DX: L89.324 Pressure ulcer of left buttock, stage 4 (principal); G82.20 Paraplegia, unspecified; F41.9 Anxiety disorder, unspecified; E53.8 Deficiency of other specified B group vitamins; K59.00 Constipation, unspecified; D50.9 Iron deficiency anemia, unspecified; Z91.14 Patient's other noncompliance with medication regimen; Z20.822 Contact with and (suspected) exposure to COVID-19; Z91.041 Radiographic dye allergy status; Z91.040 Latex allergy status; Z79.899 Other long term (current) drug therapy
CPT/HCPCS: 36415; 72193; 80048; 80053; 80076; 80202; 81025; 82565; 82607; 83540; 83605; 85025; 85652; 86140; 87040; 87635; 96365; 96367; 96375; 99285; C1758; J1200; J1650; J1885; J2405; J2543; J2916; J3370; Q9967

== ENCOUNTER 2021-12-04 16:43 | Emergency (ER) | payer MEDICARE, SELFPAY ==
--- NOTE | ~2021-12-04 | CT_ITS ---
EXAMINATION: CT ABDOMEN AND PELVIS WITHOUT CONTRAST CLINICAL INFORMATION: Diffuse abdominal pain. COMPARISON: CT pelvis 11/16/[address] abdomen pelvis 07/24/2021 TECHNIQUE: Multidetector volumetric imaging was performed from the superior aspect of the liver through the pubic symphysis. Sagittal and coronal reformatted images were obtained on the technologist's workstation. This CT examination was performed using dose optimization techniques as appropriate, variously including the following: *Automated exposure control *Adjustment of mA and/or kV according to patient size (this includes techniques or standardized protocols for targeted exams where dose is matched to indication/reason for exam; i.e. extremities or head) *Use of iterative reconstruction technique DLP: 682 mGy-cm FINDINGS: LUNG BASES: There is minimal atelectatic changes left lung base with posterior basilar pleural thickening. The heart size is normal. LIVER, GALLBLADDER, AND BILIARY TREE: The liver is normal in size, shape, and attenuation. No focal hepatic lesion or biliary ductal dilatation is present. The gallbladder is unremarkable with no evidence of radiopaque gallstones, gallbladder wall thickening, or obvious pericholecystic inflammatory changes. PANCREAS: Unremarkable. SPLEEN: Unremarkable. ADRENAL GLANDS: Unremarkable. KIDNEYS AND URETERS: The kidneys are normal in size, shape, and attenuation. No hydronephrosis, hydroureter, or calculi seen. No perinephric stranding. BLADDER: There is a López's catheter in the empty bladder. GASTROINTESTINAL TRACT: There is scattered stool and gas seen throughout the colon consistent with severe constipation. The small bowel loops are normal caliber. Appendix is not visualized. There is no free air or free fluid seen. ABDOMINAL WALL: No significant hernia is appreciated. There is mild fat stranding right lateral abdomen with mild skin thickening likely low-grade inflammatory process. LYMPH NODES: Normal. VASCULAR: Unremarkable. PELVIC VISCERA: The uterus is anteverted with punctate circumferential calcifications likely fibroid.. No free fluid or free air seen. There is no abnormal pelvic or inguinal lymphadenopathy. The left buttock decubitus ulcer without air-fluid level. There is thick scar extending to the left ischium but no periosteal thickening or erosive changes to suspect any osteomyelitis. OSSEOUS STRUCTURES: There is moderate bridging osteophytes throughout lower dorsal and upper lumbar spine. No compressive fracture seen. There are small round lytic areas seen in mid L5 and L2 vertebra. Mild scoliosis lumbar spine. CT/CT abdomen pelvis wo con IMPRESSION: Moderate constipation without signs of obstruction. No free air or free fluid. There is a López's catheter in bladder. No radiopaque renal calculi or hydronephrosis. Left buttock decubitus scarred ulcer. Right lower lateral abdominal wall edema and fat stranding, nonspecific inflammatory process. Fleischner guidelines were followed.
[2021-12-04 16:50] VITALS: BP 131/60; PULSE 61; RESP 14; TEMP 37.1; O2SAT 96; BMI 23.0
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
[2021-12-04 17:44] LABS: MANUAL DIFF FLAG NO
[2021-12-04 17:46] LABS: Basophils Absolute Auto 0.1 X10*3/uL (0.0-0.2); Basophils Percent Auto 0.4 % (0-2); Eosinophils Absolute Auto 0.2 X10*3/uL (0.0-0.4); Eosinophils Percent Auto 1.5 % (0-4); Hematocrit 27.3 % (37.0-47.0); Hemoglobin 7.9 g/dl (12.0-16.0); Imm Gran Abs Auto 0.06 X10*3/uL (0.00-0.03); Imm Gran Pct Auto 0.5 % (0.0-0.4); Lymphocytes Percent Auto 7.9 % (20-40); Mean Corpuscular HGB Conc 28.9 g/dl (31.0-35.0); Mean Corpuscular Hemoglobin 20.2 pg (27.0-33.0); Mean Corpuscular Volume 69.6 fL (80.0-98.0); Mean Platelet Volume 9.8 fL (9.4-12.3); Monocytes Absolute Auto 0.9 X10*3/uL (0.1-1.2); Neutrophils Absolute Auto 10.5 x10*3/uL (2.0-8.3); Neutrophils Percent Auto 82.7 % (45-73); Platelet Count 451 X10*3/uL (160-400); Red Blood Count 3.92 X10*6/uL (4.20-5.50); Red Cell Distribution Width 21.8 % (11.0-16.0); White Blood Count 12.7 X10*3/uL (4.8-10.8)
[2021-12-04 18:02] LABS: Lactic Acid 0.7 mmol/L (0.5-2.0)
[2021-12-04 18:03] LABS: COVID-19 Test Negative (Negative); IDNOW Serial# 16C4AD1C; IDNOW Serial# 55D5AD1C; Influenza A Negative (Negative); Influenza B2 Negative (Negative)
[2021-12-04 18:08] LABS: Alanine Aminotransferase 28 U/L (0-31); Albumin Level 3.1 g/dL (3.5-5.0); Alkaline Phosphatase 118 U/L (39-117); Anion Gap 15 (12-20); Aspartate Amino Transferase 22 U/L (5-31); Bilirubin Direct < 0.2 mg/dL (0.0-0.5); Bilirubin Total 0.2 mg/dL (0.0-1.0); Blood Urea Nitrogen 8 mg/dL (9-16); Calcium 8.8 mg/dL (8.4-10.2); Carbon Dioxide 23 mmol/L (22-29); Chloride 100 mmol/L (96-108); Creatinine Clr Calc Pharmacy 171.2; Estimated Glomerular Filt Rate > 60; Glucose Random 81 mg/dL (60-115); Lipase 40 U/L (8-78); Potassium 3.4 mmol/L (3.3-5.1); Sodium 135 mmol/L (135-145); Total Protein 5.8 g/dL (6.5-8.0)
--- NOTE | 2021-12-04 18:57 | PC.NURSE ---
Addendum entered by Cecelia Ann 12/04/21 22:40: fleet enema given, pt tolerated it well Addendum entered by Cecelia Ann 12/04/21 19:22: pt alert and oriented. resting in bed. no signs of acute distress notice. breathing equally unlabored. denies any chest pain or sob. provider made aware of pt temp 100.4 Original Note: Report received from SHARLENE Lemon
[2021-12-04] MEDS: 0.9 % Sodium Chloride 1,000 ML 999 ML IVCONT (19:09)
[2021-12-04] MEDS: ondansetron HCL 4 MG/2 ML VIAL IVPUSH (19:09)
[2021-12-04 19:19] VITALS: BP 109/72; PULSE 96; RESP 16; TEMP 38; O2SAT 97
[2021-12-04] MEDS: Acetaminophen 325 MG TABLET 650 MG PO (19:30)
[2021-12-04] MEDS: LORazepam 2 MG/ML VIAL IVPUSH (19:30)
[2021-12-04 19:48] LABS: HCG Quantitative < 2 mIU/mL
[2021-12-04 21:25] VITALS: TEMP 37.4
[2021-12-04] MEDS: Sodium Phosphate,Mono-Dibasic 133 ML ENEMA PR (22:25)
[2021-12-04] MEDS: PEG 3350/Na Sulf,Bicarb,Cl/KCL 4,000 ML SOLN.RECON 4000 ML PO (23:23)
[2021-12-04 23:47] VITALS: BP 105/68; PULSE 100; RESP 20; TEMP 37.2; O2SAT 97
--- NOTE | 2021-12-05 00:09 | PC.NURSE ---
EMS at bedside for transport.
== END 2021-12-05 00:47 | disposition home or self-care (01) ==
PROVIDERS: Emergency Provider Emergency Medicine; PCP Internal Medicine
DX: K59.00 Constipation, unspecified (principal); L89.329 Pressure ulcer of left buttock, unspecified stage; T24.011D Burn of unspecified degree of right thigh, subsequent encounter; T31.0 Burns involving less than 10% of body surface; X15.8XXD Contact with other hot household appliances, subsequent encounter; G82.20 Paraplegia, unspecified; S14.105S Unspecified injury at C5 level of cervical spinal cord, sequela; X58.XXXS Exposure to other specified factors, sequela; Z96.0 Presence of urogenital implants; Z20.822 Contact with and (suspected) exposure to COVID-19
CPT/HCPCS: 36415; 74176; 80048; 80076; 83605; 83690; 84702; 85025; 87040; 87502; 87635; 96361; 96374; 96375; 99284; J2060; J2405

== ENCOUNTER 2022-01-12 14:50 | Outpatient (REF) | payer MEDICARE, SELFPAY | END 2022-01-12 14:51 | disposition home or self-care (01) | LOC: HO.HVNA 14:50 | PROVIDERS: PCP Internal Medicine; Visit Provider Internal Medicine | DX: B99.9 Unspecified infectious disease (principal) | CPT/HCPCS: 87071; 87205 ==

== ENCOUNTER → 2022-01-22 12:57 | Outpatient (BNVA) | payer MEDICARE, SELFPAY | PROVIDERS: PCP Internal Medicine; Referring Provider Internal Medicine; Visit Provider Surgery | DX: T21.32XD Burn of third degree of abdominal wall, subsequent encounter (principal); L89.94 Pressure ulcer of unspecified site, stage 4; G82.20 Paraplegia, unspecified; T14.8XXS Other injury of unspecified body region, sequela; Z99.3 Dependence on wheelchair | CPT/HCPCS: 99212 ==

== ENCOUNTER 2022-02-24 08:05 | Outpatient (RCR) | payer MEDICARE, SELFPAY | END 2022-05-23 14:25 | disposition home or self-care (01) | LOC: HO.WCC 08:05 | PROVIDERS: Visit Provider Surgery | DX: T21.22XD Burn of second degree of abdominal wall, subsequent encounter (principal); L89.123 Pressure ulcer of left upper back, stage 3; G82.54 Quadriplegia, C5-C7 incomplete; D50.9 Iron deficiency anemia, unspecified | CPT/HCPCS: 11042; 16030; 99213; 99215 ==

== ENCOUNTER 2022-07-31 12:37 | Outpatient (RCR) | payer MEDICARE, SELFPAY ==
--- NOTE | ~2022-07-31 | XR_ITS ---
EXAMINATION: XR PELVIS CLINICAL INFORMATION: Nonhealing wound; question abscess. COMPARISON: CT abdomen and pelvis dated 12/04/2021. TECHNIQUE: AP and lateral views of the pelvis are submitted. FINDINGS: There is bony demineralization. The soft tissue planes are unremarkable, without ectopic gas or foreign body. A calcified uterine fibroid is noted. There are pelvic phleboliths. There are moderate degenerative changes of the hips. The sacroiliac joints are symmetric and well-maintained. The pubic symphysis is intact. XR/XR pelvis min 3V IMPRESSION: 1. Soft tissues are unremarkable. 2. There are moderate degenerative changes of the hips. 3. A calcified uterine fibroid is noted.
== END 2023-06-05 14:40 | disposition home or self-care (01) ==
LOC: HO.WCC 12:37
PROVIDERS: Visit Provider Surgery
DX: L89.222 Pressure ulcer of left hip, stage 2 (principal); L03.113 Cellulitis of right upper limb; G82.52 Quadriplegia, C1-C4 incomplete; D51.9 Vitamin B12 deficiency anemia, unspecified; F10.90 Alcohol use, unspecified, uncomplicated; Z79.899 Other long term (current) drug therapy
CPT/HCPCS: 11042; 72190; 87070; 87073; 87077; 87186; 87205; 97597; 99212; 99213

== ENCOUNTER 2023-02-02 09:28 | Outpatient (REF) | payer MEDICARE, SELFPAY ==
[2023-02-02 10:25] LABS: MANUAL DIFF FLAG NO
[2023-02-02 10:31] LABS: Basophils Absolute Auto 0.1 X10*3/uL (0.0-0.2); Basophils Percent Auto 1.2 % (0-2); Eosinophils Absolute Auto 0.1 X10*3/uL (0.0-0.4); Eosinophils Percent Auto 2.2 % (0-4); Hematocrit 32.7 % (37.0-47.0); Hemoglobin 10.1 g/dl (12.0-16.0); Imm Gran Abs Auto 0.01 X10*3/uL (0.00-0.03); Imm Gran Pct Auto 0.2 % (0.0-0.4); Immature Retic Fraction 19.2 % (3.0-15.9); Lymphocytes Absolute Auto 2.3 X10*3/uL (1.2-4.9); Lymphocytes Percent Auto 39.6 % (20-40); Mean Corpuscular HGB Conc 30.9 g/dl (31.0-35.0); Mean Corpuscular Hemoglobin 23.6 pg (27.0-33.0); Mean Corpuscular Volume 76.4 fL (80.0-98.0); Mean Platelet Volume 10.2 fL (9.4-12.3); Monocytes Absolute Auto 0.6 X10*3/uL (0.1-1.2); Neutrophils Absolute Auto 2.8 x10*3/uL (2.0-8.3); Neutrophils Percent Auto 46.8 % (45-73); Platelet Count 298 X10*3/uL (160-400); Red Blood Count 4.28 X10*6/uL (4.20-5.50); Red Cell Distribution Width 15.8 % (11.0-16.0); Reticulocyte Percent 1.6 % (0.5-1.8); Reticulocytes Absolute 0.068 X10*6/uL (0.026-0.095); White Blood Count 5.9 X10*3/uL (4.8-10.8)
[2023-02-02 11:15] LABS: Estimated Average Glucose 82 mg/dL; Hemoglobin A1c % 4.5 %
[2023-02-02 11:18] LABS: Erythrocyte Sedimentation Rate 7 MM/HR (0-20)
[2023-02-02 12:46] LABS: Anion Gap 16 (12-20); Blood Urea Nitrogen 7 mg/dL (9-16); C Reactive Protein 0.17 mg/dL (< or = 0.50); Carbon Dioxide 18 mmol/L (22-29); Chloride 106 mmol/L (96-108); Estimated Glomerular Filt Rate > 60; Glucose Random 74 mg/dL (60-115); Iron 24 mcg/dL (30-160); Percent Iron Saturation 6 % (15-50); Potassium 3.5 mmol/L (3.3-5.1); Sodium 136 mmol/L (135-145); Total Iron Binding Capacity 397 mcg/dL (228-428); Unsaturated Iron Binding 373 ug/dL
[2023-02-02 13:04] LABS: Ferritin 10 ng/mL (10-122)
[2023-02-02 13:34] LABS: Folate 4.4 ng/mL (> or = 4.0); Vitamin B12 180 pg/mL (200-900)
== END 2023-02-02 09:29 | disposition home or self-care (01) ==
LOC: HO.10HDL 09:28
PROVIDERS: PCP Internal Medicine; Visit Provider Physician Assistant
DX: S71.002D Unspecified open wound, left hip, subsequent encounter (principal); D64.9 Anemia, unspecified; G82.50 Quadriplegia, unspecified
CPT/HCPCS: 36415; 80048; 82607; 82728; 82746; 83036; 83540; 84134; 85025; 85045; 85652; 86140

== ENCOUNTER 2023-12-23 14:08 | Outpatient (REF) | payer MEDICARE, SELFPAY ==
[2023-12-23 14:50] LABS: MANUAL DIFF FLAG NO
[2023-12-23 14:54] LABS: Basophils Absolute Auto 0.1 X10*3/uL (0.0-0.2); Basophils Percent Auto 1.3 % (0-2); Eosinophils Absolute Auto 0.2 X10*3/uL (0.0-0.4); Hematocrit 33.9 % (37.0-47.0); Hemoglobin 10.5 g/dl (12.0-16.0); Imm Gran Abs Auto 0.02 X10*3/uL (0.00-0.03); Imm Gran Pct Auto 0.4 % (0.0-0.4); Lymphocytes Absolute Auto 1.8 X10*3/uL (1.2-4.9); Lymphocytes Percent Auto 33.6 % (20-40); Mean Corpuscular Hemoglobin 24.3 pg (27.0-33.0); Mean Corpuscular Volume 78.5 fL (80.0-98.0); Mean Platelet Volume 9.2 fL (9.4-12.3); Monocytes Absolute Auto 0.4 X10*3/uL (0.1-1.2); Neutrophils Absolute Auto 2.9 x10*3/uL (2.0-8.3); Neutrophils Percent Auto 54.7 % (45-73); Platelet Count 385 X10*3/uL (160-400); Red Blood Count 4.32 X10*6/uL (4.20-5.50); Red Cell Distribution Width 16.2 % (11.0-16.0); White Blood Count 5.3 X10*3/uL (4.8-10.8)
[2023-12-23 15:46] LABS: Alanine Aminotransferase 13 U/L (0-31); Albumin Level 3.9 g/dL (3.5-5.0); Alkaline Phosphatase 77 U/L (39-117); Anion Gap 18 (12-20); Aspartate Amino Transferase 15 U/L (5-31); Bilirubin Total 0.2 mg/dL (0.0-1.0); Blood Urea Nitrogen 3 mg/dL (9-16); Calcium 8.8 mg/dL (8.4-10.2); Carbon Dioxide 18 mmol/L (22-29); Chloride 104 mmol/L (96-108); Cholesterol 149 mg/dL (<200); Estimated Glomerular Filt Rate > 60; Glucose Random 80 mg/dL (60-115); Sodium 136 mmol/L (135-145); Total Protein 6.7 g/dL (6.5-8.0)
[2023-12-23 16:01] LABS: Thyroid Stimulating Hormone 0.95 uIU/mL (0.32-4.0)
[2023-12-23 16:14] LABS: Folate 5.7 ng/mL (> or = 4.0); Vitamin B12 186 pg/mL (200-900)
== END 2023-12-23 14:09 | disposition home or self-care (01) ==
LOC: HO.LAB 14:08
PROVIDERS: PCP Internal Medicine; Visit Provider Internal Medicine
DX: M81.8 Other osteoporosis without current pathological fracture (principal); K59.00 Constipation, unspecified
CPT/HCPCS: 36415; 80053; 82306; 82465; 82607; 82746; 84443; 85025

== ENCOUNTER 2025-01-10 13:39 | Outpatient (AMB) | payer MEDICARE, SELFPAY ==
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
[2025-01-10 14:03] VITALS: BP 94/68; PULSE 87; RESP 14; TEMP 36.7; O2SAT 99; BMI 23.3
== END 2025-01-10 14:47 | disposition home or self-care (01) ==
LOC: HO.HMCHD 13:40
PROVIDERS: PCP Physician Assistant; Visit Provider Physician Assistant
DX: S14.105A Unspecified injury at C5 level of cervical spinal cord, initial encounter (principal); D50.9 Iron deficiency anemia, unspecified; E53.8 Deficiency of other specified B group vitamins; E55.9 Vitamin D deficiency, unspecified; N31.9 Neuromuscular dysfunction of bladder, unspecified

== ENCOUNTER 2025-01-10 13:39 | Outpatient (REF) | payer MEDICARE, SELFPAY ==
[2025-01-10 16:56] LABS: Eosinophils Absolute Auto 0.1 X10*3/uL (0.0-0.4); PLT CLUMP 1; Red Cell Distribution Width 14.7 % (11.0-16.0); SCAN SMEAR FLAG 1
[2025-01-10 16:58] LABS: Basophils Absolute Auto 0.1 X10*3/uL (0.0-0.2); Basophils Percent Auto 1.4 % (0-2); Eosinophils Percent Auto 2.5 % (0-4); Hematocrit 37.8 % (37.0-47.0); Hemoglobin 11.5 g/dl (12.0-16.0); Imm Gran Abs Auto 0.01 X10*3/uL (0.00-0.03); Imm Gran Pct Auto 0.2 % (0.0-0.4); Lymphocytes Absolute Auto 1.1 X10*3/uL (1.2-4.9); Lymphocytes Percent Auto 21.8 % (20-40); MANUAL DIFF FLAG SCAN; Mean Corpuscular HGB Conc 30.4 g/dl (31.0-35.0); Mean Corpuscular Hemoglobin 25.4 pg (27.0-33.0); Mean Corpuscular Volume 83.4 fL (80.0-98.0); Mean Platelet Volume 10.4 fL (9.4-12.3); Monocytes Absolute Auto 0.5 X10*3/uL (0.1-1.2); Monocytes Percent Auto 10.5 % (2-11); Neutrophils Absolute Auto 3.3 x10*3/uL (2.0-8.3); Neutrophils Percent Auto 63.6 % (45-73); Red Blood Count 4.53 X10*6/uL (4.20-5.50)
[2025-01-10 17:11] LABS: Estimated Average Glucose 85 mg/dL; Hemoglobin A1c % 4.6 % (<6.0)
[2025-01-10 17:33] LABS: White Blood Count 5.1 X10*3/uL (4.8-10.8)
[2025-01-10 17:34] LABS: Platelet Count 306 X10*3/uL (160-400)
[2025-01-10 17:35] LABS: SLIDE REVIEW VERIFIED
[2025-01-10 17:43] LABS: Anion Gap 17 (12-20)
[2025-01-10 17:45] LABS: Alanine Aminotransferase 31 U/L (0-31); Albumin Level 4.2 g/dL (3.5-5.0); Alkaline Phosphatase 88 U/L (39-117); Aspartate Amino Transferase 32 U/L (5-31); Bilirubin Direct 0.1 mg/dL (0.0-0.5); Bilirubin Total 0.3 mg/dL (0.0-1.0); Blood Urea Nitrogen 6 mg/dL (9-16); Calcium 8.9 mg/dL (8.4-10.2); Carbon Dioxide 19 mmol/L (22-29); Chloride 108 mmol/L (96-108); Cholesterol 187 mg/dL (<200); Estimated Glomerular Filt Rate > 60; Glucose Random 78 mg/dL (60-115); HDL Cholesterol 60 mg/dL (>40); Iron 35 mcg/dL (30-160); LDL Cholesterol Calculated 113 mg/dL (<100); Percent Iron Saturation 9 % (15-50); Potassium 4.1 mmol/L (3.3-5.1); Sodium 140 mmol/L (135-145); Total Iron Binding Capacity 401 mcg/dL (228-428); Triglycerides 74 mg/dL (<150); Unsaturated Iron Binding 366 ug/dL
[2025-01-10 17:54] LABS: Vitamin B12 154 pg/mL (200-900); Vitamin D 25-OH Total 7.4 ng/mL (>30)
== END 2025-01-10 13:40 | disposition home or self-care (01) ==
LOC: HO.LAB 13:39
PROVIDERS: PCP Physician Assistant; Visit Provider Physician Assistant
DX: Z76.89 Persons encountering health services in other specified circumstances (principal); G82.20 Paraplegia, unspecified; S14.105S Unspecified injury at C5 level of cervical spinal cord, sequela; N31.9 Neuromuscular dysfunction of bladder, unspecified; D50.9 Iron deficiency anemia, unspecified; F41.8 Other specified anxiety disorders; E53.8 Deficiency of other specified B group vitamins; E55.9 Vitamin D deficiency, unspecified; Z98.1 Arthrodesis status; Z96.0 Presence of urogenital implants; Z13.1 Encounter for screening for diabetes mellitus
CPT/HCPCS: 36415; 80048; 80061; 80076; 82306; 82607; 83036; 83540; 85025; 96127; 99202

== ENCOUNTER 2025-05-30 14:20 | Outpatient (AMB) | payer MEDICARE, SELFPAY ==
--- NOTE | 2025-05-30 13:42 | A.OFFPC_ITS ---
Intake Visit Reasons: Annual Exam Stained Glass Glazier Required: No Allergies cashew nut (CASHEW NUT) Allergy (Unknown, Verified 05/30/25 13:42) VOMITING Iodinated Contrast Media (IV CONTRAST) Allergy (Unknown, Verified 05/30/25 13:42) HIVES latex (LATEX) Allergy (Unknown, Verified 05/30/25 13:42) RASH latix Allergy (Unknown, Uncoded 01/10/25 13:57) rash Tobacco use date assessed: 04/03/25 Dental Screening Dental Screen Date: 04/03/25 [facility] Medical History Iron deficiency anemia Vitamin B12 deficiency Vitamin D deficiency Anxiety Paraplegia Anemia Hx of neck injury Spinal cord injury, C5-C7 Social History Household Members: None Housing: House Do you presently have visiting nurse or other home services: Yes Patient Tobacco Use Status: Never used Tobacco e-Cigarette/Vaping Use: Never Used service: No Current occupational status: disabled Cognitive needs: No Hearing needs: No Vision needs: No Questionnaire Thrive Questionnaire Date Thrive assessed: 04/03/25 TATIANNA-7 AMB Questionnaire TATIANNA-7 Date TATIANNA - 7 assessed: 04/03/25 Source: Developed by Drs. Jamel Lockhart, Vesta Armijo, Pradip Fink and colleagues, with an educational nadege from [employer]. Physical exam (Primary Care) Tobacco/Smoking Status: Tobacco use Status Tobacco use date assessed 01/10/25 01/10/25 13:03 Patient Tobacco Use Status Never used Tobacco 01/10/25 13:03 e-Cigarette/Vaping Use Never Used 01/10/25 13:03 Thrive Assessment: Date of Thrive Assessment Date Thrive assessed 01/10/25 01/10/25 13:03 Coding
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
[2025-05-30 14:26] VITALS: BP 90/56; PULSE 84; RESP 16; TEMP 37; O2SAT 98; BMI 23.3
--- OUTSIDE RECORDS SUMMARY | 2025-05-30 19:23 | XMS_ITS | Encounter Summary ---
Author Organization [facility] Address [address] [place] [address] Care Team Providers Care Animal Sitter Name Role Phone Sherman Marquez MD Primary Care Provider [phone] Encounter Details Date Type Department Care Team (Late st Contact Info) Description 04/12/2025 Lab Requisition [facility] - Main Lab [address] [facility] [place] [phone] Jessy Sykes, [place] [address] [facility] [address] [place] [address] Dysuria Social History Tobacco Use Types Packs/Day Years Used Date Smoking Tobacco: Never Assessed Comments Unknown Sex and Gender Information Value Date Recorded Sex Assigned at Female 11/28/2024 1:18 PM EDT Legal Sex Female 5:50 PM EST Gender Identity Female 11/28/2024 1:18 PM EDT Sexual Orientation Straight 11/28/2024 1: 18 PM EDT documented as of this encounter Plan of Treatment Not on file documented as of this encounter Procedures Procedure Name Priority Date/Time Associated Diagnosis Comments BACTERIAL IDENTIFICATION AND SUSCEPTIBILITY, AEROBIC Routine 04/11/2025 12:00 AM EDT Dysuria documented in this encounter Results * (ABNORMAL) Bacterial identification and susceptibility, aerobic (04/11/2025 12:00 AM EDT) Culture, Bacterial ID and Sensitivity Klebsiella pneumoniae ssp pneumoniae(A) MARY 04/14/2025 9:34 AM EDT [facility] ([facility] Comment: This is an edited result. Previous organism was Gram negative bacilli on 04/13/2025 at 1022 EDT. Culture, Bacterial ID and Sensitivity Pseudomonas aeruginosa(A) MARY 04/14/2025 9:34 AM EDT [facility]) [facility] Comment: The organism value for this result has been updated. These results have been appended to the previously preliminary verified report. This is an edited result. Previous organism was Gram negative bacilli on 04/13/2025 at 1022 EDT. Other Urine specimen from urinary conduit / Unknown 04/11/2025 04/12/2025 9:42 AM EDT Narrative Organism Antibiotic Method Susceptibility Klebsiella pneumoniae ssp pneumoniae Amoxicillin/Clavulanate MARY <=2 ug/ml: Susceptible Klebsiella pneumoniae ssp pneumoniae Ampicillin/Sulbactam MARY 4 ug/ml: Susceptible Klebsiella pneumoniae ssp pneumoniae Piperacillin/Tazobactam MARY <=4 ug/ml: Susceptible Klebsiella pneumoniae ssp pneumoniae Cefazolin (Urine) MARY 2 ug/ml: Susceptible Klebsiella pneumoniae ssp pneumoniae Cefoxitin MARY <=4 ug/ml: Susceptible Klebsiella pneumoniae ssp pneumoniae Ceftazidime MARY <=0.5 ug/ml: Susceptible Klebsiella pneumoniae ssp pneumoniae Ceftriaxone MARY <=0.25 ug/ml: Susceptible Klebsiella pneumoniae ssp pneumoniae Cefepime MARY <=0.12 ug/ml: Susceptible Klebsiella pneumoniae ssp pneumoniae Meropenem MARY <=0.25 ug/ml: Susceptible Klebsiella pneumoniae ssp pneumoniae Amikacin MARY <=1 ug/ml: Susceptible Klebsiella pneumoniae ssp pneumoniae Gentamicin MARY <=1 ug/ml: Susceptible Klebsiella pneumoniae ssp pneumoniae Ciprofloxacin MARY <=0.06 ug/ml: Susceptible Klebsiella pneumoniae ssp pneumoniae Levofloxacin MARY <=0.12 ug/ml: Susceptible Klebsiella pneumoniae ssp pneumoniae Nitrofurantoin MARY 64 ug/ml: Intermediate Klebsiella pneumoniae ssp pneumoniae Trimethoprim/Sulfamethoxazo le MARY <=20 ug/ml: Susceptible Pseudomonas aeruginosa Piperacillin/Tazobactam MARY <=4 ug/ml: Susceptible Pseudomonas aeruginosa Ceftazidime MARY <=0.5 ug/ml: Susceptible Pseudomonas aeruginosa Cefepime MARY 0.5 ug/ml: Susceptible Pseudomonas aeruginosa Meropenem MARY 1 ug/ml: Susceptible Pseudomonas aeruginosa Amikacin MARY 2 ug/ml: Susceptible Pseudomonas aeruginosa Ciprofloxacin MARY <=0.06 ug/ml: Susceptible Pseudomonas aeruginosa Levofloxacin MARY 0.25 ug/ml: Susceptible us Jessy [facility] MICROBIOLOGY - GENERAL ORDER SABINA Final Result [facility] ([facility]) [facility] [address] [place] [address], documented in this encounter Visit Diagnoses Diagnosis Dysuria documented in this encounter Care Teams Animal Sitter Relationship Specialty Start Date End Date Sherman Marquez MD [address] [place] [address] Dr Denise [address] [place] [address] PCP - General Internal Medicine 11/28/24 documented as of this encounter
--- OUTSIDE RECORDS SUMMARY | 2025-05-30 19:23 | XMS_ITS | Clinical Summary ---
Author Organization [facility] Address [address] [facility] [address] [place] [id number] Phone Care Team Providers Care Launch Check Out Name Role Phone Sherman Marquez MD Primary Care Provider Allergies Active Allergy Reactions Criticality Noted Date Comments Cashew Nut 10/15/2021 Latex 10/15/2021 Family History Medical History Relation Comments No Known Problems Father No Known Problems Mother Relation Status Comments Father Mother Social History Tobacco Use Types Packs/Day Years Used Date Smoking Tobacco: Never Smokeless Tobacco: Never Alcohol Use Standard Drinks/Week Comments Never 0 (1 standard drink = 0.6 oz pur e alcohol) Education Answer Date Recorded Are you interested in more education? Not on queta e 12/10/2022 Are you concerned about learning? Not on file 12/10/2022 No 12/10/2022 No 12/10/2022 Digital Access Answer Date Recorded No 01/04/2023 No 01/04/2023 No 01/04/2023 Reliable internet access at home? Not on file 01/04/2023 Device with a working camera? Not on file Comments Unknown Sex and Gender Information Value Date Recorded Sex Assigned at Female 04/30/2021 4:49 PM EDT Legal Sex Female 5:24 PM EST Gender Identity Female 04/30/2021 4:49 PM EDT Sexual Orientation Straight 04/30/2021 4: 49 PM EDT Last Filed Vital Signs Vital Sign Reading Time Taken Comments Blood Pressure 114/74 10/15/2021 1:56 PM EST Pulse 98 10/15/2021 1:56 PM EST Temperature - - Respiratory Rate 20 10/15/2021 1:56 PM EST Oxygen Saturation 98% 10/15/2021 1:56 PM EST Inhaled Oxygen Concentration - - Weight 74.8 kg (165 lb) 06/18/2021 2:01 PM EST Height 176.5 cm (5' 9.5 ) 06/18/2021 2:01 PM EST Body Mass Index 24.02 06/18/2021 2:01 PM EST Plan of Treatment Health Maintenance Due Date Last Done Comments Adult Td,Tdap Booster 1984 DEPRESSION SCREENING 1996 HEPATITIS C SCREENING 2002 HIV ONE-TIME SCREENING (18-65 YEARS) 2002 PAP SMEAR 2005 SMOKING STATUS SCREENING (Once After 26 Yrs) 2010 MAMMOGRAM 2024 INFLUENZA VACCINE (#1) 2025 0, 04/29/2019, 05/10/2018, Additional history exists COVID-19 VACCINE ( season) 2025 12/13/2020, 11/21/2020 HEPATITIS A VACCINES Aged Out No long er eligible based on patient's age to complete this topic HIB VACCINES Aged Out No longer eligi ble based on patient's age to complete this topic MENINGOCOCCAL VACCINES (ACWY) Aged Out No longer eligible based on patient's age to complete this topic MENINGOCOCCAL VACCINES (B) Aged Out N o longer eligible based on patient's age to complete this topic PNEUMOCOCCAL VACCINES (0-49 years) Aged Out No longer eligible based on patient's age to complete this topic Medical Devices Not on file Insurance [employer] PPO MEDICARE REPLACEMENT MEDICARE PART A & B [employer] O MEDICARE REPLACEMENT MEDICARE PART A & B [employer] O MEDICARE REPLACEMENT MEDICARE PART A & B AETNA PPO MEDICARE REPLACEMENT MEDICARE PART A & B [employer] O MEDICARE REPLACEMENT MEDICARE PART A & B [employer] O MEDICARE REPLACEMENT MEDICARE PART A & B [employer] O MEDICARE REPLACEMENT MEDICARE PART A & B [employer] PPO MEDICARE REPLACEMENT MEDICARE PART A & B [employer] PPO MEDICARE REPLACEMENT MEDICARE PART A & B Care Teams Launch Check Out Relationship Specialty Start Date End Date Sherman Marquez MD [address] [place] [address] [place] [address] PCP - General Internal Medicine 04/30/21 Additional Source Comments The information contained in this document represents components of the legal health record. It is not the complete legal health record.[facility]
--- OUTSIDE RECORDS SUMMARY | 2025-05-30 19:23 | XMS_ITS | Clinical Summary ---
Author Organization [facility] Address [address] [place] [address] Phone Care Team Providers Care Human Services Professional Name Role Phone Sherman Marquez MD Primary Care Provider [phone] Encounters Date Type Department Care Team Description 04/12/2025 Lab Requisition [facility] - Main Lab [address] [facility] [place] [address] Jessy Sykes PA Dysuria from Last 3 Months Social History Tobacco Use Types Packs/Day Years Used Date Smoking Tobacco: Never Assessed Comments Unknown Sex and Gender Information Value Date Recorded Sex Assigned at Female 11/28/2024 1:18 PM EDT Legal Sex Female 5:50 PM EST Gender Identity Female 11/28/2024 1:18 PM EDT Sexual Orientation Straight 11/28/2024 1: 18 PM EDT Plan of Treatment Health Maintenance Due Date Last Done Comments Breast Cancer Screening 1984 DTaP,Tdap,and Td Vaccines (1 - Tdap) 10/22/2003 Hepatitis B Vaccines (1 of 3 - 19+ 3-dose series) 10/22/2003 Cervical Cancer Screening: Pap Smear 2005 HPV Vaccines (1 - 3-dose SCDM series) 10/22/2011 HIV Screening 05/18/2024 Hepatitis C Screening 05/18/2024 Medicare Annual Wellness Visit 05/18/2024 Social Influencers of Health Screening 05/18/2024 Depression Screening 08/10/2024 COVID-19 Vaccine ( season) 2025 06/14/2023, 06/14/2022, 07/18/2021, Additional history exists Influenza Vaccine (#1) 2025 5, 06/14/2023, 05/05/2020, Additional history exists RSV Immunization Adult Patients (1 - 1-dose 75+ series) 10/22/2059 HIB Vaccines Aged Out No longer eligi ble based on patient's age to complete this topic Hepatitis A Vaccines Aged Out No long er eligible based on patient's age to complete this topic IPV Vaccines Aged Out No longer eligi ble based on patient's age to complete this topic MMR Vaccines Aged Out No longer eligi ble based on patient's age to complete this topic Meningococcal ACWY Vaccine Aged Out N o longer eligible based on patient's age to complete this topic Meningococcal B Vaccine Aged Out No l onger eligible based on patient's age to complete this topic Pneumococcal Vaccine: Pediatrics (0 to 5 Years) and At-Risk Patients (6 to 49 Years) Aged Out No longer eligible based on patient's age to complete this topic RSV Immunization Patients Under 20 months Aged Out No longer eligible based on patient's age to complete this topic Varicella Vaccines Aged Out No longer eligible based on patient's age to complete this topic Procedures Procedure Name Priority Date/Time Associated Diagnosis Comments BACTERIAL IDENTIFICATION AND SUSCEPTIBILITY, AEROBIC Routine 04/11/2025 12:00 AM EDT Dysuria from Last 3 Months Results * (ABNORMAL) Bacterial identification and susceptibility, aerobic (04/11/2025 12:00 AM EDT) Culture, Bacterial ID and Sensitivity Klebsiella pneumoniae ssp pneumoniae(A) MARY 04/14/2025 9:34 AM EDT [facility] Comment: This is an edited result. Previous organism was Gram negative bacilli on 04/13/2025 at 1022 EDT. Culture, Bacterial ID and Sensitivity Pseudomonas aeruginosa(A) MARY 04/14/2025 9:34 AM EDT [facility] Comment: The organism value for this [...] MICROBIOLOGY - GENERAL ORDER SABINA Final Result [facility] ([facility]) HOSPITAL LAB [address] [place] [address], from Last 3 Months Insurance [employer] MEDICARE ADVANTAGE Care Teams Human Services Professional Relationship Specialty Start Date End Date Sherman Marquez MD [address] [place] [address] Dr Edouard [place] PCP - General Internal Medicine 11/28/24
== END 2025-05-30 15:20 | disposition home or self-care (01) ==
LOC: HO.HMCHD 14:20
PROVIDERS: PCP Physician Assistant; Visit Provider Physician Assistant
DX: E53.8 Deficiency of other specified B group vitamins (principal)

== ENCOUNTER → 2025-05-30 14:20 | Outpatient (BNVA) | payer MEDICARE, SELFPAY | PROVIDERS: PCP Physician Assistant; Visit Provider Physician Assistant | DX: Z00.00 Encounter for general adult medical examination without abnormal findings (principal); S90.111A Contusion of right great toe without damage to nail, initial encounter; E53.8 Deficiency of other specified B group vitamins; E55.9 Vitamin D deficiency, unspecified; N31.9 Neuromuscular dysfunction of bladder, unspecified; D50.9 Iron deficiency anemia, unspecified; G82.20 Paraplegia, unspecified; S19.9XXS Unspecified injury of neck, sequela; F32.A Depression, unspecified; F41.9 Anxiety disorder, unspecified; Z79.899 Other long term (current) drug therapy; X58.XXXA Exposure to other specified factors, initial encounter; Y93.9 Activity, unspecified; Y92.9 Unspecified place or not applicable; Y99.9 Unspecified external cause status | CPT/HCPCS: 96372; 99396; J3420 ==